=== PATIENT | female | born 1970 | race Caucasian/White ===

== ENCOUNTER → 2018-09-28 | Outpatient (CLI) | payer OTHER ==
[~2018-09-28] MED LIST: CLIN300C3 PO
== END ==
LOC: LAB FS 08:46
PROVIDERS: ATTEND Pediatrics
DX: E11.9 Type 2 diabetes mellitus without complications (principal)
CPT/HCPCS: 36415; 83036

== ENCOUNTER → 2018-10-31 | Outpatient (CLI) | payer OTHER ==
--- NOTE | 2018-10-31 19:12 | Diagnostic Imaging Report ---
INDICATION: Back pain. AP and lateral views of the lumbar spine are obtained. FINDINGS: The lumbar vertebrae are normal in height and alignment. There is no fracture or subluxation. Disc spaces are normal in height. There is no acute bony abnormality. IMPRESSION: No acute bony abnormality of lumbar spine. Dictated by: Dictated on workstation # [id number]
== END ==
LOC: RAD 16:21
PROVIDERS: ATTEND Pediatrics
DX: M54.41 Lumbago with sciatica, right side (principal); M54.42 Lumbago with sciatica, left side
CPT/HCPCS: 72100

== ENCOUNTER 2022-03-13 09:35 | Emergency (ER) | payer OTHER ==
[~2022-03-13] VITALS: Ht 177.8 cm; Wt 145.0 kg
[2022-03-13 10:26] LABS: BASOPHILS # (AUTO) 0.1 10^3/uL (0.0-0.1); BASOPHILS % (AUTO) 1 % (0-10); EOSINOPHILS # (AUTO) 0.2 10^3/uL (0.0-0.3); EOSINOPHILS % (AUTO) 2 % (0-10); HEMATOCRIT 41 % (35-52); HEMOGLOBIN 12.3 g/dL (11.5-16.0); LYMPHOCYTES # (AUTO) 2.7 10^3/uL (1.0-4.0); LYMPHOCYTES % (AUTO) 31 % (12-44); MEAN CORPUSCULAR HEMOGLOBIN 24 pg (25-34); MEAN CORPUSCULAR HGB CONC 30 g/dL (32-36); MEAN CORPUSCULAR VOLUME 82 fL (80-99); MEAN PLATELET VOLUME 9.5 fL (9.0-12.2); MONOCYTES # (AUTO) 0.5 10^3/uL (0.0-1.0); MONOCYTES % (AUTO) 6 % (0-12); NEUTROPHILS # (AUTO) 5.3 10^3/uL (1.8-7.8); NEUTROPHILS % (AUTO) 60 % (42-75); PLATELET COUNT 422 10^3/uL (130-400); WHITE BLOOD COUNT 8.7 10^3/uL (4.3-11.0)
[2022-03-13 10:32] LABS: ALBUMIN 4.1 GM/DL (3.2-4.5); INR 1.3 (0.8-1.4); POTASSIUM 3.9 MMOL/L (3.6-5.0); PROTHROMBIN TIME PATIENT 16.5 SEC (12.2-14.7)
--- NOTE | 2022-03-13 10:32 | ED Chest Pain ---
General Chief Complaint: Chest Pain Stated Complaint: IRR HEART RATE Nursing Triage Note: PT AMBULATE TO ROOM 06 WITHOUT DIFFICULTY WITH C/O CHEST DISCOMFORT, TACHYCARDIA, LEFT LEG SWELLING. PT STATES THAT SHE TOOK HER BP AT HOME THIS MORNING AND IT SHOWED HER PULSE AT 126BPM Source: patient Exam Limitations: no limitations History of Present Illness Date Seen by Provider: Mar 13, 2022 Time Seen by Provider: 10:00 Initial Comments Here with report of 3 days of palpitations and increasing fatigue with noticeable change last night. Also reports about a 4 pound weight gain in that same timeframe. Does have history of atrial flutter and fibrillation. She had previous ablation 4 years ago and has been relatively stable until 3 weeks ago when she was in [facility]. She had developed atrial flutter at that time and had cardioversion done. She is on sotalol and Eliquis. She reports taking those as directed although she has not had her morning dose of either. She follows with cardiology at . Her primary care doctor is Dr. Sheriff. Denies constitutional symptoms other than some night sweats which is typical for her. She has had tiredness and fatigue as well. Timing/Duration: getting worse, changing over time, 3-4 days Severity/Quality: mild, moderate Location: central Radiation: no radiation Prior CP/Workup: echocardiography, stress test Modifying Factors: improves with rest ASA po MOSHGIACH: Yes NTG SL MOSHGIACH: No Associated Symptoms: No abdominal pain, No edema; fatigue; No fever/chills, No nausea/vomiting; shortness of breath; No weakness Allergies and Home Medications Allergies Coded Allergies: sulfamethoxazole (Unverified Allergy, Intermediate, HIVES, 12/08/14) trimethoprim (Unverified Allergy, Intermediate, HIVES, 12/08/14) amoxicillin (Unverified Allergy, Unknown, 12/08/14) doxycycline (Unverified Allergy, Unknown, 12/08/14) Patient Home Medication List Home Medication List Reviewed: Yes Clindamycin Hcl (Cleocin Hcl) 300 Mg Capsule, 1 EACH PO QID Prescribed by: MARGARITO TRAN on 12/08/142024 Review of Systems Review of Systems Constitutional: see HPI; No chills, No fever EENTM: No Nose Congestion, No Throat Pain Respiratory: Denies Cough; Shortness of Air Cardiovascular: Irregular Heart Rate, Palpitations Gastrointestinal: Denies Nausea, Denies Vomiting Genitourinary: No Symptoms Reported Musculoskeletal: No muscle pain, No neck pain Skin: no symptoms reported Psychiatric/Neurological: Denies Numbness, Denies Weakness All Other Systems Reviewed Negative Unless Noted: Yes Past Fnezyas-Rpndbu-Umxeuf Hx Patient Social History Tobacco Use?: No Smoking Status: Never a Smoker Smokeless Tobacco Frequency: Never a User Use of E-Cig and/or Vaping dev: No Use of E-Cig and/or Vaping Marco: Never a User Substance type: Other Additional substance use comme: THC GUMMIES Substance frequency: Daily Alcohol Use?: No Pt feels they are or have been: No Immunizations Up To Date COVID19 Vaccine Director Of Recruitment And Admissions: MODERNA Past Medical History Surgeries: Yes Cardiac (Ablation), Gallbladder Respiratory: No Cardiac: Yes Atrial Fibrillation, Irregular Heartbeat, Palpitations Neurological: No Reproductive Disorders: No Sexually Transmitted Disease: No Family Medical History Reviewed Nursing Family Hx Physical Exam Vital Signs Vital Signs - First Documented 03/13/22 03/13/22 03/13/22 09:36 13:13 13:26 Temp 36.2 Pulse 125 Resp 18 B/P (MAP) 135/113 (120) Pulse Ox 100 O2 Delivery Room Air O2 Flow Rate 5.00 Capillary Refill : Less Than 3 Seconds Height, Weight, BMI Height: 5'10" Weight: 320lbs. oz. 145.591380jl; 45.00 BMI Method:Stated General Appearance: No Apparent Distress, WD/WN, Obese HEENT: PERRL/EOMI, Pharynx Normal Neck: Non Tender, Supple Respiratory: Lungs Clear, Normal Breath Sounds Cardiovascular: Irregularly Irregular, Tachycardia Gastrointestinal: No Pulsatile Mass, Non Tender, Soft Extremity: Normal Range of Motion, Non Tender Neurologic/Psychiatric: Alert, Oriented x3 Skin: Normal Color, Warm/Dry Procedures/Interventions Patient Education: Explained Benefits Agreement on procedure with pt: Yes Progress/Results/Core Measures Results/Orders Lab Results Laboratory Tests Test 03/13/22 09:47 Range/Units White Blood Count 8.7 4.3-11.0 10^3/uL Red Blood Count 5.05 3.80-5.11 10^6/uL Hemoglobin 12.3 11.5-16.0 g/dL Hematocrit 41 35-52 % Mean Corpuscular Volume 82 80-99 fL Mean Corpuscular Hemoglobin 24 L 25-34 pg Mean Corpuscular Hemoglobin Concent 30 L 32-36 g/dL Red Cell Distribution Width 15.0 H 10.0-14.5 % Platelet Count 422 H 130-400 10^3/uL Mean Platelet Volume 9.5 9.0-12.2 fL Immature Granulocyte % (Auto) 0 % Neutrophils (%) (Auto) 60 42-75 % Lymphocytes (%) (Auto) 31 12-44 % Monocytes (%) (Auto) 6 0-12 % Eosinophils (%) (Auto) 2 0-10 % Basophils (%) (Auto) 1 0-10 % Neutrophils # (Auto) 5.3 1.8-7.8 10^3/uL Lymphocytes # (Auto) 2.7 1.0-4.0 10^3/uL Monocytes # (Auto) 0.5 0.0-1.0 10^3/uL Eosinophils # (Auto) 0.2 0.0-0.3 10^3/uL Basophils # (Auto) 0.1 0.0-0.1 10^3/uL Immature Granulocyte # (Auto) 0.0 0.0-0.1 10^3/uL Prothrombin Time 16.5 H 12.2-14.7 SEC INR Comment 1.3 0.8-1.4 Activated Partial Thromboplast Time 33 24-35 SEC Sodium Level 141 135-145 MMOL/L Potassium Level 3.9 3.6-5.0 MMOL/L Chloride Level 105 98-107 MMOL/L Carbon Dioxide Level 22 21-32 MMOL/L Anion Gap 14 5-14 MMOL/L Blood Urea Nitrogen 14 7-18 MG/DL Creatinine 0.87 0.60-1.30 MG/DL Estimat Glomerular Filtration Rate 81 BUN/Creatinine Ratio 16 Glucose Level 148 H 70-105 MG/DL Calcium Level 9.3 8.5-10.1 MG/DL Corrected Calcium 9.2 8.5-10.1 MG/DL Magnesium Level 1.7 1.6-2.4 MG/DL Total Bilirubin 1.1 H 0.1-1.0 MG/DL Aspartate Amino Transf (AST/SGOT) 17 5-34 U/L Alanine Aminotransferase (ALT/SGPT) 24 0-55 U/L Alkaline Phosphatase 88 40-136 U/L Myoglobin 25.6 10.0-92.0 NG/ML Troponin I < 0.028 <0.028 NG/ML B-Type Natriuretic Peptide 374.1 H <100.0 PG/ML Total Protein 8.1 6.4-8.2 GM/DL Albumin 4.1 3.2-4.5 GM/DL My Orders Orders - JARED HOPKINS MD Ekg Tracing (03/13/22 09:38) Cbc With Automated Diff (03/13/22 10:19) Magnesium (03/13/22 10:19) Chest 1 View, Ap/Pa Only (03/13/22 10:19) Ekg Tracing (03/13/22 10:19) Comprehensive Metabolic Panel (03/13/22 10:19) Myoglobin Serum (03/13/22 10:19) Protime With Inr (03/13/22 10:19) Partial Thromboplastin Time (03/13/22 10:19) O2 (03/13/22 10:19) Monitor-Rhythm Ecg Trace Only (03/13/22 10:19) Lipid Panel (03/14/22 06:00) Ed Iv/Invasive Line Start (03/13/22 10:19) Bnp [place] (03/13/22 10:19) Troponin I [place] (03/13/22 10:19) Propofol Injection (Diprivan Injection) (03/13/22 12:38) Propofol Injection (Diprivan Injection) (03/13/22 14:00) Vital Signs/I&O 03/13/22 03/13/22 03/13/22 09:36 13:13 13:26 Temp 36.2 36.7 Pulse 125 125 Resp 18 17 B/P (MAP) 135/113 (120) 124/74 Pulse Ox 100 O2 Delivery Room Air OxyMask OxyMask O2 Flow Rate 5.00 5.00 Blood Pressure Mean: 120 Progress Progress Note : Progress Note Seen and evaluated. IV, labs, EKG and chest x-ray ordered. Patient and atrial fibrillation with rapid ventricular response. 1022: I did call cardiology and discussed the case with Dr. Pascual. Given that she has had previous ablation and has recently had successful cardioversion, Dr Pascual would like to pursue synchronized cardioversion in the emergency department. He will see the patient in the ER. 1216: We will pursue cardioversion. Dr Pascual has seen the patient. 1320: Patient did have successful cardioversion under moderate sedation with sedation performed by me and cardioversion performed by Dr. Pascual. We will monitor her for post sedation concerns and maintenance of sinus rhythm. 1400: Patient is doing much better. I have reevaluated her. She remains with sinus rhythm and the heart rate in the 80s. Discharged home with return precautions. Patient verbalized understanding instructions and agreement with plan. Initial ECG Impression Date: Mar 13, 2022 Initial ECG Impression Time: 09:44 Initial ECG Rate: 119 Initial ECG Rhythm: A Fib/Flutter Initial ECG Impression: Atrial Fibrillation w/RVR Comment Atrial fibrillation with rapid ventricular response with rightward axis. Interventricular conduction delay noted. No evidence of ST elevation NC. Interpreted by me and reviewed with cardiology. Diagnostic Imaging Diagonstic Imaging: Xray Plain Films/CT/US/NM/MRI: chest Comments [facility], [facility]. [place], [place] NAME: ALISON GRIGGS [facility] REC#: [id number] PT STATUS: REG ER : 1970 PHYSICIAN: JARED HOPKINS MD ADMIT DATE: 03/13/22/ER Draft Date of Exam:03/13/22 CHEST 1 VIEW, AP/PA ONLY Indication: Chest discomfort and tachycardia. Time of Exam: 10:36 AM No prior studies are available for comparison. Heart is enlarged. There is central congestion but no overt failure. No effusion or pneumothorax is detected. Impression: Cardiomegaly and central congestion. Dictated on workstation # [id number] Dict: 03/13/22 1038 Trans: 03/13/22 1053 CV [id number] Interpreted by: MARGA MELENDREZ MD Electronically signed by: Departure Impression Primary Impression: Atrial fibrillation with rapid ventricular response Additional Impression: Encounter for cardioversion procedure Disposition: 01 HOME, SELF-CARE Condition: Improved Departure-Patient Inst. Decision time for Depature: 14:12 Referrals: BARBRA SHERIFF MD (PCP/Family) Primary Care Physician Patient Instructions: Atrial Fibrillation (DC), Cardioversion, Moderate Sedation in Adults (DC) Add. Discharge Instructions: All discharge instructions reviewed with patient and/or family. Voiced understanding. Continue home medications as previously prescribed. Follow-up with your cooler supervisor this week for recheck and further evaluation. Call their office Tuesday morning for appointment and to discuss current events. Return for worse pain, fever, vomiting, weakness, breathing problems, rapid heart rate or other concerns as needed. JARED HOPKINS MD Mar 13, 2022 10:32
[2022-03-13 10:33] LABS: CALCIUM 9.3 MG/DL (8.5-10.1)
[2022-03-13 10:34] LABS: TOTAL PROTEIN 8.1 GM/DL (6.4-8.2)
[2022-03-13 10:36] LABS: BILIRUBIN,TOTAL 1.1 MG/DL (0.1-1.0)
[2022-03-13 10:38] LABS: CREATININE SERUM 0.87 MG/DL (0.60-1.30)
[2022-03-13 10:41] LABS: MAGNESIUM 1.7 MG/DL (1.6-2.4)
--- NOTE | 2022-03-13 10:53 | Diagnostic Imaging Report ---
Indication: Chest discomfort and tachycardia. Time of Exam: 10:36 AM No prior studies are available for comparison. Heart is enlarged. There is central congestion but no overt failure. No effusion or pneumothorax is detected. Impression: Cardiomegaly and central congestion. Dictated by: Dictated on workstation # [id number]
--- NOTE | 2022-03-13 11:05 | Consultation-Cardiology ---
HPI-Cardiology Cardiology Consultation: Date of Consultation 03/13/22 Time Seen by a Provider: 10:45 Date of Admission Attending Physician Joseph Kwok MD Admitting Physician Admitting Physician: Attending Physician: Consulting Physician MICHELLE HATHAWAY MD, MA, FACP, FACC, FSCAI, CCDS HPI: Chief Complaint: Malaise, weakness, irreg heart rate 51 yo woman with known PAF, s/p ablation PAF ablation x 2 ([id number]), s/p percutaneous ASD repair in 2017 (after PAF ablation), and subsequently on sotalol. Had CV at [place], [place] 2 weeks ago. Has been having malaise for two days and found pulse to be irreg today. Notes some increased shortness of breath for the last 1-2 days. No cp or palp. Chronic leg swelling that has been somewhat worse lately Review of Systems-Cardiology Review of Systems Constitutional: As described under HPI Eyes: No vision change Ears/Nose/Throat: No ear discharge, No nasal drainage, No recent hearing loss, No ulcerations Respiratory: As described under HPI Cardiovascular: As described under HPI Gastrointestinal: No diarrhea, No nausea, No vomiting Genitourinary: No dysuria, No hematuria, No urine frequency changes Musculoskeletal: No back pain, No joint pain Skin: No rash, No ulcerations Psychiatric/Neurological: No seizure, No focal weakness, No syncope Hematologic: No bleeding abnormalities YJY-Dvvouu-Vqtnwi Hx Patient Social History Smoking Status: Never a Smoker Former smoker/When Quit: Dec 06, 1995 Have you traveled recently?: No Alcohol Use?: No Substance type: Other Pt feels they are or have been: No Past Medical History PMH As described under Assessment. Allergies and Home Medications Allergies Coded Allergies: sulfamethoxazole (Unverified Allergy, Intermediate, HIVES, 12/08/14) trimethoprim (Unverified Allergy, Intermediate, HIVES, 12/08/14) amoxicillin (Unverified Allergy, Unknown, 12/08/14) doxycycline (Unverified Allergy, Unknown, 12/08/14) Patient Home Medication List Home Medication List Reviewed: Yes Clindamycin Hcl (Cleocin Hcl) 300 Mg Capsule, 1 EACH PO QID Prescribed by: MARGARITO TRAN on 12/08/142024 Physical Exam-Cardiology Physical Exam Vital Signs/I&O 03/13/22 09:36 Temp 36.2 Pulse 125 Resp 18 B/P (MAP) 135/113 (120) O2 Delivery Room Air Capillary Refill : Less Than 3 Seconds Constitutional: AAO x 3, well-developed, well-nourished HEENT: PERRL, EOMI, hearing is well preserved Neck: carotid pulses are 2 + bilaterally, with good upstrokes Respiratory: accessory muscle use, other (good, bilat air entry) Cardiovascular: regular rate-rhythm, S1 and S2, systolic murmur (faint RIC at card lore) Gastrointestinal: No tender; soft; No guarding, No rebound; audible bowel sounds Extremities: No clubbing, No cyanosis, No significant edema Neurologic/Psychiatric: other (moves all limb equally) Skin: normal color, warm/dry; No rash on exposed areas, No ulcerations on exposed areas Data Review Labs Laboratory Tests 03/13/22 09:47: White Blood Count 8.7, Red Blood Count 5.05, Hemoglobin 12.3, Hematocrit 41, Mean Corpuscular Volume 82, Mean Corpuscular Hemoglobin 24L, Mean Corpuscular Hemoglobin Concent 30L, Red Cell Distribution Width 15.0H, Platelet Count 422H, Mean Platelet Volume 9.5, Immature Granulocyte % (Auto) 0, Neutrophils (%) (Aut o) 60, Lymphocytes (%) (Auto) 31, Monocytes (%) (Auto) 6, Eosinophils (%) (Auto) 2, Basophils (%) (Auto) 1, Neutrophils # (Auto) 5.3, Lymphocytes # (Auto) 2.7, Monocytes # (Auto) 0.5, Eosinophils # (Auto) 0.2, Basophils # (Auto) 0.1, Immature Granulocyte # (Auto) 0.0, Prothrombin Time 16.5H, INR Comment 1.3, Activated Partial Thromboplast Time 33, Sodium Level 141, Potassium Level 3.9, Chloride Level 105, Carbon Dioxide Level 22, Anion Gap 14, Blood Urea Nitrogen 14, Creatinine 0.87, Estimat Glomerular Filtration Rate 81, BUN/Creatinine Ratio 16, Glucose Level 148H, Calcium Level 9.3, Corrected Calcium 9.2, Magnesium Level 1.7, Total Bilirubin 1.1H, Aspartate Amino Transf (AST/SGOT) 17, Alanine Aminotransferase (ALT/SGPT) 24, Alkaline Phosphatase 88, Myoglobin 25.6, Troponin I < 0.028, B-Type Natriuretic Peptide 374.1H, Total Protein 8.1, Albumin 4.1 Laboratory Tests 03/13/22 09:47 A/P-Cardiology Assessment/Admission Diagnosis PAF - recurrent on multiple occasions after ablation x 2 in 2016 and 2017 despite therapy with s[address]ol. Dr Sánchez manages at [facility] - treated with cardioversion at [place], [place] in early Oc 2021 - chronically on Eliquis (no interruption in the recent past; last dose last night) Percutaneous ASD repair in 2017 Untreated CRISTINA (awaiting CPAP, she says) Discussion and Recomendations * Discussed with her in detail. She says she was hospitalized at [place] two week ago. They did not give Eliquis the night of admission and underwent MICHELLE and cardioversion. Has not missed any Eliquis prior to that or after that. We discussed the procedure, risks, benefits, potential complications, and alternatives of elec CV. She understands and provides informed consent. Discussed with Dr Duran. Probable d/c if ablation successful and w/o complic. Advised early f/u with pcp, insurance verification clerk, and EP * Advised full sleep apnea treatment beginning tonight. Clinical Quality Measures AMI/AHF: ASA po Prior to arrival: Yes MICHELLE HATHAWAY MD FACP [facility] CCDS Mar 13, 2022 11:05
[2022-03-13] MEDS ORDERED: proPOfol 200 MG/20 ML (DIPRIVAN) VIAL IV ONE ×2 (12:38→14:00)
[2022-03-13 14:27] VITALS: BP 119/88
--- NOTE | 2022-03-13 22:44 | OPERATIVE REPORT ---
DATE OF SERVICE: 03/13/2022 PREOPERATIVE DIAGNOSIS: Atrial fibrillation. POSTOPERATIVE DIAGNOSIS: Sinus rhythm. PROCEDURE: External electrical cardioversion. DESCRIPTION OF PROCEDURE: External electrical cardioversion was carried out after having obtained an informed consent. 120 joules of synchronized biphasic shock was delivered through external pads, which converted atrial fibrillation to normal sinus rhythm. She tolerated the procedure well. Short-acting anesthesia was administered by the emergency room physician, Dr. Duran. Job ID: [id number] DocumentID: [id number] Dictated Date: 03/13/2022 14:41:20 Telecommunications Line Installer Date: 03/13/2022 22:43:54 Dictated By: MICHELLE HATHAWAY MD, MA, FACP, FACC,
== END 2022-03-13 14:30 | disposition home or self-care (01) ==
LOC: EDUNIT# 09:35 → ER 09:38
DX: I48.20 Chronic atrial fibrillation, unspecified (principal); Z45.018 Encounter for adjustment and management of other part of cardiac pacemaker
CPT/HCPCS: 36415; 71045; 80053; 83735; 83874; 83880; 84484; 85025; 85610; 85730; 93005; 93041

== ENCOUNTER 2022-03-26 15:34 | Emergency (ER) | payer OTHER ==
[~2022-03-26] VITALS: Ht 177 cm; Wt 147.0 kg
--- NOTE | 2022-03-26 15:46 | ED Cardiac General ---
History of Present Illness General Chief Complaint: Cardiac/General Problems Stated Complaint: IRR HR,FEET SWELLING,SOA Nursing Triage Note: PT ARRIVED VIA AMB WITH COMPLAINTS OF IRR HIGH HR STARTING THIS AM. PT ALSO COMPLAINS OF SOA AND SWELLING IN ANKLES. WAS SEEN HERE 2 WEEKS AGO. History of Present Illness Date Seen by Provider: Mar 26, 2022 Time Seen by Provider: 15:46 Initial Comments Patient presents to the emergency department for irregular high heart rate that started this AM. History of a fib in the past. Feels like she is back into the abnormal rhythm. Does take blood thinners and betablockers. Reports some heaviness in chest along with some shortness of breath. Has noticed some swelling in bilateral lower extremities in addition. Was seen here a few weeks ago for similar complaints and was cardioverted back into sinus rhythm. Timing/Duration: 4-6 hours Severity: mild Location: central Activities at Onset: none Associated Systoms: Chest Pain; No Diaphoresis, No Fever/Chills, No Headaches, No Nausea/Vomiting; Shortness of Air Allergies and Home Medications Allergies Coded Allergies: sulfamethoxazole (Unverified Allergy, Intermediate, HIVES, 12/08/14) trimethoprim (Unverified Allergy, Intermediate, HIVES, 12/08/14) amoxicillin (Unverified Allergy, Unknown, 12/08/14) doxycycline (Unverified Allergy, Unknown, 12/08/14) Patient Home Medication List Home Medication List Reviewed: Yes Clindamycin Hcl (Cleocin Hcl) 300 Mg Capsule, 1 EACH PO QID Prescribed by: MARGARITO TRAN on 12/08/142024 Review of Systems Review of Systems Constitutional: No chills, No dizziness, No fever, No malaise EENTM: No Symptoms Reported Respiratory: Denies Cough; Shortness of Air; Denies Wheezing Cardiovascular: Chest Pain, Irregular Heart Rate; Denies Lightheadedness; Palpitations Gastrointestinal: Denies Abdominal Pain, Denies Diarrhea, Denies Nausea, Denies Vomiting Genitourinary: No Symptoms Reported Musculoskeletal: no symptoms reported Skin: no symptoms reported Psychiatric/Neurological: Denies Headache All Other Systems Reviewed Negative Unless Noted: Yes Past Mqpjrti-Jeausi-Ylykel Hx Patient Social History Tobacco Use?: No Substance use?: Yes Additional substance use comme: GUMMIES TO SLEEP Alcohol Use?: No Immunizations Up To Date COVID19 Vaccine Med Dir: MODERNA Past Medical History Surgeries: Yes Cardiac, Gallbladder Respiratory: No Cardiac: Yes Atrial Fibrillation, Irregular Heartbeat, Palpitations Neurological: No Reproductive Disorders: No Sexually Transmitted Disease: No Family Medical History Reviewed Nursing Family Hx Physical Exam Vital Signs Vital Signs - First Documented 03/26/22 15:38 Temp 36.3 Pulse 141 Resp 16 B/P (MAP) 115/75 (88) Pulse Ox 94 O2 Delivery Room Air Capillary Refill : Height, Weight, BMI Height: 5'10" Weight: 320lbs. oz. 145.462818yv; 46.00 BMI Method:Stated General Appearance: No Apparent Distress Neck: Full Range of Motion, Normal Inspection, Non Tender, Supple Respiratory: Chest Non Tender, Lungs Clear, Normal Breath Sounds, No Accessory Muscle Use, No Respiratory Distress Cardiovascular: Normal Peripheral Pulses, Irregularly Irregular, Other (mild lower extremity swelling 1+ appreciated) Gastrointestinal: Normal Bowel Sounds, Non Tender, Soft Extremity: Normal Inspection, Normal Range of Motion, Non Tender Neurologic/Psychiatric: Alert, Oriented x3 Skin: Normal Color, Warm/Dry Procedures/Interventions Patient Education: Explained Benefits Progress/Results/Core Measures Results/Orders Lab Results Laboratory Tests Test 03/26/22 15:45 Range/Units White Blood Count 10.4 4.3-11.0 10^3/uL Red Blood Count 4.58 3.80-5.11 10^6/uL Hemoglobin 11.3 L 11.5-16.0 g/dL Hematocrit 37 35-52 % Mean Corpuscular Volume 82 80-99 fL Mean Corpuscular Hemoglobin 25 25-34 pg Mean Corpuscular Hemoglobin Concent 30 L 32-36 g/dL Red Cell Distribution Width 14.9 H 10.0-14.5 % Platelet Count 330 130-400 10^3/uL Mean Platelet Volume 9.0 9.0-12.2 fL Immature Granulocyte % (Auto) 0 % Neutrophils (%) (Auto) 66 42-75 % Lymphocytes (%) (Auto) 23 12-44 % Monocytes (%) (Auto) 7 0-12 % Eosinophils (%) (Auto) 3 0-10 % Basophils (%) (Auto) 1 0-10 % Neutrophils # (Auto) 6.9 1.8-7.8 10^3/uL Lymphocytes # (Auto) 2.4 1.0-4.0 10^3/uL Monocytes # (Auto) 0.7 0.0-1.0 10^3/uL Eosinophils # (Auto) 0.3 0.0-0.3 10^3/uL Basophils # (Auto) 0.1 0.0-0.1 10^3/uL Immature Granulocyte # (Auto) 0.0 0.0-0.1 10^3/uL Prothrombin Time 16.0 H 12.2-14.7 SEC INR Comment 1.2 0.8-1.4 Activated Partial Thromboplast Time 34 24-35 SEC Sodium Level 143 135-145 MMOL/L Potassium Level 3.2 L 3.6-5.0 MMOL/L Chloride Level 106 98-107 MMOL/L Carbon Dioxide Level 24 21-32 MMOL/L Anion Gap 13 5-14 MMOL/L Blood Urea Nitrogen 7 7-18 MG/DL Creatinine 0.80 0.60-1.30 MG/DL Estimat Glomerular Filtration Rate 89 BUN/Creatinine Ratio 9 Glucose Level 114 H 70-105 MG/DL Calcium Level 9.2 8.5-10.1 MG/DL Corrected Calcium 9.1 8.5-10.1 MG/DL Magnesium Level 1.6 1.6-2.4 MG/DL Total Bilirubin 1.0 0.1-1.0 MG/DL Aspartate Amino Transf (AST/SGOT) 13 5-34 U/L Alanine Aminotransferase (ALT/SGPT) 16 0-55 U/L Alkaline Phosphatase 88 40-136 U/L Myoglobin 25.4 10.0-92.0 NG/ML Troponin I < 0.028 <0.028 NG/ML B-Type Natriuretic Peptide 447.5 H <100.0 PG/ML Total Protein 7.7 6.4-8.2 GM/DL Albumin 4.1 3.2-4.5 GM/DL Lipase 18 8-78 U/L My Orders Orders - VANESSA DODD APRN Cbc With Automated Diff (03/26/22 15:49) Magnesium (03/26/22 15:49) Chest 1 View, Ap/Pa Only (03/26/22 15:49) Comprehensive Metabolic Panel (03/26/22 15:49) Myoglobin Serum (03/26/22 15:49) Protime With Inr (03/26/22 15:49) Partial Thromboplastin Time (03/26/22 15:49) O2 (03/26/22 15:49) Monitor-Rhythm Ecg Trace Only (03/26/22 15:49) Ed Iv/Invasive Line Start (03/26/22 15:49) Lipase (03/26/22 15:49) Bnp Maryann (03/26/22 15:49) Troponin I Maryann (03/26/22 15:49) Diltiazem Injection (Cardizem Injection) (03/26/22 16:00) Diltiazem Drip Pre-Mix (Cardizem Drip Pr (03/26/22 16:00) Potassium Chloride (Tablet) (K Dur Table (03/26/22 16:30) Furosemide Injection (Lasix Injection) (03/26/22 17:00) Ekg Tracing (03/26/22 17:14) Medications Given in ED Current Medications Medications Dose Ordered Sig/Tanisha Route Start Time Stop Time Status Last Admin Dose Admin Diltiazem HCl 10 mg ONCE ONCE IVP 03/26/22 16:00 03/26/22 16:01 DC 03/26/22 15:58 10 MG Furosemide 20 mg ONCE ONCE IVP 03/26/22 17:00 03/26/22 17:01 DC 03/26/22 17:28 20 MG Potassium Chloride 20 meq ONCE ONCE PO 03/26/22 16:30 03/26/22 16:31 DC 03/26/22 16:29 20 MEQ Vital Signs/I&O 03/26/22 03/26/22 03/26/22 03/26/22 15:38 15:58 16:00 17:35 Temp 36.3 Pulse 141 137 135 73 Resp 16 16 B/P (MAP) 115/75 (88) 115/78 115/78 119/72 Pulse Ox 94 98 O2 Delivery Room Air Room Air Progress Progress Note : Progress Note Patient arrives to the department in atrial fib. Will check labs and EKG. Will give bolus of Cardizem and start on gtt. 1723: Patient has converted to sinus rhythm. She reports that she feels a lot better. Has appointments scheduled next week. Will continue medications at home Declined admission to the hospital. Reasons to return to the ER were discussed with patient in addition. Initial ECG Impression Date: Mar 26, 2022 Initial ECG Impression Time: 15:43 Initial ECG Rate: 126 Initial ECG Rhythm: A Fib/Flutter Initial ECG Impression: Atrial Fibrillation w/RVR EKG : EKG Time: 17:16 Rate: 71 Rhythm: Normal Sinus Diagnostic Imaging Diagonstic Imaging: Xray Plain Films/CT/US/NM/MRI: chest Comments NAME: ALISON GRIGGS [facility] REC#: [id number] PT STATUS: REG ER : 1970 PHYSICIAN: VANESSA DODD APRN ADMIT DATE: 03/26/22/ER Draft Date of Exam:03/26/22 CHEST 1 VIEW, AP/PA ONLY INDICATION: Tachycardia and shortness of breath. TECHNIQUE: Frontal chest obtained at 02:52 p.m. and compared to 03/13/2022. FINDINGS: There is cardiomegaly. There is prominence of the central pulmonary arteries, compatible with pulmonary arterial hypertension. There is no gualberto edema or consolidation or pleural fluid. IMPRESSION: Cardiomegaly and findings compatible with pulmonary arterial hypertension. No acute consolidation or pleural fluid. Dictated on workstation # [id number] Dict: 03/26/22 1614 Trans: 03/26/22 1622 [id number] Interpreted by: ARUNA WOLF MD Electronically signed by: Departure Impression Primary Impression: Atrial fibrillation with rapid ventricular response Disposition: 01 HOME, SELF-CARE Condition: Stable Departure-Patient Inst. Decision time for Depature: 17:25 Referrals: BARBRA SHERIFF MD (PCP/Family) Primary Care Physician Patient Instructions: Atrial Fibrillation (DC) Add. Discharge Instructions: 1. You converted back to sinus rhythm today. 2. Continue your medications as directed. 3. Follow up with PCP as needed. 4. Return here if worse or concerns. All discharge instructions reviewed with patient and/or family. Voiced under standing. VANESSA DODD APRN Mar 26, 2022 15:46
[2022-03-26 15:56] LABS: BASOPHILS # (AUTO) 0.1 10^3/uL (0.0-0.1); BASOPHILS % (AUTO) 1 % (0-10); EOSINOPHILS # (AUTO) 0.3 10^3/uL (0.0-0.3); EOSINOPHILS % (AUTO) 3 % (0-10); HEMATOCRIT 37 % (35-52); HEMOGLOBIN 11.3 g/dL (11.5-16.0); LYMPHOCYTES # (AUTO) 2.4 10^3/uL (1.0-4.0); LYMPHOCYTES % (AUTO) 23 % (12-44); MEAN CORPUSCULAR HEMOGLOBIN 25 pg (25-34); MEAN CORPUSCULAR HGB CONC 30 g/dL (32-36); MEAN CORPUSCULAR VOLUME 82 fL (80-99); MONOCYTES # (AUTO) 0.7 10^3/uL (0.0-1.0); MONOCYTES % (AUTO) 7 % (0-12); NEUTROPHILS # (AUTO) 6.9 10^3/uL (1.8-7.8); NEUTROPHILS % (AUTO) 66 % (42-75); PLATELET COUNT 330 10^3/uL (130-400); WHITE BLOOD COUNT 10.4 10^3/uL (4.3-11.0)
[2022-03-26] MEDS ORDERED: dilTIAZem DRIP PRE-MIX 125 ML IV SCH (16:00)
[2022-03-26 16:10] LABS: ALBUMIN 4.1 GM/DL (3.2-4.5)
[2022-03-26 16:11] LABS: POTASSIUM 3.2 MMOL/L (3.6-5.0)
[2022-03-26 16:12] LABS: CALCIUM 9.2 MG/DL (8.5-10.1)
[2022-03-26 16:13] LABS: INR 1.2 (0.8-1.4); TOTAL PROTEIN 7.7 GM/DL (6.4-8.2)
[2022-03-26 16:17] LABS: CREATININE SERUM 0.8 MG/DL (0.60-1.30)
[2022-03-26 16:19] LABS: MAGNESIUM 1.6 MG/DL (1.6-2.4)
--- NOTE | 2022-03-26 16:23 | Diagnostic Imaging Report ---
INDICATION: Tachycardia and shortness of breath. TECHNIQUE: Frontal chest obtained at 02:52 p.m. and compared to 03/13/2022. FINDINGS: There is cardiomegaly. There is prominence of the central pulmonary arteries, compatible with pulmonary arterial hypertension. There is no gualberto edema or consolidation or pleural fluid. IMPRESSION: Cardiomegaly and findings compatible with pulmonary arterial hypertension. No acute consolidation or pleural fluid. Dictated by: Dictated on workstation # [id number]
[2022-03-26] MEDS ORDERED: KCL 20 MEQ TAB (K-DUR) PO ONE (16:30)
[2022-03-26] MEDS ORDERED: FUROSEMIDE 40 MG/4 ML INJ (LASIX) IVP ONE (17:00)
[2022-03-26 17:35] VITALS: BP 119/72
== END 2022-03-26 17:35 | disposition home or self-care (01) ==
LOC: EDUNIT# 15:34 → ER 15:36
DX: I48.20 Chronic atrial fibrillation, unspecified (principal); Z98.890 Other specified postprocedural states
CPT/HCPCS: 36415; 71045; 80053; 83690; 83735; 83874; 83880; 84484; 85025; 85610; 85730; 93005; 93041

== ENCOUNTER 2022-04-13 18:55 | Emergency (ER) | payer OTHER ==
--- NOTE | 2022-04-13 19:09 | ED Cardiac General ---
History of Present Illness General Chief Complaint: Cardiac/General Problems Stated Complaint: IRR HR,SOA,ANKLES SWELLING Source: patient Exam Limitations: no limitations (ANA HANNA APRN) History of Present Illness Date Seen by Provider: Apr 13, 2022 Time Seen by Provider: 19:00 Initial Comments Patient is a 51-year-old female who presents to the emergency department for evaluation of irregular heart rate, shortness of air, and increased ankle swelling that began a few hours prior to arrival. Patient has a history of atrial fibrillation and currently takes beta-blockers and anticoagulants. Patient states she had an ablation approximately 5 years ago and was placed on sotalol at that time. She states she had no issues for several years until the last few months. She states she has had 4 episodes of the symptomology requiring her to present to the emergency department. Twice she was cardioverted and at the last visit to the ER she converted with medication. Denies any chest pain. States she does have increased shortness of air with exertion. Her normal actuarial mathematician is at . She states the next month she has an admission planned for an increase in her sotalol to see if that would help prevent these episodes. Patient denies any specific provoking event. (ANA HANNA APRN) Allergies and Home Medications Allergies Coded Allergies: sulfamethoxazole (Unverified Allergy, Intermediate, HIVES, 12/08/14) trimethoprim (Unverified Allergy, Intermediate, HIVES, 12/08/14) amoxicillin (Unverified Allergy, Unknown, 12/08/14) doxycycline (Unverified Allergy, Unknown, 12/08/14) Patient Home Medication List Home Medication List Reviewed: Yes (ANA HANNA APRN) Clindamycin Hcl (Cleocin Hcl) 300 Mg Capsule, 1 EACH PO QID Prescribed by: MARGARITO TRAN on 12/08/142024 Review of Systems Review of Systems Constitutional: no symptoms reported EENTM: No Symptoms Reported Respiratory: See HPI, SOA With Exertion Cardiovascular: See HPI, Irregular Heart Rate Gastrointestinal: No Symptoms Reported Genitourinary: No Symptoms Reported Musculoskeletal: no symptoms reported Skin: no symptoms reported Psychiatric/Neurological: No Symptoms Reported Endocrine: No Symptoms Reported (ANA HANNA APRN) Past Yrwtxqw-Iroitt-Sblzqc Hx Patient Social History Tobacco Use?: No Use of E-Cig and/or Vaping dev: No Substance use?: No Alcohol Use?: No Pt feels they are or have been: No (ANA HANNA APRN) Immunizations Up To Date Influenza Vaccine Up-to-Date: No; Not Current First/Initial COVID19 Vaccinat: UNKNOWN Second COVID19 Vaccination Miguel: UNKNOWN Third COVID19 Vaccination Date: UNKNOWN (ANA HANNA APRN) Past Medical History Surgeries: Yes Cardiac, Gallbladder Respiratory: No Cardiac: Yes Atrial Fibrillation, Irregular Heartbeat, Palpitations Neurological: No Reproductive Disorders: No Sexually Transmitted Disease: No (ANA HANNA APRN) Physical Exam Vital Signs Vital Signs - First Documented 04/13/22 19:02 Temp 36.7 Pulse 135 Resp 20 B/P (MAP) 137/101 (113) Pulse Ox 97 O2 Delivery Room Air (KATEY,CHRIS K DO) Vital Signs Capillary Refill : Less Than 3 Seconds (ANA HANNA APRN) Height, Weight, BMI Height: 5'10" Weight: 320lbs. oz. 145.252728wj; 46.00 BMI Method:Stated General Appearance: No Apparent Distress, WD/WN HEENT: PERRL/EOMI, TMs Normal, Pharynx Normal Neck: Full Range of Motion, Normal Inspection, Non Tender, Supple Respiratory: Chest Non Tender, Lungs Clear, Normal Breath Sounds Cardiovascular: Irregularly Irregular, Tachycardia Gastrointestinal: Normal Bowel Sounds Neurologic/Psychiatric: Alert, Oriented x3, No Motor/Sensory Deficits, Normal Mood/Affect Skin: Normal Color, Warm/Dry (ANA HANNA APRN) Procedures/Interventions Patient Education: Explained Benefits (ANA HANNA APRN) Progress/Results/Core Measures Results/Orders Lab Results Laboratory Tests Test 04/13/22 19:10 Range/Units White Blood Count 10.2 4.3-11.0 10^3/uL Red Blood Count 4.80 3.80-5.11 10^6/uL Hemoglobin 11.7 11.5-16.0 g/dL Hematocrit 38 35-52 % Mean Corpuscular Volume 79 L 80-99 fL Mean Corpuscular Hemoglobin 24 L 25-34 pg Mean Corpuscular Hemoglobin Concent 31 L 32-36 g/dL Red Cell Distribution Width 15.0 H 10.0-14.5 % Platelet Count 344 130-400 10^3/uL Mean Platelet Volume 9.0 9.0-12.2 fL Immature Granulocyte % (Auto) 0 % Neutrophils (%) (Auto) 64 42-75 % Lymphocytes (%) (Auto) 26 12-44 % Monocytes (%) (Auto) 6 0-12 % Eosinophils (%) (Auto) 2 0-10 % Basophils (%) (Auto) 1 0-10 % Neutrophils # (Auto) 6.6 1.8-7.8 10^3/uL Lymphocytes # (Auto) 2.7 1.0-4.0 10^3/uL Monocytes # (Auto) 0.7 0.0-1.0 10^3/uL Eosinophils # (Auto) 0.2 0.0-0.3 10^3/uL Basophils # (Auto) 0.1 0.0-0.1 10^3/uL Immature Granulocyte # (Auto) 0.0 0.0-0.1 10^3/uL Prothrombin Time 15.4 H 12.2-14.7 SEC INR Comment 1.2 0.8-1.4 Activated Partial Thromboplast Time 34 24-35 SEC Sodium Level 140 135-145 MMOL/L Potassium Level 3.1 L 3.6-5.0 MMOL/L Chloride Level 103 98-107 MMOL/L Carbon Dioxide Level 23 21-32 MMOL/L Anion Gap 14 5-14 MMOL/L Blood Urea Nitrogen 9 7-18 MG/DL Creatinine 0.76 0.60-1.30 MG/DL Estimat Glomerular Filtration Rate 95 BUN/Creatinine Ratio 12 Glucose Level 157 H 70-105 MG/DL Calcium Level 9.2 8.5-10.1 MG/DL Corrected Calcium 9.1 8.5-10.1 MG/DL Magnesium Level 1.6 1.6-2.4 MG/DL Total Bilirubin 0.8 0.1-1.0 MG/DL Aspartate Amino Transf (AST/SGOT) 16 5-34 U/L Alanine Aminotransferase (ALT/SGPT) 14 0-55 U/L Alkaline Phosphatase 89 40-136 U/L Total Creatine Kinase 38 29-168 U/L Creatine Kinase MB 0.5 <6.6 NG/ML Myoglobin 18.9 10.0-92.0 NG/ML Troponin I < 0.028 <0.028 NG/ML B-Type Natriuretic Peptide 218.5 H <100.0 PG/ML Total Protein 7.7 6.4-8.2 GM/DL Albumin 4.1 3.2-4.5 GM/DL TSH Jayess Testing 2.27 0.35-4.94 UIU/ML Serum Test, Qualitative NEGATIVE NEGATIVE (CHRIS DEL TORO DO) My Orders Orders - CHRIS DEL TORO DO Ekg Tracing (04/13/22 18:58) Ed Iv/Invasive Line Start (04/13/22 19:01) O2 (04/13/22 19:) Monitor-Rhythm Ecg Trace Only (04/13/22 19:) Bnp Redwood (04/13/22 19:) Cbc With Automated Diff (04/13/22:) Comprehensive Metabolic Panel (04/13/22:) Creatine Kinase (04/13/22:) Creatine Kinase Mb (04/13/22:) Magnesium (04/13/22:) Protime With Inr (04/13/22:) Partial Thromboplastin Time (04/13/22 19:) Thyroid Analyzer (04/13/22 19:) Myoglobin Serum (04/13/22 19:01) Troponin I [place] (04/13/22 19:) Hcg,Qualitative Serum (04/13/22 19:02) (CHRIS DEL TORO DO) Vital Signs/I&O 04/13/22 04/13/22 04/13/22 04/13/22 19:02 19:23 20:22 21:26 Temp 36.7 36.7 Pulse 135 146 123 79 Resp 20 16 B/P (MAP) 137/101 (113) 129/118 119/102 152/103 Pulse Ox 97 96 O2 Delivery Room Air Room Air (CHRIS DEL TORO DO) Progress Progress Note : Progress Note Patient is nontoxic and well-hydrated on exam. No adventitious lung sounds or increased work of breathing noted. 1+ pitting edema noted to bilateral lower extremities. Patient's heart rate is irregularly irregular and she is ta chycardic. Vital signs are otherwise reassuring. Initial EKG reveals atrial fibrillation with RVR. Initial 10 mg injection of diltiazem was administered. There was some slight decrease in heart rate. Initial laboratory evaluation is reassuring. A second 10 mg dose of diltiazem was administered. Initially this had no effect on heart rate. Sometime thereafter patient spontaneously converted into sinus rhythm with heart rate in the 70s to 80s. She states her symptomology has resolved. She is requesting discharge home. This seems reasonable. Discussed importance of close follow-up with PCP/actuarial mathematician. Strict return precautions for urgent symptomology discussed. Patient verbalized understanding. (ANA HANNA APRN) EKG #1: EKG Time: 19:06 Rate: 140 Rhythm: A Fib/Flutter ECG Impression: Atrial Fibrillation EKG #2: EKG Time: 21:12 Rhythm: Normal Sinus Intervals: Normal (ANA HANNA APRN) Departure Impression Primary Impression: Atrial fibrillation with rapid ventricular response Disposition: 01 HOME, SELF-CARE Condition: Improved Departure-Patient Inst. Decision time for Depature: 21:15 (ANA HANNA APRN) Referrals: BARBRA SHERIFF MD (PCP/Family) Primary Care Physician Patient Instructions: Atrial Fibrillation (DC) ATTENDING PHYSICIAN NOTE: I WAS PHYSICALLY PRESENT ER PHYSICIAN, BUT I WAS NOT INVOLVED IN ANY DECISION MAKING OR ANY CARE OF THIS PATIENT, AND I AM NOT COLLABORATING PHYSICIAN. (CHRIS DEL TORO DO) ANA HANNA APRN Apr 13, 2022 19:09 CHRIS DEL TORO DO Apr 17, 2022 04:21
[2022-04-13 19:19] LABS: BASOPHILS # (AUTO) 0.1 10^3/uL (0.0-0.1); BASOPHILS % (AUTO) 1 % (0-10); EOSINOPHILS # (AUTO) 0.2 10^3/uL (0.0-0.3); EOSINOPHILS % (AUTO) 2 % (0-10); HEMATOCRIT 38 % (35-52); HEMOGLOBIN 11.7 g/dL (11.5-16.0); LYMPHOCYTES # (AUTO) 2.7 10^3/uL (1.0-4.0); LYMPHOCYTES % (AUTO) 26 % (12-44); MEAN CORPUSCULAR HEMOGLOBIN 24 pg (25-34); MEAN CORPUSCULAR HGB CONC 31 g/dL (32-36); MEAN CORPUSCULAR VOLUME 79 fL (80-99); MONOCYTES # (AUTO) 0.7 10^3/uL (0.0-1.0); MONOCYTES % (AUTO) 6 % (0-12); NEUTROPHILS # (AUTO) 6.6 10^3/uL (1.8-7.8); NEUTROPHILS % (AUTO) 64 % (42-75); PLATELET COUNT 344 10^3/uL (130-400); WHITE BLOOD COUNT 10.2 10^3/uL (4.3-11.0)
--- NOTE | 2022-04-13 19:40 | Diagnostic Imaging Report ---
Indication: Flutter. Time of Exam: 7:13 PM Correlation is made with prior chest from 03/26/2022. Heart is enlarged. There is central congestion but no overt failure. No infiltrate or effusion is seen. There is no pneumothorax. IMPRESSION: Cardiomegaly and central congestion. Dictated by: Dictated on workstation # [id number]
[2022-04-13 19:44] LABS: INR 1.2 (0.8-1.4); PROTHROMBIN TIME PATIENT 15.4 SEC (12.2-14.7)
[2022-04-13 19:49] LABS: ALANINE AMINOTRANSFERASE 14 U/L (0-55); ALBUMIN 4.1 GM/DL (3.2-4.5); ALKALINE PHOSPHATASE 89 U/L (40-136); BILIRUBIN,TOTAL 0.8 MG/DL (0.1-1.0); BUN/CREATININE RATIO 12; CALCIUM 9.2 MG/DL (8.5-10.1); CARBON DIOXIDE 23 MMOL/L (21-32); CHLORIDE 103 MMOL/L (98-107); CREATINE KINASE 38 U/L (29-168); CREATININE SERUM 0.76 MG/DL (0.60-1.30); GFR ESTIMATED 95; GLUCOSE 157 MG/DL (70-105); MAGNESIUM 1.6 MG/DL (1.6-2.4); POTASSIUM 3.1 MMOL/L (3.6-5.0); SODIUM 140 MMOL/L (135-145); TOTAL PROTEIN 7.7 GM/DL (6.4-8.2)
[2022-04-13 20:09] LABS: CREATINE KINASE MB 0.5 NG/ML (<6.6); TSH (THYROID ANALYZER) 2.27 UIU/ML (0.35-4.94)
[2022-04-13] MEDS ORDERED: dilTIAZem DRIP PRE-MIX 125 ML IV SCH (21:15)
[2022-04-13 21:26] VITALS: BP 152/103
== END 2022-04-13 21:29 | disposition home or self-care (01) ==
LOC: EDUNIT# 18:55 → ER 18:56
DX: I48.20 Chronic atrial fibrillation, unspecified (principal); Z28.310 Unvaccinated for COVID-19
CPT/HCPCS: 36415; 71045; 80053; 82550; 82553; 83735; 83874; 83880; 84443; 84484; 84703; 85025; 85610; 85730; 93005; 93041

== ENCOUNTER 2022-04-21 03:05 | Observation (INO) | payer OTHER ==
[~2022-04-21] VITALS: Ht 177.2 cm; Wt 150.7 kg
[2022-04-21] MEDS ORDERED: dilTIAZem DRIP PRE-MIX 125 ML IV STA (03:20)
--- NOTE | 2022-04-21 03:20 | ED Cardiac General ---
History of Present Illness General Chief Complaint: Cardiac/General Problems Stated Complaint: AFIB History of Present Illness Date Seen by Provider: Apr 21, 2022 Time Seen by Provider: 03:20 Initial Comments 51-year-old female with PMH of A. fib, is here with complaints of palpitations and tachycardia which woke her up from her sleep, and is associated with chest p ressure. Patient checked her watch and noticed that her heart rate is high in the 150s and 160s and came to the ER. Denies diaphoresis, headache, dizziness, abdominal pain, fever. Patient has been to the ER 5 times since January 2022 for the same reason. Patient's technical account representative is in but she is unable to go there and we do not have transport available to take her there. Allergies and Home Medications Allergies Coded Allergies: sulfamethoxazole (Unverified Allergy, Intermediate, HIVES, 12/08/14) trimethoprim (Unverified Allergy, Intermediate, HIVES, 12/08/14) amoxicillin (Unverified Allergy, Unknown, 12/08/14) doxycycline (Unverified Allergy, Unknown, 12/08/14) Patient Home Medication List Home Medication List Reviewed: Yes Clindamycin Hcl (Cleocin Hcl) 300 Mg Capsule, 1 EACH PO QID Prescribed by: MARGARITO TRAN on 12/08/142024 Review of Systems Review of Systems Constitutional: no symptoms reported EENTM: No Symptoms Reported Respiratory: No Symptoms Reported Cardiovascular: Irregular Heart Rate, Palpitations Gastrointestinal: No Symptoms Reported Genitourinary: No Symptoms Reported Musculoskeletal: no symptoms reported Skin: no symptoms reported Psychiatric/Neurological: No Symptoms Reported Endocrine: No Symptoms Reported Hematologic/Lymphatic: No Symptoms Reported Past Ogvpbmp-Sxeddk-Fqnbyd Hx Immunizations Up To Date First/Initial COVID19 Vaccinat: UNKNOWN Second COVID19 Vaccination Miguel: UNKNOWN Third COVID19 Vaccination Date: UNKNOWN Past Medical History Surgeries: Yes Cardiac, Gallbladder Respiratory: No Cardiac: Yes Atrial Fibrillation, Irregular Heartbeat, Palpitations Neurological: No Reproductive Disorders: No Sexually Transmitted Disease: No Physical Exam Vital Signs Vital Signs - First Documented 04/21/22 03:12 Temp 36.4 Pulse 145 Resp 22 B/P (MAP) 142/114 (123) Pulse Ox 94 O2 Delivery Room Air Capillary Refill : Height, Weight, BMI Height: 5'10" Weight: 320lbs. oz. 145.237476qh; 46.00 BMI Method:Stated General Appearance: Anxious, Mild Distress HEENT: PERRL/EOMI Neck: Full Range of Motion Respiratory: Chest Non Tender, Lungs Clear, Normal Breath Sounds, No Accessory Muscle Use, No Respiratory Distress Cardiovascular: Normal Peripheral Pulses, Irregularly Irregular, Tachycardia Gastrointestinal: Non Tender, Soft Extremity: Normal Range of Motion Neurologic/Psychiatric: Alert, Oriented x3, No Motor/Sensory Deficits Skin: Normal Color Procedures/Interventions Patient Education: Explained Benefits Progress/Results/Core Measures Results/Orders Lab Results Laboratory Tests Test 04/21/22 03:25 04/21/22 03:55 Range/Units White Blood Count 11.8 H 4.3-11.0 10^3/uL Red Blood Count 4.74 3.80-5.11 10^6/uL Hemoglobin 11.4 L 11.5-16.0 g/dL Hematocrit 38 35-52 % Mean Corpuscular Volume 80 80-99 fL Mean Corpuscular Hemoglobin 24 L 25-34 pg Mean Corpuscular Hemoglobin Concent 30 L 32-36 g/dL Red Cell Distribution Width 15.0 H 10.0-14.5 % Platelet Count 336 130-400 10^3/uL Mean Platelet Volume 8.8 L 9.0-12.2 fL Immature Granulocyte % (Auto) 0 % Neutrophils (%) (Auto) 79 H 42-75 % Lymphocytes (%) (Auto) 13 12-44 % Monocytes (%) (Auto) 5 0-12 % Eosinophils (%) (Auto) 3 0-10 % Basophils (%) (Auto) 1 0-10 % Neutrophils # (Auto) 9.3 H 1.8-7.8 10^3/uL Lymphocytes # (Auto) 1.5 1.0-4.0 10^3/uL Monocytes # (Auto) 0.6 0.0-1.0 10^3/uL Eosinophils # (Auto) 0.3 0.0-0.3 10^3/uL Basophils # (Auto) 0.1 0.0-0.1 10^3/uL Immature Granulocyte # (Auto) 0.0 0.0-0.1 10^3/uL Sodium Level 143 135-145 MMOL/L Potassium Level 3.4 L 3.6-5.0 MMOL/L Chloride Level 104 98-107 MMOL/L Carbon Dioxide Level 22 21-32 MMOL/L Anion Gap 17 H 5-14 MMOL/L Blood Urea Nitrogen 6 L 7-18 MG/DL Creatinine 0.76 0.60-1.30 MG/DL Estimat Glomerular Filtration Rate 95 BUN/Creatinine Ratio 8 Glucose Level 144 H 70-105 MG/DL Calcium Level 9.1 8.5-10.1 MG/DL Corrected Calcium 9.0 8.5-10.1 MG/DL Magnesium Level 1.5 L 1.6-2.4 MG/DL Total Bilirubin 1.3 H 0.1-1.0 MG/DL Aspartate Amino Transf (AST/SGOT) 19 5-34 U/L Alanine Aminotransferase (ALT/SGPT) 22 0-55 U/L Alkaline Phosphatase 85 40-136 U/L Troponin I < 0.028 <0.028 NG/ML Total Protein 7.7 6.4-8.2 GM/DL Albumin 4.1 3.2-4.5 GM/DL Urine Color YELLOW Urine Clarity CLEAR Urine pH 6.5 5-9 Urine Specific [place] 1.010 L 1.016-1.022 Urine Protein TRACE H NEGATIVE Urine Glucose (UA) NEGATIVE NEGATIVE Urine Ketones NEGATIVE NEGATIVE Urine Nitrite NEGATIVE NEGATIVE Urine Bilirubin NEGATIVE NEGATIVE Urine Urobilinogen 0.2 < = 1.0 MG/DL Urine Leukocyte Esterase NEGATIVE NEGATIVE Urine RBC (Auto) NEGATIVE NEGATIVE Urine RBC NONE /HPF Urine WBC NONE /HPF Urine Crystals NONE /LPF Urine Bacteria NEGATIVE /HPF Urine Casts NONE /LPF Urine Mucus NEGATIVE /LPF Urine Culture Indicated NO Urine Opiates Screen NEGATIVE NEGATIVE Urine Oxycodone Screen NEGATIVE NEGATIVE Urine Methadone Screen NEGATIVE NEGATIVE Urine Propoxyphene Screen NEGATIVE NEGATIVE Urine Barbiturates Screen NEGATIVE NEGATIVE Ur Tricyclic Antidepressants Screen NEGATIVE NEGATIVE Urine Phencyclidine Screen NEGATIVE NEGATIVE Urine Amphetamines Screen NEGATIVE NEGATIVE Urine Methamphetamines Screen NEGATIVE NEGATIVE Urine Benzodiazepines Screen NEGATIVE NEGATIVE Urine Cocaine Screen NEGATIVE NEGATIVE Urine Cannabinoids Screen POSITIVE H NEGATIVE My Orders Orders - KAHLIL MCPHERSON MD Ekg Tracing (04/21/22 03:09) Continuous Ekg Monitoring (04/21/22 03:09) Cbc With Automated Diff (04/21/22 03:20) Comprehensive Metabolic Panel (04/21/22 03:20) Drug Screen Stat (Urine) (04/21/22 03:20) Magnesium (04/21/22 03:20) Ua Culture If Indicated (04/21/22 03:20) Troponin I Maryann (04/21/22 03:20) Diltiazem Injection (Cardizem Injection) (04/21/22 03:30) Diltiazem Drip Pre-Mix (Cardizem Drip Pr (04/21/22 03:20) Medications Given in ED Current Medications Medications Dose Ordered Sig/Tanisha Route Start Time Stop Time Status Last Admin Dose Admin Diltiazem HCl 10 mg ONCE ONCE IVP 04/21/22 03:30 04/21/22 03:31 DC 04/21/22 03:33 10 MG Vital Signs/I&O 04/21/22 04/21/22 04/21/22 03:12 03:33 03:36 Temp 36.4 Pulse 145 142 134 Resp 22 B/P (MAP) 142/114 (123) 142/114 Pulse Ox 94 O2 Delivery Room Air Progress Progress Note : Progress Note .1. A-FIB in RVR: - EKG - Troponin undetected - labs unremarkable - Cardizem bolus and drip started in the ER -This is patient's fifth visit to the ER since January 2022 for the same complaints. In the past she has been transferred to since her technical account representative is there. However tonight there is no transfer to take the patient due to unavailability of ambulances and also due to weather conditions. Will admit patient here, and patient agrees to plan. Discussed with hospitalist and accepted for admission for cardiology consult. Initial ECG Impression Date: Apr 21, 2022 Initial ECG Impression Time: 03:15 Initial ECG Rate: 140 Initial ECG Rhythm: A Fib/Flutter Initial ECG Impression: Atrial Fibrillation w/RVR Departure Communication (Admissions) Time/Spoke to Admitting Phy: 05:[address] Brown, and will admit to observation ICU since patient is on a Cardizem drip Impression Primary Impression: Atrial fibrillation with RVR Disposition: 30 STILL A PATIENT Condition: Improved Admissions Decision to Admit Reason: Admit from ER (General) Decision to Admit/Date: Apr 21, 2022 Time/Decision to Admit Time: 05:30 Departure-Patient Inst. Referrals: BARBRA SHERIFF MD (PCP/Family) Primary Care Physician KAHLIL MCPHERSON MD Apr 21, 2022 03:20
[2022-04-21 03:42] LABS: BASOPHILS # (AUTO) 0.1 10^3/uL (0.0-0.1); BASOPHILS % (AUTO) 1 % (0-10); EOSINOPHILS # (AUTO) 0.3 10^3/uL (0.0-0.3); EOSINOPHILS % (AUTO) 3 % (0-10); HEMATOCRIT 38 % (35-52); HEMOGLOBIN 11.4 g/dL (11.5-16.0); LYMPHOCYTES # (AUTO) 1.5 10^3/uL (1.0-4.0); LYMPHOCYTES % (AUTO) 13 % (12-44); MEAN CORPUSCULAR HEMOGLOBIN 24 pg (25-34); MEAN CORPUSCULAR HGB CONC 30 g/dL (32-36); MEAN CORPUSCULAR VOLUME 80 fL (80-99); MEAN PLATELET VOLUME 8.8 fL (9.0-12.2); MONOCYTES # (AUTO) 0.6 10^3/uL (0.0-1.0); MONOCYTES % (AUTO) 5 % (0-12); NEUTROPHILS # (AUTO) 9.3 10^3/uL (1.8-7.8); NEUTROPHILS % (AUTO) 79 % (42-75); PLATELET COUNT 336 10^3/uL (130-400); WHITE BLOOD COUNT 11.8 10^3/uL (4.3-11.0)
[2022-04-21 04:01] LABS: ALANINE AMINOTRANSFERASE 22 U/L (0-55); ALBUMIN 4.1 GM/DL (3.2-4.5); ALKALINE PHOSPHATASE 85 U/L (40-136); BILIRUBIN,TOTAL 1.3 MG/DL (0.1-1.0); BUN/CREATININE RATIO 8; CALCIUM 9.1 MG/DL (8.5-10.1); CARBON DIOXIDE 22 MMOL/L (21-32); CHLORIDE 104 MMOL/L (98-107); CREATININE SERUM 0.76 MG/DL (0.60-1.30); GFR ESTIMATED 95; GLUCOSE 144 MG/DL (70-105); MAGNESIUM 1.5 MG/DL (1.6-2.4); POTASSIUM 3.4 MMOL/L (3.6-5.0); SODIUM 143 MMOL/L (135-145); TOTAL PROTEIN 7.7 GM/DL (6.4-8.2)
[2022-04-21 04:06] LABS: BILIRUBIN,URINE NEGATIVE (NEGATIVE); CLARITY,URINE CLEAR; COLOR,URINE YELLOW; GLUCOSE, URINE (UA) NEGATIVE (NEGATIVE); KETONES,URINE NEGATIVE (NEGATIVE); LEUKOCYTE ESTERASE ,URINE NEGATIVE (NEGATIVE); NITRITE,URINE NEGATIVE (NEGATIVE); PH,URINE 6.5 (5-9); PROTEIN,URINE TRACE (NEGATIVE)
[2022-04-21 04:30] LABS: BACTERIA,URINE NEGATIVE /HPF
[2022-04-21 04:46] LABS: AMPHETAMINE SCREEN, URINE NEGATIVE (NEGATIVE); BARBITURATE SCREEN URINE NEGATIVE (NEGATIVE); BENZODIAZEPINES SCREEN URINE NEGATIVE (NEGATIVE); CANNABINOID SCREEN, URINE POSITIVE (NEGATIVE); COCAINE SCREEN URINE NEGATIVE (NEGATIVE); METHADONE STAT NEGATIVE (NEGATIVE); OPIATE SCREEN URINE NEGATIVE (NEGATIVE); OXYCODONE STAT NEGATIVE (NEGATIVE); PROPOXYPHENE STAT NEGATIVE (NEGATIVE); TRICYCLIC ANTIDEPRESSANTS SCRE NEGATIVE (NEGATIVE)
[2022-04-21] MEDS ORDERED: ACETAMINOPHEN 325 MG TABLET PO ONE (06:00)
[2022-04-21] MEDS ORDERED: NS IV 500 ML 500 ML IV PRN (07:45)
--- NOTE | 2022-04-21 08:21 | Consultation-Cardiology ---
HPI-Cardiology Cardiology Consultation: Date of Consultation 04/21/22 Time Seen by a Provider: 08:10 Date of Admission 04-20-22 Attending Physician Joseph Kwok MD Admitting Physician Admitting Physician: Christiano Brown MD Attending Physician: Christiano Brown MD Consulting Physician Lisset Pascual MD HPI: Chief Complaint: A-fib with RVR Ms. Griggs is a 51 yr old female admitted to ICU 7 with a-fib with RVR. She was bolused and then started on a Cardizem gtt. She subsequently converted and has remained in SR since then. She reports she woke up yesterday morning and was in a-fib. The palpitations persisted and she then came to the ED. She sees EP services at , Dr. Sánchez. She did see him on Apr 06 d/t having at least 6 episodes of PAF requiring ED visits since January. She reports she is to be admitted to [facility] on May 10 for a 3 day stay in order to have her Sotalol increased to 120mg BID. She denies any c/o CP. She reports chronic bilat ankle edema which has been somewhat worse recently. She states she has increased her Lasix to 40 daily at the instruction of Dr. Sánchez. She reports she has had some nausea. No c/o diarrhea or fever. She states she does have sleep apnea, but has not been using her CPAP d/t not being able to get new tubing. She states she has been advised to have sleep studies again, but this is not scheduled as of yet. Review of Systems-Cardiology Review of Systems Constitutional: No chills, No fever, No malaise Eyes: No vision change Ears/Nose/Throat: No epistaxis; nasal drainage; No recent hearing loss Respiratory: As described under HPI Cardiovascular: As described under HPI Gastrointestinal: As described under HPI Genitourinary: No dysuria, No hematuria Musculoskeletal: no symptoms reported Skin: No rash on exposed areas, No ulcerations on exposed areas Psychiatric/Neurological: No anxiety, No depression, No seizure, No focal weakness, No syncope Hematologic: No bleeding abnormalities XKG-Yfbcoj-Taemln Hx Patient Social History Former smoker/When Quit: Dec 06, 1995 Have you traveled recently?: No Alcohol Use?: No Pt feels they are or have been: No Past Medical History PMH As described under Assessment. Family Medical History Family Medical History: She denies any family h/o CAD. Allergies and Home Medications Allergies Coded Allergies: Penicillins (Verified Allergy, Severe, 04/21/22) HIVES OR SWELLING sulfamethoxazole (Unverified Allergy, Intermediate, HIVES, 12/08/14) trimethoprim (Unverified Allergy, Intermediate, HIVES, 12/08/14) amoxicillin (Unverified Allergy, Unknown, 12/08/14) doxycycline (Unverified Allergy, Unknown, 12/08/14) amiodarone (Verified Adverse Reaction, Severe, 04/21/22) PT STATES SHE FEELS LIKE SHE IS BEING ELECTROCUTED IN THE SHOULDERS & HIPS WHEN TAKING THIS MEDICATION. Patient Home Medication List Acyclovir (Acyclovir) 400 Mg Tablet, 400 MG PO DAILY, (Reported) Entered as Reported by: JO MUNOZ on 04/21/221299 Last Action: Reviewed Apixaban (Eliquis) 5 Mg Tablet, 5 MG PO BID, (Reported) Entered as Reported by: JO MUNOZ on 04/21/221299 Last Action: Reviewed Aspirin (Aspirin EC) 81 Mg Tablet.dr, 81 MG PO DAILY, (Reported) Entered as Reported by: JO MUNOZ on 04/21/221299 Last Action: Reviewed Biotin (Biotin) 2,500 Mcg Capsule, 10,000 MCG PO DAILY, (Reported) Entered as Reported by: JO MUNOZ on 04/21/221299 Last Action: Reviewed Cetirizine HCl (Cetirizine HCl) 10 Mg Tablet, 10 MG PO DAILY, (Reported) Entered as Reported by: JO MUNOZ on 04/21/221299 Last Action: Reviewed Furosemide (Furosemide) 20 Mg Tablet, 20 MG PO DAILY, (Reported) Entered as Reported by: JO MUNOZ on 04/21/221299 Last Action: Reviewed Glimepiride (Glimepiride) 2 Mg Tablet, 2 MG PO BID, (Reported) Entered as Reported by: JO MUNOZ on 04/21/221299 Last Action: Reviewed Glucosa Ruiz 2Kcl/Chondroitin Ruiz (Glucosamine & Chondroitin Cap) 500 Mg-400 Mg Capsule, 2 EACH PO DAILY, (Reported) Entered as Reported by: JO MUNOZ on 04/21/221299 Last Action: Reviewed L.acidoph & Paracasei,B.lactis (Probiotic) 10 Billion Cell Capsule, 1 EACH PO DAILY, (Reported) Entered as Reported by: JO MUNOZ on 04/21/221299 Last Action: Reviewed Lisinopril (Lisinopril) 5 Mg Tablet, 5 MG PO HS, (Reported) Entered as Reported by: JO MUNOZ on 04/21/221299 Last Action: Reviewed Magnesium Oxide (Magnesium Oxide) 400 Mg (241.3 Mg Magnesium) Tablet, 400 MG PO DAILY, (Reported) Entered as Reported by: JO MUNOZ on 04/21/221299 Last Action: Reviewed Metformin HCl (Metformin HCl) 1,000 Mg Tablet, 1,000 MG PO BID, (Reported) Entered as Reported by: JO MUNOZ on 04/21/221299 Last Action: Reviewed Metoprolol Succinate (Metoprolol Succinate) 25 Mg Tab.er.24h, 12.5 MG PO DAILY, (Reported) Entered as Reported by: JO MUNOZ on 04/21/221299 Last Action: Reviewed Multivitamin (Multivitamin) 1 Each Tablet, 1 EACH PO DAILY, (Reported) Entered as Reported by: JO MUNOZ on 04/21/221299 Last Action: Reviewed Omeprazole (Omeprazole) 20 Mg Tablet.dr, 20 MG PO DAILY, (Reported) Entered as Reported by: JO MUNOZ on 04/21/22 1334 Last Action: Reviewed Simvastatin (Simvastatin) 20 Mg Tablet, 20 MG PO HS, (Reported) Entered as Reported by: JO MUNOZ on 04/21/221299 Last Action: Reviewed Sotalol HCl (Sotalol) 80 Mg Tablet, 80 MG PO BID, (Reported) Entered as Reported by: JO MUNOZ on 04/21/22 1302 Last Action: Reviewed Spironolactone (Spironolactone) 25 Mg Tablet, 25 MG PO DAILY, (Reported) Entered as Reported by: JO MUNOZ on 04/21/221299 Last Action: Reviewed Discontinued Medications Clindamycin Hcl (Cleocin Hcl) 300 Mg Capsule, 1 EACH PO QID Discontinued Reason: No Longer Taking Prescribed by: MARGARITO TRAN on 12/08/142024 Last Action: Discontinued Sotalol HCl (Betapace AF) 80 Mg Tablet, 80 MG PO BID, (Reported) Discontinued Reason: Duplicate Order Entered as Reported by: JO MUNOZ on 04/21/22 1300 Last Action: Discontinued Physical Exam-Cardiology Physical Exam Vital Signs/I&O 04/21/22 04/21/22 04/21/22 04/21/22 19:36 19:43 19:50 20:00 Temp 37.1 36.8 Pulse 73 66 65 Resp 12 19 B/P (MAP) 145/77 (99) 128/77 (94) 130/70 (90) Pulse Ox 95 95 96 O2 Delivery Nasal Cannula Nasal Cannula Nasal Cannula Nasal Cannula O2 Flow Rate 2.00 2.00 2.00 2.00 2.00 04/21/22 04/21/22 04/21/22 04/21/22 21:00 22:00 22:17 23:00 Pulse 70 63 64 63 Resp 21 B/P (MAP) 118/62 (80) 127/64 (85) 105/66 (79) Pulse Ox 96 96 91 O2 Delivery Nasal Cannula Nasal Cannula Nasal Cannula O2 Flow Rate 2.00 2.00 2.00 04/21/22 04/22/22 04/22/22 04/22/22 23:15 00:00 00:10 01:00 Temp 36.9 Pulse 60 70 Resp 20 B/P (MAP) 104/56 (72) Pulse Ox 95 90 O2 Delivery Nasal Cannula Nasal Cannula O2 Flow Rate 2.00 2.00 04/22/22 04/22/22 04/22/22 04/22/22 01:00 02:00 03:00 03:43 Temp 36.9 Pulse 63 63 63 Resp 20 B/P (MAP) 133/77 (95) 115/63 (80) 125/68 (87) Pulse Ox 92 93 94 O2 Delivery Nasal Cannula Nasal Cannula Nasal Cannula O2 Flow Rate 2.00 2.00 2.00 04/22/22 04/22/22 04/22/22 04/22/22 03:50 04:00 05:00 06:00 Pulse 63 64 71 Resp 27 B/P (MAP) 125/70 (88) 131/74 (93) 132/75 (94) Pulse Ox 94 92 94 97 O2 Delivery Nasal Cannula Nasal Cannula Nasal Cannula Nasal Cannula O2 Flow Rate 2.00 2.00 2.00 2.00 04/22/22 00:00 Intake Total 2820 ml Balance 2820 ml Capillary Refill : Less Than 3 Seconds Constitutional: AAO x 3, well-developed, well-nourished HEENT: PERRL, hearing is well preserved, oral hygience is good Neck: No carotid bruit; carotid pulses are 2 + bilaterally Respiratory: No accessory muscle use, No respiratory distress; chest expansion is symmetric, chest is bilaterally symmetric, lungs clear to auscultation Cardiovascular: regular rate-rhythm; No JVD; S1 and S2 Gastrointestinal: No tender; soft, round, audible bowel sounds Extremities: no lower extremity edema bilateral Neurologic/Psychiatric: grossly intact (moves all extremities) Skin: No rash on exposed areas, No ulcerations on exposed areas Data Review Labs Laboratory Tests 04/21/22 12:59: Influenza Type A (RT-PCR) Not Detected, Influenza Type B (RT-PCR) Not Detected, SARS-CoV-2 RNA (RT-PCR) Not Detected 04/22/22 03:50: White Blood Count 9.8, Red Blood Count 4.24, Hemoglobin 10.1L, Hematocrit 34L, Mean Corpuscular Volume 80, Mean Corpuscular Hemoglobin 24L, Mean Corpuscular Hemoglobin Concent 30L, Red Cell Distribution Width 15.2H, Platelet Count 286, M heaven Platelet Volume 9.0, Immature Granulocyte % (Auto) 1, Neutrophils (%) (Auto) 75, Lymphocytes (%) (Auto) 16, Monocytes (%) (Auto) 8, Eosinophils (%) (Auto) 1, Basophils (%) (Auto) 1, Neutrophils # (Auto) 7.3, Lymphocytes # (Auto) 1.5, Monocytes # (Auto) 0.7, Eosinophils # (Auto) 0.1, Basophils # (Auto) 0.1, Immature Granulocyte # (Auto) 0.1, Sodium Level 139, Potassium Level 3.7, Chloride Level 104, Carbon Dioxide Level 24, Anion Gap 11, Blood Urea Nitrogen 8, Creatinine 0.66, Estimat Glomerular Filtration Rate 106, BUN/Creatinine Ratio 12, Glucose Level 130H, Calcium Level 9.0, Magnesium Level 2.0 Radiology NAME: KYLAH GRIGGSErasmo HARDIN REC#: [id number] PT STATUS: REG ER : 1970 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 Time of Exam: 7:13 PM Correlation is made with prior chest from 03/26/2022. Heart is enlarged. There is central congestion but no overt failure. No infiltrate or effusion is seen. There is no pneumothorax. IMPRESSION: Cardiomegaly and central congestion. Dictated by: Dictated on workstation # [id number] Dict: 04/13/221931 Trans: 04/13/221956 [facility] [id number] Interpreted by: MARGA MELENDREZ MD Electronically signed by: MARGA MELENDREZ MD 04/13/221956 ECG Impression ECG Initial ECG Impression: Atrial Fibrillation w/RVR A/P-Cardiology Assessment/Admission Diagnosis PAF - A-fib with RVR - converted to SR with Cardizem bolus and gtt - maintaining SR - h/o a-fib ablation x [address] Sánchez - OAC with Eliquis - has not missed any doses H/O ASD repair by Dr. Mcgrath in 2016 CRISTINA - not compliant with CPAP tx DM H/O CHF - reports prior to ASD repair in 2016 her LVEF was 10% - reports she had an echo in September [address] Mcgrath and was told it was "good" Discussion and Recomendations PAF - a-fib with RVR - converted with Cardizem bolus and gtt - maintaining SR - resume OAC with Eliquis for stroke prophylaxis - start oral Cardizem - resume home medication of Sotalol - stop Toprol to reduce risk of bradycardia on 3 agents Echocardiogram today Advise compliance with sleep apnea re-eval so that CPAP tx can be resumed Replace electrolytes Further recs will be based on her hospital course We would like to thank medical services for this consult Clinical Quality Measures AMI/AHF: ASA po Prior to arrival: HENRI Goode Apr 21, 2022 08:21
[2022-04-21] MEDS ORDERED: KCL 20 MEQ TAB (K-DUR) PO NR ×3 (08:30→12:00)
--- NOTE | 2022-04-21 08:33 | History & Physical-Hospitalist ---
History of Present Illness HPI/Chief Complaint Patient is a 51-year-old female with past medical history of atrial fibrillation status post multiple ablations who presented to the emergency department due to chest pressure and palpitations. She states she was first diagnosed with atrial fibrillation roughly 5 years ago and underwent atrial septal defect repair and ablation. She had been on sotalol and metoprolol since that time and her been doing well until January of this year. Since that time she has had multiple visits to the ER and 1 admission due to atrial fibrillation with rapid ventricular rate. She had 1 admission in [facility] where she was cardioverted. She has had multiple ER visits here as well. Last night her symptoms woke her from sleep and her watch showed that she was quite tachycardic so she checked her blood pressure. Her blood pressure cuff was able to identify that she was in atrial fibrillation with a rate of 167. She was admitted to the ICU on a Cardizem drip. She has since converted to sinus rhythm and is doing well. Source: patient Date Seen 04/21/22 Time Seen by a Provider: 07:45 Attending Physician Joseph Kwok MD PCP Admitting Physician: Christiano Brown MD Attending Physician: Christiano Brown MD Referring Physician Date of Admission Apr 21, 2022 at 06:00 Home Medications & Allergies Home Medications Reviewed patient Home Medication Reconciliation performed by pharmacy medication reconciliations mechanical facilities technician and/or nursing. Patients Allergies have been reviewed. Allergies Allergies Coded Allergies sulfamethoxazole (Unverified Allergy, Intermediate, HIVES, 12/08/14) trimethoprim (Unverified Allergy, Intermediate, HIVES, 12/08/14) amoxicillin (Unverified Allergy, Unknown, 12/08/14) doxycycline (Unverified Allergy, Unknown, 12/08/14) Past Zksmwqu-Zuxldf-Sdewof Hx Patient Social History Tobacco Use?: No Use of E-Cig and/or Vaping dev: No Substance use?: No Alcohol Use?: No Pt feels they are or have been: No Immunizations Up To Date First/Initial COVID19 Vaccinat: UNKNOWN Second COVID19 Vaccination Miguel: UNKNOWN Tetanus Booster (TDap): Less Than 5 Years Current Status Advance Directives: No Primary Language: [place] Preferred Spoken Language: [place] Implanted or Applied Medical D: None Past Medical History Surgeries: Cardiac, Gallbladder Atrial Fibrillation, Irregular Heartbeat, Palpitations Sexually Transmitted Disease: No Family Medical History Reviewed Nursing Family Hx No Pertinent Family Hx Review of Systems Constitutional: No chills, No fever EENTM: no symptoms reported Respiratory: No cough, No dyspnea on exertion, No short of breath Cardiovascular: chest pain; No edema; Hx of Intervention, palpitations Gastrointestinal: no symptoms reported Genitourinary: no symptoms reported Musculoskeletal: no symptoms reported Skin: no symptoms reported Psychiatric/Neurological: No Symptoms Reported Physical Exam Physical Exam Vital Signs Vital Signs - First Documented 04/21/22 04/21/22 03:12 08:48 Temp 36.4 Pulse 145 Resp 22 B/P (MAP) 142/114 (123) Pulse Ox 94 O2 Delivery Room Air FiO2 21 Capillary Refill : Less Than 3 Seconds Height, Weight, BMI Height: 5'10" Weight: 320lbs. oz. 145.012419mf; 46.00 BMI Method:Stated General Appearance: No Apparent Distress, WD/WN HEENT: PERRL/EOMI, Moist Mucous Membranes; No Scleral Icterus (L), No Scleral Icterus (R) Neck: Normal Inspection, Supple Respiratory: Lungs Clear, No Accessory Muscle Use, No Respiratory Distress Cardiovascular: Regular Rate, Rhythm, No JVD, No Murmur Gastrointestinal: Normal Bowel Sounds, Non Tender, Soft Extremity: Normal Capillary Refill, No Calf Tenderness, No Pedal Edema Neurologic/Psychiatric: Alert, Oriented x3, Normal Mood/Affect Skin: Normal Color, Warm/Dry Results Results/Procedures Labs Laboratory Tests 04/21/22 03:25 Patient resulted labs reviewed. Assessment/Plan Admission Diagnosis A-fib with RVR Admission Status: Observation Assessment and Plan A-fib with RVR repaired ASD CHF HTN converted to sinus rhythm on cardizem gtt Cardiology consulted, appreciate recs Continue Eliquis Defer rate controlling medication to Dr Pascual Follows with [facility] for EP Cardiology normally Has scheduled admission for sotalol increase on 05/10 DM fasting blood sugar 144 Continue home meds as appropriate DVT ppx: Already on Eliquis Diagnosis/Problems Diagnosis/Problems (1) Essential (primary) hypertension (2) HLD (hyperlipidemia) (3) Non-insulin dependent type 2 diabetes mellitus (4) Atrial fibrillation with rapid ventricular response Status: Acute Clinical Quality Measures AMI/AHF: ASA po Prior to arrival: ZOYA Alvarado MD Apr 21, 2022 8:33 am
--- NOTE | 2022-04-21 08:35 | Tele-ICU Progress Note ---
Subjective Date Seen by a Provider: Apr 21, 2022 Subjective/Events-last exam This virtual visit was conducted using real time audio/video. Thank you for asking us to see this patient for afib/RVR. Also Cannabinoids +. Recent events: Converted to NSR. Cardizem D/Cd. PMH: afib ROS: as in HPI. PE: Pale, comfortable. VSS. O2 sat 93% on RA HEENT: No obvious masses, adenopathy or JVD. Chest: clear to auscultation. CV: RRR S1 S2 No murmur or added sounds. Abd: Non-tender. Bowel sounds Y. : Unremarkable. [place] n. SLEEP MEDICINE PHYSICIAN/psychiatric: Grossly intact. No obvious focal findings. Extremities: No edema. Capillary refill < 3 seconds. Skin: unremarkable. Results: Elevated WCC 11.8. Decreased Hb 11.4, K 3.4. CXR: Hyperinflated. Available chart/ vitals / labs / images reviewed. Video assessment done using teleICU camera, rest of exam as per RN. A/P: Critical Care: critically ill patient. Cont. Sotalol. Replace K. Discussed with RN CJ. Asked RN to reach out to eICU if any questions or concerns later. Time spent with patient/coordination of care with other health professionals (mins): 15 Sepsis Event Evaluation Height, Weight, BMI Height: 5'10" Weight: 320lbs. oz. 145.365080qm; 46.00 BMI Method:Stated Exam Exam Patient acknowledged, consented, and participated in this virtual visit which was conducted using real time audio/video Vital Signs Date Time Temp Pulse Resp B/P (MAP) Pulse Ox O2 Delivery O2 Flow Rate FiO2 04/21/22 06:35 71 20 141/71 96 Room Air 04/21/22 03:36 134 04/21/22 03:33 142 142/114 04/21/22 03:12 36.4 145 22 142/114 (123) 94 Room Air Height & Weight Height: 5'10" Weight: 320lbs. oz. 145.053628bp; 46.00 BMI Method:Stated General Appearance: Anxious, Mild Distress HEENT: PERRL/EOMI Neck: Full Range of Motion Respiratory: Chest Non Tender, Lungs Clear, Normal Breath Sounds, No Accessory Muscle Use, No Respiratory Distress Cardiovascular: Normal Peripheral Pulses, Irregularly Irregular, Tachycardia Capillary Refill: Less Than 3 Seconds Extremity: Normal Range of Motion Neurologic/Psychiatric: Alert, Oriented x3, No Motor/Sensory Deficits Skin: Normal Color Results Lab Laboratory Tests 04/21/22 03:25 Assessment/Plan Assessment/Plan See free text. Critical Care: Critically Ill Patient MAHI BERMAN MD Apr 21, 2022 08:35
[2022-04-21 08:48] VITALS: BP 141/71
[2022-04-21] MEDS: APIXABAN 5 MG (ELIQUIS) TABLET PO SCH ×2 (08:51→21:09)
[2022-04-21] MEDS ORDERED: RT-ALBUTEROL SULF 2.5 MG/3 ML PRE-MIX VIAL INH PRN (09:00)
[2022-04-21] MEDS ORDERED: SOTALOL 80 MG (BETAPACE) TAB PO SCH (09:00)
[2022-04-21] MEDS: FUROSEMIDE 20 MG (LASIX) TAB PO SCH (10:01)
[2022-04-21] MEDS: SPIRONOLACTONE 25 MG (ALDACTONE) TAB PO SCH (10:01)
[2022-04-21] MEDS: MAGNESIUM 1 GM/100 ML IVPB 100 ML IV SCH ×2 (10:01→10:02)
[2022-04-21] MEDS: MAGNESIUM OXIDE (MAG-OX)400 MG TAB PO SCH (10:01)
[2022-04-21] MEDS: lisINopril 5 MG (PRINIVIL) TABLET PO SCH (10:01)
[2022-04-21] MEDS ORDERED: SENNA W/DOCUSATE (SENOKOT S) TABLET PO PRN (11:45)
[2022-04-21] MEDS ORDERED: ONDANSETRON 4 MG/2 ML (SDV) Z0FRAN IVP PRN (12:00)
[2022-04-21] MEDS ORDERED: MGX400T PO (13:00)
[2022-04-21] MEDS ORDERED: MTP25TSR PO (13:00)
[2022-04-21] MEDS ORDERED: GLUC1CAP37 PO (13:00)
[2022-04-21] MEDS ORDERED: ASPI-1238 PO (13:00)
[2022-04-21] MEDS ORDERED: BIOT25007 PO (13:00)
[2022-04-21] MEDS ORDERED: SIMV20TA26 PO (13:00)
[2022-04-21] MEDS ORDERED: MULT-1136 PO (13:00)
[2022-04-21] MEDS ORDERED: L.AC1CAP6 PO (13:00)
[2022-04-21] MEDS ORDERED: OMEP-401 PO (13:00)
[2022-04-21] MEDS ORDERED: FURO20TA4 PO (13:00)
[2022-04-21] MEDS ORDERED: LISI5TAB20 PO (13:00)
[2022-04-21] MEDS ORDERED: GLIM2TAB4 PO (13:00)
[2022-04-21] MEDS ORDERED: CETI10TA17 PO (13:00)
[2022-04-21] MEDS ORDERED: APIX5TAB PO (13:00)
[2022-04-21] MEDS ORDERED: SPIR25TA5 PO (13:00)
[2022-04-21] MEDS ORDERED: ACYC400T21 PO (13:00)
[2022-04-21] MEDS ORDERED: METF-399 PO (13:00)
[2022-04-21] MEDS ORDERED: SOTA80TA23 PO (13:00)
[2022-04-21] MEDS ORDERED: STL80T PO (13:02)
[2022-04-21] MEDS ORDERED: OMEP20TA56 PO (13:34)
[2022-04-21] MEDS: ACETAMINOPHEN 500 MG TAB (TYLENOL) PO PRN (17:07)
--- NOTE | 2022-04-21 17:27 | Consultation-Cardiology ---
HPI-Cardiology Cardiology Consultation: Date of Consultation 04/21/22 Time Seen by a Provider: 13:20 Date of Admission Attending Physician Joseph Kwok MD Admitting Physician Admitting Physician: Christiano Brown MD Attending Physician: Christiano Brown MD Consulting Physician MICHELLE HATHAWAY MD, MA, FACP, FAC, [facility], CCDS HPI: Chief Complaint: A-fib with RVR Ms. Prieto is a 51 yr old female admitted to ICU 7 with a-fib with RVR. She was bolused and then started on a Cardizem gtt. She subsequently converted and has remained in SR since then. She reports she woke up yesterday morning and was in a-fib. The palpitations persisted and she then came to the ED. She sees EP services at , Dr. Sánchez. She did see him on Apr 06 d/t having at least 6 episodes of PAF requiring ED visits since January. She reports she is to be admitted to [facility] on May 10 for a 3 day stay in order to have her Sotalol increased to 120mg BID. She denies any c/o CP. She reports chronic bilat ankle edema which has been somewhat worse recently. She states she has increased her Lasix to 40 daily at the instruction of Dr. Sánchez. She reports she has had some nausea. No c/o diarrhea or fever. She states she does have sleep apnea, but has not been using her CPAP d/t not being able to get new tubing. She states she has been advised to have sleep studies again, but this is not scheduled as of yet. Review of Systems-Cardiology Review of Systems Constitutional: No chills, No fever, No malaise Eyes: No vision change Ears/Nose/Throat: No epistaxis; nasal drainage; No recent hearing loss Respiratory: As described under HPI Cardiovascular: As described under HPI Gastrointestinal: As described under HPI Genitourinary: No dysuria, No hematuria Musculoskeletal: no symptoms reported Skin: No rash on exposed areas, No ulcerations on exposed areas Psychiatric/Neurological: No anxiety, No depression, No seizure, No focal weakness, No syncope Hematologic: No bleeding abnormalities ISU-Slvexu-Lwnyeq Hx Patient Social History Former smoker/When Quit: Dec 06, 1995 Have you traveled recently?: No Alcohol Use?: No Substance type: Marijuana Pt feels they are or have been: No Past Medical History PMH As described under Assessment. Family Medical History Family Medical History: She denies any family h/o CAD. Allergies and Home Medications Allergies Coded Allergies: Penicillins (Verified Allergy, Severe, 04/21/22) HIVES OR SWELLING sulfamethoxazole (Unverified Allergy, Intermediate, HIVES, 12/08/14) trimethoprim (Unverified Allergy, Intermediate, HIVES, 12/08/14) amoxicillin (Unverified Allergy, Unknown, 12/08/14) doxycycline (Unverified Allergy, Unknown, 12/08/14) amiodarone (Verified Adverse Reaction, Severe, 04/21/22) PT STATES SHE FEELS LIKE SHE IS BEING ELECTROCUTED IN THE SHOULDERS & HIPS WHEN TAKING THIS MEDICATION. Patient Home Medication List Home Medication List Reviewed: Yes Acyclovir (Acyclovir) 400 Mg Tablet, 400 MG PO DAILY, (Reported) Entered as Reported by: JO MUNOZ on 04/21/221299 Last Action: Reviewed Apixaban (Eliquis) 5 Mg Tablet, 5 MG PO BID, (Reported) Entered as Reported by: JO MUNOZ on 04/21/221299 Last Action: Reviewed Aspirin (Aspirin EC) 81 Mg Tablet.dr, 81 MG PO DAILY, (Reported) Entered as Reported by: JO MUNOZ on 04/21/221299 Last Action: Reviewed Biotin (Biotin) 2,500 Mcg Capsule, 10,000 MCG PO DAILY, (Reported) Entered as Reported by: JO MUNOZ on 04/21/221299 Last Action: Reviewed Cetirizine HCl (Cetirizine HCl) 10 Mg Tablet, 10 MG PO DAILY, (Reported) Entered as Reported by: JO MUNOZ on 04/21/22 1300 Last Action: Reviewed Furosemide (Furosemide) 20 Mg Tablet, 20 MG PO DAILY, (Reported) Entered as Reported by: JO MUNOZ on 04/21/221299 Last Action: Reviewed Glimepiride (Glimepiride) 2 Mg Tablet, 2 MG PO BID, (Reported) Entered as Reported by: JO MUNOZ on 04/21/221299 Last Action: Reviewed Glucosa Ruiz 2Kcl/Chondroitin Ruiz (Glucosamine & Chondroitin Cap) 500 Mg-400 Mg Capsule, 2 EACH PO DAILY, (Reported) Entered as Reported by: JO MUNOZ on 04/21/221299 Last Action: Reviewed L.acidoph & Paracasei,B.lactis (Probiotic) 10 Billion Cell Capsule, 1 EACH PO DAILY, (Reported) Entered as Reported by: JO MUNOZ on 04/21/221299 Last Action: Reviewed Lisinopril (Lisinopril) 5 Mg Tablet, 5 MG PO HS, (Reported) Entered as Reported by: JO MUNOZ on 04/21/221299 Last Action: Reviewed Magnesium Oxide (Magnesium Oxide) 400 Mg (241.3 Mg Magnesium) Tablet, 400 MG PO DAILY, (Reported) Entered as Reported by: JO MUNOZ on 04/21/221299 Last Action: Reviewed Metformin HCl (Metformin HCl) 1,000 Mg Tablet, 1,000 MG PO BID, (Reported) Entered as Reported by: JO MUNOZ on 04/21/221299 Last Action: Reviewed Metoprolol Succinate (Metoprolol Succinate) 25 Mg Tab.er.24h, 12.5 MG PO DAILY, (Reported) Entered as Reported by: JO MUNOZ on 04/21/221299 Last Action: Reviewed Multivitamin (Multivitamin) 1 Each Tablet, 1 EACH PO DAILY, (Reported) Entered as Reported by: JO MUNOZ on 04/21/221299 Last Action: Reviewed Omeprazole (Omeprazole) 20 Mg Tablet.dr, 20 MG PO DAILY, (Reported) Entered as Reported by: JO MUNOZ on 04/21/22 1334 Last Action: Reviewed Simvastatin (Simvastatin) 20 Mg Tablet, 20 MG PO HS, (Reported) Entered as Reported by: JO MUNOZ on 04/21/221299 Last Action: Reviewed Sotalol HCl (Sotalol) 80 Mg Tablet, 80 MG PO BID, (Reported) Entered as Reported by: JO MUNOZ on 04/21/22 1302 Last Action: Reviewed Spironolactone (Spironolactone) 25 Mg Tablet, 25 MG PO DAILY, (Reported) Entered as Reported by: JO MUNOZ on 04/21/221299 Last Action: Reviewed Discontinued Medications Clindamycin Hcl (Cleocin Hcl) 300 Mg Capsule, 1 EACH PO QID Discontinued Reason: No Longer Taking Prescribed by: MARGARITO TRAN on 12/08/142024 Last Action: Discontinued Sotalol HCl (Betapace AF) 80 Mg Tablet, 80 MG PO BID, (Reported) Discontinued Reason: Duplicate Order Entered as Reported by: JO MUNOZ on 04/21/22 1300 Last Action: Discontinued Physical Exam-Cardiology Physical Exam Vital Signs/I&O 04/21/22 04/21/22 04/21/22 04/21/22 06:35 07:30 08:00 08:21 Pulse 71 70 67 Resp 20 22 B/P (MAP) 141/71 136/80 (98) Pulse Ox 96 94 97 O2 Delivery Room Air Room Air Room Air 04/21/22 04/21/22 04/21/22 04/21/22 08:48 08:52 09:15 10:00 Temp 36.4 Pulse 71 67 71 Resp 24 19 B/P (MAP) 145/70 (95) 148/74 (98) Pulse Ox 96 96 92 95 O2 Delivery Room Air Room Air Room Air FiO2 21 04/21/22 04/21/22 04/21/22 04/21/22 10:18 11:00 12:00 12:00 Pulse 69 78 77 Resp 20 28 B/P (MAP) 124/71 (88) 169/98 (121) Pulse Ox 96 91 O2 Delivery Room Air Room Air Nasal Cannula O2 Flow Rate 2.00 04/21/22 04/21/22 04/21/22 04/21/22 12:00 12:20 13:00 13:00 Pulse 77 77 79 Resp 25 B/P (MAP) Pulse Ox 92 90 O2 Delivery Nasal Cannula Room Air O2 Flow Rate 2.00 04/21/22 04/21/22 04/21/22 04/21/22 14:00 14:15 15:00 16:00 Pulse 76 71 70 Resp 19 25 17 B/P (MAP) 133/71 (91) 144/75 (98) 132/77 (95) Pulse Ox 91 98 94 97 O2 Delivery Room Air Room Air Nasal Cannula Nasal Cannula O2 Flow Rate 2.00 2.00 04/21/22 16:23 O2 Delivery Nasal Cannula O2 Flow Rate 2.00 Capillary Refill : Less Than 3 Seconds Constitutional: AAO x 3, well-developed, well-nourished HEENT: PERRL, hearing is well preserved, oral hygience is good Neck: No carotid bruit; carotid pulses are 2 + bilaterally Respiratory: No accessory muscle use, No respiratory distress; chest expansion is symmetric, chest is bilaterally symmetric, lungs clear to auscultation Cardiovascular: regular rate-rhythm; No JVD; S1 and S2 Gastrointestinal: No tender; soft, round, audible bowel sounds Extremities: no lower extremity edema bilateral Neurologic/Psychiatric: grossly intact (moves all extremities) Skin: No rash on exposed areas, No ulcerations on exposed areas Data Review Labs Laboratory Tests 04/21/22 03:25: White Blood Count 11.8H, Red Blood Count 4.74, Hemoglobin 11.4L, Hematocrit 38, Mean Corpuscular Volume 80, Mean Corpuscular Hemoglobin 24L, Mean Corpuscular Hemoglobin Concent 30L, Red Cell Distribution Width 15.0H, Platelet Count 336, Mean Platelet Volume 8.8L, Immature Granulocyte % (Auto) 0, Neutrophils (%) (Auto) 79H, Lymphocytes (%) (Auto) 13, Monocytes (%) (Auto) 5, Eosinophils (%) (Auto) 3, Basophils (%) (Auto) 1, Neutrophils # (Auto) 9.3H, Lymphocytes # (Auto) 1.5, Monocytes # (Auto) 0.6, Eosinophils # (Auto) 0.3, Basophils # (Auto) 0.1, Immature Granulocyte # (Auto) 0.0, Sodium Level 143, Potassium Level 3.4L, Chloride Level 104, Carbon Dioxide Level 22, Anion Gap 17H, Blood Urea Nitrogen 6L, Creatinine 0.76, Estimat Glomerular Filtration Rate 95, BUN/Creatinine Ratio 8, Glucose Level 144H, Calcium Level 9.1, Corrected Calcium 9.0, Magnesium Level 1.5L, Total Bilirubin 1.3H, Aspartate Amino Transf (AST/SGOT) 19, Alanine Aminotransferase (ALT/SGPT) 22, Alkaline Phosphatase 85, Troponin I < 0.028, Total Protein 7.7, Albumin 4.1 04/21/22 03:55: Urine Color YELLOW, Urine Clarity CLEAR, Urine pH 6.5, Urine Specific [place] 1.010L, Urine Protein TRACEH, Urine Glucose (UA) NEGATIVE, Urine Ketones NEGATIVE, Urine Nitrite NEGATIVE, Urine Bilirubin NEGATIVE, Urine Urobilinogen 0.2, Urine Leukocyte Esterase NEGATIVE, Urine RBC (Auto) NEGATIVE, Urine RBC NONE, Urine WBC NONE, Urine Crystals NONE, Urine Bacteria NEGATIVE, Urine Casts NONE, Urine Mucus NEGATIVE, Urine Culture Indicated NO, Urine Opiates Screen NEGATIVE, Urine Oxycodone Screen NEGATIVE, Urine Methadone Screen NEGATIVE, Urine Propoxyphene Screen NEGATIVE, Urine Barbiturates Screen NEGATIVE, Ur Tricyclic Antidepressants Screen NEGATIVE, Urine Phencyclidine Screen NEGATIVE, Urine Amphetamines Screen NEGATIVE, Urine Methamphetamines Screen NEGATIVE, Urine Benzodiazepines Screen NEGATIVE, Urine Cocaine Screen NEGATIVE, Urine Cannabinoids Screen POSITIVEH 04/21/22 12:59: Influenza Type A (RT-PCR) Not Detected, Influenza Type B (RT-PCR) Not Detected, SARS-CoV-2 RNA (RT-PCR) Not Detected Laboratory Tests 04/21/22 03:25 A/P-Cardiology Assessment/Admission Diagnosis PAF - A-fib with RVR - converted to SR with Cardizem bolus and gtt - maintaining SR - h/o a-fib ablation x [address] Sánchez - OAC with Eliquis - has not missed any doses H/O ASD repair by Dr. Mcgrath in 2016 CRISTINA - not compliant with CPAP tx DM H/O CHF - reports prior to ASD repair in 2016 her LVEF was 10% - reports she had an echo in September [address] Mcgrath and was told it was "good - echo on 04/21/22: LVEF 55-60%, mod biatrial enlargement, PASP 30-35 mmHg Discussion and Recomendations * oral dilt * increase sotalol to 120 bid (presented with 80 bid) * monitor rhythm * monitor ECG * d/c after the increase in dose of sotalol has been followed with ECG after 3 increased does * echo done (see above) * monitor and replenish lytes Clinical Quality Measures AMI/AHF: ASA po Prior to arrival: MICHELLE Silveira MD FACP FAC CCDS Apr 21, 2022 17:27
[2022-04-21] MEDS ORDERED: polyethylene glycoL POWDER 17 GM (MIRALAX) PACK PO SCH (21:00)
[2022-04-21] MEDS ORDERED: AtorvaSTATin TABLET 10 MG TABLET PO SCH (21:00)
[2022-04-21] MEDS ORDERED: SOTALOL 80 MG (BETAPACE) TAB PO ONE (22:15)
[2022-04-21] MEDS ORDERED: SOTALOL 80 MG (BETAPACE) TAB ONE (22:16)
[2022-04-22] MEDS: ACETAMINOPHEN 500 MG TAB (TYLENOL) PO PRN ×3 (00:47→10:13)
[2022-04-22 03:57] LABS: BASOPHILS # (AUTO) 0.1 10^3/uL (0.0-0.1); BASOPHILS % (AUTO) 1 % (0-10); EOSINOPHILS # (AUTO) 0.1 10^3/uL (0.0-0.3); EOSINOPHILS % (AUTO) 1 % (0-10); HEMATOCRIT 34 % (35-52); HEMOGLOBIN 10.1 g/dL (11.5-16.0); LYMPHOCYTES # (AUTO) 1.5 10^3/uL (1.0-4.0); LYMPHOCYTES % (AUTO) 16 % (12-44); MEAN CORPUSCULAR HEMOGLOBIN 24 pg (25-34); MEAN CORPUSCULAR HGB CONC 30 g/dL (32-36); MEAN CORPUSCULAR VOLUME 80 fL (80-99); MONOCYTES # (AUTO) 0.7 10^3/uL (0.0-1.0); MONOCYTES % (AUTO) 8 % (0-12); NEUTROPHILS # (AUTO) 7.3 10^3/uL (1.8-7.8); NEUTROPHILS % (AUTO) 75 % (42-75); PLATELET COUNT 286 10^3/uL (130-400); WHITE BLOOD COUNT 9.8 10^3/uL (4.3-11.0)
[2022-04-22 04:11] LABS: POTASSIUM 3.7 MMOL/L (3.6-5.0)
[2022-04-22 04:17] LABS: CREATININE SERUM 0.66 MG/DL (0.60-1.30)
[2022-04-22] MEDS ORDERED: MAGNESIUM 1 GM/100 ML IVPB 100 ML IV SCH (06:00)
[2022-04-22] MEDS ORDERED: KCL 20 MEQ TAB (K-DUR) PO SCH (06:00)
[2022-04-22] MEDS ORDERED: POTASSIUM CL 10MEQ/50ML IVPB 50 ML IV SCH (06:00)
[2022-04-22] MEDS ORDERED: GLIMEPIRIDE 2 MG (AMARYL) TAB PO SCH (06:30)
[2022-04-22] MEDS ORDERED: metFORMIN 500 MG (GLUCOPHAGE) TAB PO SCH (07:00)
[2022-04-22] MEDS ORDERED: SOTALOL 80 MG (BETAPACE) TAB PO SCH (09:00)
--- NOTE | 2022-04-22 09:17 | Discharge Inst-Simple/Standard ---
Discharge Inst-Standard Discharge Medications New, Converted or Re-Newed RX: Transmitted to Pharmacy Patient Instructions/Follow Up Plan of Care/Instructions/FU: Please continue to take your medications as written. Please follow up with your primary care doctor to follow up this hospital stay. Activity as Tolerated: Yes Discharge Diet: Cardiac Diet Return to The Hospital For: Chest pain, shortness of breath, fever, weakness, if you feel you are getting worse. ZOYA IRAHETA MD Apr 22, 2022 09:17
[2022-04-22] MEDS ORDERED: DILT240C91 PO (09:51)
--- NOTE | 2022-04-22 09:54 | Progress Note - Cardiology ---
Cardiology SOAP Progress Note Objective: I&O/Vital Signs 04/21/22 04/21/22 04/21/22 04/22/22 22:17 23:00 23:15 00:00 Pulse 64 63 60 Resp 20 B/P (MAP) 105/66 (79) 104/56 (72) Pulse Ox 91 95 90 O2 Delivery Nasal Cannula Nasal Cannula Nasal Cannula O2 Flow Rate 2.00 2.00 2.00 04/22/22 04/22/22 04/22/22 04/22/22 00:10 01:00 01:00 02:00 Temp 36.9 Pulse 70 63 63 Resp 21 B/P (MAP) 133/77 (95) 115/63 (80) Pulse Ox 92 93 O2 Delivery Nasal Cannula Nasal Cannula O2 Flow Rate 2.00 2.00 04/22/22 04/22/22 04/22/22 04/22/22 03:00 03:43 03:50 04:00 Temp 36.9 Pulse 63 63 Resp B/P (MAP) 125/68 (87) 125/70 (88) Pulse Ox 94 94 92 O2 Delivery Nasal Cannula Nasal Cannula Nasal Cannula O2 Flow Rate 2.00 2.00 2.00 04/22/22 04/22/22 04/22/22 04/22/22 05:00 06:00 07:00 07:00 Pulse 64 71 63 61 Resp 24 21 B/P (MAP) 131/74 (93) 132/75 (94) 145/71 (95) Pulse Ox 94 97 95 O2 Delivery Nasal Cannula Nasal Cannula Nasal Cannula O2 Flow Rate 2.00 2.00 2.00 04/22/22 04/22/22 04/22/22 08:00 08:00 09:00 Temp 36.2 Pulse 67 69 Resp 22 13 B/P (MAP) 145/73 (97) 143/82 (102) Pulse Ox 97 96 O2 Delivery Nasal Cannula Nasal Cannula O2 Flow Rate 2.00 2.00 04/22/22 00:00 Intake Total 2820 ml Balance 2820 ml Weight (Pounds): 320 Weight (Calculated Kilograms): 145.502231 Constitutional: AAO x 3, well-developed, well-nourished Respiratory: No accessory muscle use, No respiratory distress; chest expansion is symmetric, chest is bilaterally symmetric, lungs clear to auscultation Cardiovascular: regular rate-rhythm; No JVD; S1 and S2 Gastrointestional: No tender; soft, round, audible bowel sounds Extremities: no lower extremity edema bilateral Neurologic/Psychiatric: grossly intact (moves all extremities) Skin: No rash on exposed areas, No ulcerations on exposed areas Results/Procedures: Labs Laboratory Tests 04/21/22 12:59: Influenza Type A (RT-PCR) Not Detected, Influenza Type B (RT-PCR) Not Detected, SARS-CoV-2 RNA (RT-PCR) Not Detected 04/22/22 03:50: White Blood Count 9.8, Red Blood Count 4.24, Hemoglobin 10.1L, Hematocrit 34L, Mean Corpuscular Volume 80, Mean Corpuscular Hemoglobin 24L, Mean Corpuscular Hemoglobin Concent 30L, Red Cell Distribution Width 15.2H, Platelet Count 286, Mean Platelet Volume 9.0, Immature Granulocyte % (Auto) 1, Neutrophils (%) (Auto) 75, Lymphocytes (%) (Auto) 16, Monocytes (%) (Auto) 8, Eosinophils (%) (Auto) 1, Basophils (%) (Auto) 1, Neutrophils # (Auto) 7.3, Lymphocytes # (Auto) 1.5, Monocytes # (Auto) 0.7, Eosinophils # (Auto) 0.1, Basophils # (Auto) 0.1, Immature Granulocyte # (Auto) 0.1, Sodium Level 139, Potassium Level 3.7, Chloride Level 104, Carbon Dioxide Level 24, Anion Gap 11, Blood Urea Nitrogen 8, Creatinine 0.66, Estimat Glomerular Filtration Rate 106, BUN/Creatinine Ratio 12, Glucose Level 130H, Calcium Level 9.0, Magnesium Level 2.0 Microbiology 04/21/22 MRSA Screen - Final, Complete MRSA not isolated Laboratory Tests 04/21/22 03:25 04/22/22 03:50 A/P: Assessment: PAF - A-fib with RVR - converted to SR with Cardizem bolus and gtt - maintaining SR - h/o a-fib ablation x [address] Sánchez - OAC with Eliquis - has not missed any doses H/O ASD repair by Dr. Mcgrath in 2016 [place] - not compliant with CPAP tx DM H/O CHF - reports prior to ASD repair in 2016 her LVEF was 10% - reports she had an echo in September [address] Mcgrath and was told it was "good - echo on 04/21/22: LVEF 55-60%, mod biatrial enlargement, PASP 30-35 mmHg Plan: * Contineu oral dilt * D/t somewhat prolonged QTc on EKG yesterday following increased dose of Sotalol (albeit within limits) we have reduced the Sotalol back to 80mg BID which has lead to improvement in her QTc. * Ok to discharge home today * Out pt f/u with Dr. Sánchez of [facility] EP services Clinical Quality Measures AMI/AHF: ASA po Prior to arrival: HENRI Goode Apr 22, 2022 09:54
[2022-04-22] MEDS: APIXABAN 5 MG (ELIQUIS) TABLET PO SCH (10:08)
[2022-04-22] MEDS: lisINopril 5 MG (PRINIVIL) TABLET PO SCH (10:09)
[2022-04-22] MEDS: FUROSEMIDE 20 MG (LASIX) TAB PO SCH (10:09)
[2022-04-22] MEDS: SPIRONOLACTONE 25 MG (ALDACTONE) TAB PO SCH (10:09)
[2022-04-22] MEDS: MAGNESIUM OXIDE (MAG-OX)400 MG TAB PO SCH (10:09)
--- NOTE | 2022-04-22 10:21 | Discharge Summary ---
Diagnosis/Chief Complaint Date of Admission Apr 21, 2022 at 6:00 am Date of Discharge Discharge Date: Apr 22, 2022 Admission Diagnosis A-fib with RVR Primary Care Joseph Kwok MD Discharge Diagnosis (1) Essential (primary) hypertension (2) HLD (hyperlipidemia) (3) Non-insulin dependent type 2 diabetes mellitus (4) Atrial fibrillation with rapid ventricular response Status: Acute Discharge Summary Discharge Physical Exam Allergies: Coded Allergies: Penicillins (Verified Allergy, Severe, 04/21/22) HIVES OR SWELLING sulfamethoxazole (Unverified Allergy, Intermediate, HIVES, 12/08/14) trimethoprim (Unverified Allergy, Intermediate, HIVES, 12/08/14) amoxicillin (Unverified Allergy, Unknown, 12/08/14) doxycycline (Unverified Allergy, Unknown, 12/08/14) amiodarone (Verified Adverse Reaction, Severe, 04/21/22) PT STATES SHE FEELS LIKE SHE IS BEING ELECTROCUTED IN THE SHOULDERS & HIPS WHEN TAKING THIS MEDICATION. Vitals & I&Os Vital Signs Date Time Temp Pulse Resp B/P (MAP) Pulse Ox O2 Delivery O2 Flow Rate FiO2 04/22/22 11:00 04/22/22 10:00 73 23 93 Nasal Cannula 2.00 04/22/22 08:00 36.2 04/21/22 08:48 21 General Appearance: No Apparent Distress, WD/WN Respiratory: Lungs Clear, No Respiratory Distress Cardiovascular: Regular Rate, Rhythm, No Murmur Neurologic/Psychiatric: Alert, Oriented x3 Hospital Course Patient was admitted to the ICU secondary to atrial fibrillation with rapid ventricular rate. She started on Cardizem drip and did well and converted back to normal sinus rhythm. Cardizem drip was discontinued and cardiology attempted to increase her sotalol as she already has an appointment set with her EP later this month to do. Unfortunately she did not tolerate the increase as she had a QTC prolonged. She was brought back down to her normal sotalol dose and remained stable. She was discharged home to follow-up with her EP to follow-up this hospital stay. Labs (last 24 hrs) Microbiology 04/21/22 MRSA Screen - Final, Complete MRSA not isolated Patient resulted labs reviewed. Pending Labs Discussion & Recommendations Discharge Planning: >30 minutes discharge planning Discharge Home Medications: Active Scripts Active Diltiazem 24Hr ER (Diltiazem HCl) 240 Mg Cap.er.24h 240 Mg PO DAILY Reported Omeprazole 20 Mg Tablet.dr 20 Mg PO DAILY Sotalol (Sotalol HCl) 80 Mg Tablet 80 Mg PO BID Probiotic (L.acidoph & Paracasei,B.lactis) 10 Billion Cell Capsule 1 Each PO DAILY Multivitamin 1 Each Tablet 1 Each PO DAILY Cetirizine HCl 10 Mg Tablet 10 Mg PO DAILY Biotin 2,500 Mcg Capsule 10,000 Mcg PO DAILY TAKES 4 CAPS Glucosamine & Chondroitin Cap (Glucosa Ruiz 2Kcl/Chondroitin Ruiz) 500 Mg-400 Mg Capsule 2 Each PO DAILY Aspirin EC (Aspirin) 81 Mg Tablet.dr 81 Mg PO DAILY Furosemide 20 Mg Tablet 20 Mg PO DAILY Lisinopril 5 Mg Tablet 5 Mg PO HS Magnesium Oxide 400 Mg (241.3 Mg Magnesium) Tablet 400 Mg PO DAILY Simvastatin 20 Mg Tablet 20 Mg PO HS Spironolactone 25 Mg Tablet 25 Mg PO DAILY Eliquis (Apixaban) 5 Mg Tablet 5 Mg PO BID Metformin HCl 1,000 Mg Tablet 1,000 Mg PO BID Glimepiride 2 Mg Tablet 2 Mg PO BID Acyclovir 400 Mg Tablet 400 Mg PO DAILY Instructions to patient/family Please see electronic discharge instructions given to patient. Clinical Quality Measures AMI/AHF: ASA po Prior to arrival: ZOYA Alvarado MD Apr 22, 2022 10:21
--- NOTE | 2022-04-22 17:20 | Progress Note - Cardiology ---
Cardiology SOAP Progress Note Subjective: No shortness of breath No malaise or weakness No n/v/d No focal weakness No cp or palp or syncope Objective: I&O/Vital Signs 04/22/22 04/22/22 04/22/22 04/22/22 06:00 07:00 07:00 08:00 Temp 36.2 Pulse 71 63 61 Resp 27 21 B/P (MAP) 132/75 (94) 145/71 (95) Pulse Ox 97 95 O2 Delivery Nasal Cannula Nasal Cannula O2 Flow Rate 2.00 2.00 04/22/22 04/22/22 04/22/22 04/22/22 08:00 08:00 09:00 10:00 Pulse 67 69 73 Resp 22 13 23 B/P (MAP) 145/73 (97) 143/82 (102) 134/96 (109) Pulse Ox 95 97 96 93 O2 Delivery Room Air Nasal Cannula Nasal Cannula Nasal Cannula O2 Flow Rate 2.00 2.00 2.00 04/22/22 11:00 B/P (MAP) 04/22/22 00:00 Intake Total 2820 ml Balance 2820 ml Weight (Pounds): 320 Weight (Calculated Kilograms): 145.089635 Constitutional: AAO x 3, well-developed, well-nourished Respiratory: No accessory muscle use, No respiratory distress; chest expansion is symmetric, chest is bilaterally symmetric, lungs clear to auscultation Cardiovascular: regular rate-rhythm; No JVD; S1 and S2 Gastrointestional: No tender; soft, round, audible bowel sounds Extremities: no lower extremity edema bilateral Neurologic/Psychiatric: grossly intact (moves all extremities) Skin: No rash on exposed areas, No ulcerations on exposed areas Results/Procedures: Labs Laboratory Tests 04/22/22 03:50: White Blood Count 9.8, Red Blood Count 4.24, Hemoglobin 10.1L, Hematocrit 34L, Mean Corpuscular Volume 80, Mean Corpuscular Hemoglobin 24L, Mean Corpuscular Hemoglobin Concent 30L, Red Cell Distribution Width 15.2H, Platelet Count 286, Mean Platelet Volume 9.0, Immature Granulocyte % (Auto) 1, Neutrophils (%) (Auto) 75, Lymphocytes (%) (Auto) 16, Monocytes (%) (Auto) 8, Eosinophils (%) (Auto) 1, Basophils (%) (Auto) 1, Neutrophils # (Auto) 7.3, Lymphocytes # (Auto) 1.5, Monocytes # (Auto) 0.7, Eosinophils # (Auto) 0.1, Basophils # (Auto) 0.1, Immature Granulocyte # (Auto) 0.1, Sodium Level 139, Potassium Level 3.7, Chloride Level 104, Carbon Dioxide Level 24, Anion Gap 11, Blood Urea Nitrogen 8, Creatinine 0.66, Estimat Glomerular Filtration Rate 106, BUN/Creatinine Ratio 12, Glucose Level 130H, Calcium Level 9.0, Magnesium Level 2.0 Microbiology 04/21/22 MRSA Screen - Final, Complete MRSA not isolated Laboratory Tests 04/21/22 03:25 04/22/22 03:50 A/P: Assessment: PAF - A-fib with RVR - converted to SR with Cardizem bolus and gtt - maintaining SR - h/o a-fib ablation x [address] Sánchez - OAC with Eliquis - has not missed any doses H/O ASD repair by Dr. Mcgrath in 2016 CRISTINA - not compliant with CPAP tx DM H/O CHF - reports prior to ASD repair in 2016 her LVEF was 10% - reports she had an echo in September [address] Mcgrath and was told it was "good - echo on 04/21/22: LVEF 55-60%, mod biatrial enlargement, PASP 30-35 mmHg Plan: * Contineu oral dilt * D/t somewhat prolonged QTc on EKG yesterday following increased dose of sotalol (albeit within limits) we have reduced the Sotalol back to 80mg BID which has lead to improvement in her QTc. She is chronically on current dose (80 mg po bid) and we have decided to leave it as such and have advised her to f/u with her EP CHETNA * Ok to discharge home today * Out pt f/u with Dr. Sánchez of [facility] EP services Clinical Quality Measures AMI/AHF: ASA po Prior to arrival: MICHELLE Silveira MD [facility] CCDS Apr 22, 2022 17:20
== END 2022-04-22 11:00 | disposition home or self-care (01) ==
LOC: EDUNIT# 03:05 → ER 03:07 → ICU 06:00
PROVIDERS: ADMIT Internal Medicine; ATTEND Internal Medicine
DX: I48.0 Paroxysmal atrial fibrillation (principal); E78.5 Hyperlipidemia, unspecified; E11.9 Type 2 diabetes mellitus without complications; G47.33 Obstructive sleep apnea (adult) (pediatric); I11.0 Hypertensive heart disease with heart failure; Z87.891 Personal history of nicotine dependence; Z79.82 Long term (current) use of aspirin; Z79.84 Long term (current) use of oral hypoglycemic drugs; Z79.899 Other long term (current) drug therapy
CPT/HCPCS: 80048; 80053; 80306; 81000; 83735 ×2; 84484; 85025 ×2; 87081; 87636; 93005 ×2; 94760; 96366; 96375; 99283; C8929; G0378; 36415; 93306

== ENCOUNTER 2022-04-28 06:21 | Observation (INO) | payer OTHER ==
[~2022-04-28] VITALS: Ht 177.8 cm; Wt 150.7 kg
[~2022-04-28 06:21] MED LIST changes: +ACYC400T21 PO; +APIX5TAB PO; +ASPI-1238 PO; +BIOT25007 PO; +CETI10TA17 PO; +DILT240C91 PO; +FURO20TA4 PO; +GLIM2TAB4 PO; +GLUC1CAP37 PO; +L.AC1CAP6 PO; +LISI5TAB20 PO; +METF-399 PO; +MGX400T PO; +MTP25TSR PO; +MULT-1136 PO; +OMEP-401 PO; +OMEP20TA56 PO; +SIMV20TA26 PO; +SOTA80TA23 PO; +SPIR25TA5 PO; +STL80T PO
[2022-04-28] MEDS ORDERED: NS IV 1000 ML 1,000 ML IV SCH (06:45)
--- NOTE | 2022-04-28 06:48 | ED Cardiac General ---
History of Present Illness General Chief Complaint: Cardiac/General Problems Stated Complaint: FAST IRREGULAR HRT BEAT Nursing Triage Note: TO ED VIA POV AND AMBULATORY TO ROOM 5 WITH C/O FAST HR SINCE 529 AND STATES SHE WAS WATCHING [employer] VIDEOS. HX AFIB. STATES HAS BEEN TAKING MEDICATIONS "RELIGIOUSLY". Source: patient Exam Limitations: no limitations History of Present Illness Date Seen by Provider: Apr 28, 2022 Time Seen by Provider: 06:30 Initial Comments Patient is a 51-year-old female who presents to the emergency department today with a chief complaint of irregular, rapid heartbeat. She states she feels discomfort in her chest but not actual pain. She is a little short of breath. No nausea. She was recently in the hospital on April 21 through the for similar symptoms. Chronic intermittent atrial fibrillation chronically anticoagulated on Eliquis. Patient states she is compliant with her medications although she has not taken her morning meds. She woke up at about 530 this morning asymptomatic and then about 15 to 30 minutes later felt the onset of symptoms. She states she has had a little bit of increased swelling in her lower extremities over the last week. No other complaints of illness, URI symptoms, COVID symptoms or flu symptoms. She is awaiting follow-up with KAELYN, her cement cutter after her most recent hospitalization from the to the . Timing/Duration: 1 hour Severity: moderate Location: substernal Activities at Onset: rest Prior CP/Workup: cardiac cath, echocardiography NTG [employer]: No Associated Systoms: Denies Symptoms; No Chest Pain, No Malaise, No Nausea/Vomiting, No Shortness of Air, No Weakness Allergies and Home Medications Allergies Coded Allergies: Penicillins (Verified Allergy, Severe, 04/21/22) HIVES OR SWELLING sulfamethoxazole (Unverified Allergy, Intermediate, HIVES, 12/08/14) trimethoprim (Unverified Allergy, Intermediate, HIVES, 12/08/14) amoxicillin (Unverified Allergy, Unknown, 12/08/14) doxycycline (Unverified Allergy, Unknown, 12/08/14) amiodarone (Verified Adverse Reaction, Severe, 04/21/22) PT STATES SHE FEELS LIKE SHE IS BEING ELECTROCUTED IN THE SHOULDERS & HIPS WHEN TAKING THIS MEDICATION. Patient Home Medication List Home Medication List Reviewed: Yes Acyclovir (Acyclovir) 400 Mg Tablet, 400 MG PO DAILY, (Reported) Entered as Reported by: JO MUNOZ on 04/21/22 1300 Apixaban (Eliquis) 5 Mg Tablet, 5 MG PO BID, (Reported) Entered as Reported by: JO MUNOZ on 04/21/22 1300 Aspirin (Aspirin EC) 81 Mg Tablet.dr, 81 MG PO DAILY, (Reported) Entered as Reported by: JO MUNOZ on 04/21/22 1300 Biotin (Biotin) 2,500 Mcg Capsule, 10,000 MCG PO DAILY, (Reported) Entered as Reported by: JO MUNOZ on 04/21/22 1300 Cetirizine HCl (Cetirizine HCl) 10 Mg Tablet, 10 MG PO DAILY, (Reported) Entered as Reported by: JO MUNOZ on 04/21/22 1300 Diltiazem HCl (Diltiazem 24Hr ER) 240 Mg Cap.er.24h, 240 MG PO DAILY Prescribed by: HENRI MACIEL on 04/22/22 0951 Furosemide (Furosemide) 20 Mg Tablet, 20 MG PO DAILY, (Reported) Entered as Reported by: JO MUNOZ on 04/21/22 1300 Glimepiride (Glimepiride) 2 Mg Tablet, 2 MG PO BID, (Reported) Entered as Reported by: JO MUNOZ on 04/21/22 1300 Glucosa Ruiz 2Kcl/Chondroitin Ruiz (Glucosamine & Chondroitin Cap) 500 Mg-400 Mg Capsule, 2 EACH PO DAILY, (Reported) Entered as Reported by: JO MUNOZ on 04/21/22 1300 L.acidoph & Paracasei,B.lactis (Probiotic) 10 Billion Cell Capsule, 1 EACH PO DAILY, (Reported) Entered as Reported by: JO MUNOZ on 04/21/22 1300 Lisinopril (Lisinopril) 5 Mg Tablet, 5 MG PO HS, (Reported) Entered as Reported by: JO MUNOZ on 04/21/22 1300 Magnesium Oxide (Magnesium Oxide) 400 Mg (241.3 Mg Magnesium) Tablet, 400 MG PO DAILY, (Reported) Entered as Reported by: JO MUNOZ on 04/21/22 1300 Metformin HCl (Metformin HCl) 1,000 Mg Tablet, 1,000 MG PO BID, (Reported) Entered as Reported by: JO MUNOZ on 04/21/22 1300 Multivitamin (Multivitamin) 1 Each Tablet, 1 EACH PO DAILY, (Reported) Entered as Reported by: JO MUNOZ on 04/21/22 1300 Omeprazole (Omeprazole) 20 Mg Tablet.dr, 20 MG PO DAILY, (Reported) Entered as Reported by: JO MUNOZ on 04/21/22 1334 Simvastatin (Simvastatin) 20 Mg Tablet, 20 MG PO HS, (Reported) Entered as Reported by: JO MUNOZ on 04/21/22 1300 Sotalol HCl (Sotalol) 80 Mg Tablet, 80 MG PO BID, (Reported) Entered as Reported by: JO MUNOZ on 04/21/22 1302 Spironolactone (Spironolactone) 25 Mg Tablet, 25 MG PO DAILY, (Reported) Entered as Reported by: JO MUNOZ on 04/21/22 1300 Discontinued Medications Clindamycin Hcl (Cleocin Hcl) 300 Mg Capsule, 1 EACH PO QID Discontinued Reason: No Longer Taking Prescribed by: MARGARITO TRAN on 12/08/142024 Metoprolol Succinate (Metoprolol Succinate) 25 Mg Tab.er.24h, 12.5 MG PO DAILY, (Reported) Entered as Reported by: JO MUNOZ on 04/21/22 1300 Sotalol HCl (Betapace AF) 80 Mg Tablet, 80 MG PO BID, (Reported) Discontinued Reason: Duplicate Order Entered as Reported by: JO MUNOZ on 04/21/22 1300 Review of Systems Review of Systems Constitutional: see HPI EENTM: Nose Congestion (1 week) Respiratory: No Symptoms Reported Cardiovascular: Irregular Heart Rate, Palpitations Gastrointestinal: No Symptoms Reported Genitourinary: No Symptoms Reported Musculoskeletal: no symptoms reported Skin: no symptoms reported Psychiatric/Neurological: No Symptoms Reported All Other Systems Reviewed Negative Unless Noted: Yes Past Imcfjsa-Uhbxhv-Vbqayi Hx Patient Social History Tobacco Use?: No Substance use?: Yes Substance type: Marijuana Alcohol Use?: No Immunizations Up To Date First/Initial COVID19 Vaccinat: UNKNOWN Second COVID19 Vaccination Miguel: UNKNOWN Third COVID19 Vaccination Date: UNKNOWN Past Medical History Surgeries: Yes Cardiac, Gallbladder Respiratory: No Cardiac: Yes Atrial Fibrillation, Irregular Heartbeat, Palpitations Neurological: No Reproductive Disorders: No Sexually Transmitted Disease: No Family Medical History No Pertinent Family Hx Physical Exam Vital Signs Vital Signs - First Documented 04/28/22 06:30 Temp 36.6 Pulse 113 Resp 18 B/P (MAP) 143/106 (118) Pulse Ox 96 O2 Delivery Room Air Capillary Refill : Less Than 3 Seconds Height, Weight, BMI Height: 5'10" Weight: 320lbs. oz. 145.778314zi; 47.99 BMI Method:Stated General Appearance: No Apparent Distress, WD/WN, Obese HEENT: PERRL/EOMI Neck: Normal Inspection Respiratory: Lungs Clear, Normal Breath Sounds, No Accessory Muscle Use, No Respiratory Distress Cardiovascular: Irregularly Irregular, Tachycardia Gastrointestinal: Non Tender, Soft Extremity: Normal Capillary Refill, Normal Inspection, Normal Range of Motion, No Pedal Edema Neurologic/Psychiatric: Alert, Oriented x3, No Motor/Sensory Deficits, Normal Mood/Affect Skin: Normal Color, Warm/Dry Procedures/Interventions Patient Education: Explained Benefits Progress/Results/Core Measures Results/Orders Lab Results Laboratory Tests Test 04/28/22 06:40 Range/Units White Blood Count 11.4 H 4.3-11.0 10^3/uL Red Blood Count 5.18 H 3.80-5.11 10^6/uL Hemoglobin 12.4 # 11.5-16.0 g/dL Hematocrit 41 35-52 % Mean Corpuscular Volume 79 L 80-99 fL Mean Corpuscular Hemoglobin 24 L 25-34 pg Mean Corpuscular Hemoglobin Concent 30 L 32-36 g/dL Red Cell Distribution Width 15.5 H 10.0-14.5 % Platelet Count 390 130-400 10^3/uL Mean Platelet Volume 8.8 L 9.0-12.2 fL Immature Granulocyte % (Auto) 0 % Neutrophils (%) (Auto) 70 42-75 % Lymphocytes (%) (Auto) 22 12-44 % Monocytes (%) (Auto) 5 0-12 % Eosinophils (%) (Auto) 3 0-10 % Basophils (%) (Auto) 0 0-10 % Neutrophils # (Auto) 7.9 H 1.8-7.8 10^3/uL Lymphocytes # (Auto) 2.5 1.0-4.0 10^3/uL Monocytes # (Auto) 0.6 0.0-1.0 10^3/uL Eosinophils # (Auto) 0.3 0.0-0.3 10^3/uL Basophils # (Auto) 0.1 0.0-0.1 10^3/uL Immature Granulocyte # (Auto) 0.0 0.0-0.1 10^3/uL Sodium Level 140 135-145 MMOL/L Potassium Level 3.2 L 3.6-5.0 MMOL/L Chloride Level 101 98-107 MMOL/L Carbon Dioxide Level 26 21-32 MMOL/L Anion Gap 13 5-14 MMOL/L Blood Urea Nitrogen 9 7-18 MG/DL Creatinine 0.71 0.60-1.30 MG/DL Estimat Glomerular Filtration Rate 103 BUN/Creatinine Ratio 13 Glucose Level 156 H 70-105 MG/DL Calcium Level 9.7 8.5-10.1 MG/DL Magnesium Level 1.5 L 1.6-2.4 MG/DL My Orders Orders - YECENIA HAN MD Continuous Ekg Monitoring (04/28/22 06:33) Ekg Tracing (04/28/22 06:33) Ed Iv/Invasive Line Start (04/28/22 06:41) Cbc With Automated Diff (04/28/22 06:41) Basic Metabolic Panel (04/28/22 06:41) Magnesium (04/28/22 06:41) Ekg Tracing (04/28/22 06:41) Ns Iv 1000 Ml (Sodium Chloride 0.9%) (04/28/22 06:45) Diltiazem Injection (Cardizem Injection) (04/28/22 06:45) Magnesium 1 Gm/100 Ml Ivpb (Magnesium Ruiz (04/28/22 07:15) Potassium Chloride (Tablet) (K Dur Table (04/28/22 07:15) Diltiazem Injection (Cardizem Injection) (04/28/22 07:30) Cardizem Drip (04/28/22 08:15) Medications Given in ED Current Medications Medications Dose Ordered Sig/Tanisha Route Start Time Stop Time Status Last Admin Dose Admin Diltiazem HCl 10 mg ONCE ONCE IVP 04/28/22 07:30 04/28/22 07:31 DC 04/28/22 07:33 10 MG Diltiazem HCl 20 mg ONCE ONCE IVP 04/28/22 06:45 04/28/22 06:46 DC 04/28/22 06:49 20 MG Magnesium Sulfate/ Dextrose 100 ml @ 100 mls/hr ONCE ONCE IV 04/28/22 07:15 04/28/22 08:14 04/28/22 07:36 100 MLS/HR Potassium Chloride 40 meq ONCE ONCE PO 04/28/22 07:15 04/28/22 07:17 DC 04/28/22 07:36 40 MEQ Vital Signs/I&O 04/28/22 04/28/22 04/28/22 06:30 06:49 07:33 Temp 36.6 Pulse 113 134 118 Resp 18 B/P (MAP) 143/106 (118) 142/110 142/119 Pulse Ox 96 O2 Delivery Room Air Blood Pressure Mean: 118 Progress Progress Note : Time: 08:05 Progress Note Patient reevaluated noted her heart rate from 98-112 as she is resting, not talking in the bed. As soon as they engage during conversation her heart rate goes back up to 130. She continues to feel symptomatic although clinically looks very well. Normal blood pressure, normal oxygenation on room air. Afebrile. Normal exam, no significant edema in her lower extremities. Notably on laboratory studies she is slightly low on magnesium at 1.5, slightly low on potassium at 3.2. Otherwise electrolytes and CBC are within normal limits. Chest x-ray was not obtained as she recently had 1 within the last week. No complaints or concerns with acute pulmonary pathology therefore chest x-ray was not ordered. No clinical indications for CT angiography. The patient is chronically anticoagulated on Eliquis. Consideration for CTA however history and physical exam do not support the need. Patient received 2 days of Cardizem. 20 mg followed by 10. No change in rate. No change in rhythm. Case discussed with the patient, cannot send her home with a heart rate of 130. I spoke with Dr. Pichardo at [address] Avila who accepts the patient for admission. Patient will need to go to the ICU as her Cardizem drip will be titrated. Initial ECG Impression Date: Apr 28, 2022 Initial ECG Impression Time: 06:34 Initial ECG Rate: 127 Initial ECG Rhythm: A Fib/Flutter Initial ECG Impression: Nonspecific Changes Comment run of 3 PVC's noted Critical Care Note Critical Care Start Time: 06:30 Stop Time: 08:00 Total Time (minutes) 30 minutes critical care time in the evaluation and management of this patient with A. fib RVR. Time includes initial evaluation, management of rapid ventric ular response with IV bolus doses of Cardizem followed by Cardizem drip. Review of the medical record, previous ED visits, labs and imaging. Reevaluation of the patient. Discussion with cardiology and discussion with internal medicine for admission. Departure Communication (Admissions) Time/Spoke to Admitting Phy: 08:[address] Avila Time/Spoke to Consulting Phy: 08:[address] Pichardo; titrate cardizem drip; ICU Impression Primary Impression: Atrial fibrillation with rapid ventricular response Additional Impressions: Hypomagnesemia Hypokalemia Diabetes Qualified Codes: E11.69 - Type 2 diabetes mellitus with other specified complication Disposition: ADMITTED INPATIENT Condition: Critical Admissions Decision to Admit Reason: Admit from ER (General) Decision to Admit/Date: Apr 28, 2022 Time/Decision to Admit Time: 08:09 Departure-Patient Inst. Referrals: BARBRA SHERIFF MD (PCP/Family) Primary Care Physician Copy Copies To 1: BARBRA SHERIFF MD, KATHRYN M MD Apr 28, 2022 06:48
[2022-04-28 06:49] LABS: BASOPHILS # (AUTO) 0.1 10^3/uL (0.0-0.1); BASOPHILS % (AUTO) 0 % (0-10); EOSINOPHILS # (AUTO) 0.3 10^3/uL (0.0-0.3); EOSINOPHILS % (AUTO) 3 % (0-10); HEMATOCRIT 41 % (35-52); HEMOGLOBIN 12.4 g/dL (11.5-16.0); LYMPHOCYTES # (AUTO) 2.5 10^3/uL (1.0-4.0); LYMPHOCYTES % (AUTO) 22 % (12-44); MEAN CORPUSCULAR HEMOGLOBIN 24 pg (25-34); MEAN CORPUSCULAR HGB CONC 30 g/dL (32-36); MEAN CORPUSCULAR VOLUME 79 fL (80-99); MEAN PLATELET VOLUME 8.8 fL (9.0-12.2); MONOCYTES # (AUTO) 0.6 10^3/uL (0.0-1.0); MONOCYTES % (AUTO) 5 % (0-12); NEUTROPHILS # (AUTO) 7.9 10^3/uL (1.8-7.8); NEUTROPHILS % (AUTO) 70 % (42-75); PLATELET COUNT 390 10^3/uL (130-400); WHITE BLOOD COUNT 11.4 10^3/uL (4.3-11.0)
[2022-04-28 07:00] LABS: POTASSIUM 3.2 MMOL/L (3.6-5.0)
[2022-04-28 07:01] LABS: CALCIUM 9.7 MG/DL (8.5-10.1)
[2022-04-28 07:06] LABS: CREATININE SERUM 0.71 MG/DL (0.60-1.30)
[2022-04-28 07:08] LABS: MAGNESIUM 1.5 MG/DL (1.6-2.4)
[2022-04-28] MEDS ORDERED: MAGNESIUM 1 GM/100 ML IVPB 100 ML IV ONE (07:15)
[2022-04-28] MEDS ORDERED: KCL 20 MEQ TAB (K-DUR) PO ONE (07:15)
[2022-04-28] MEDS ORDERED: dilTIAZem DRIP PRE-MIX 125 ML IV SCH ×2 (08:15→10:00)
[2022-04-28 09:10] VITALS: BP 107/94
[2022-04-28] MEDS ORDERED: MILK OF MAGNESIA 400 MG/5 ML 30 ML UDC PO PRN (10:00)
[2022-04-28] MEDS ORDERED: polyethylene glycoL POWDER 17 GM (MIRALAX) PACK PO PRN (10:00)
[2022-04-28] MEDS ORDERED: CALCIUM CARBONATE 500 MG (TUMS) TAB.CHEW PO PRN (10:00)
[2022-04-28] MEDS ORDERED: diphenhydrAMINE 50 MG/ML INJ (BENADRYL) IVP PRN (10:00)
[2022-04-28] MEDS ORDERED: BISACODYL 10 MG SUPP (DULCOLAX) PR PRN (10:00)
[2022-04-28] MEDS ORDERED: ANTACID SUSP 30 ML UDC (MYLANTA) PO PRN (10:00)
[2022-04-28] MEDS ORDERED: ONDANSETRON 4 MG/2 ML (SDV) Z0FRAN IV PRN (10:00)
[2022-04-28] MEDS ORDERED: MELATONIN 3 MG TABLET PO PRN (10:00)
[2022-04-28] MEDS ORDERED: diphenhydrAMINE 25 MG TAB (BENADRYL) PO PRN (10:00)
[2022-04-28] MEDS ORDERED: ACETAMINOPHEN 325 MG TABLET PO PRN (10:00)
[2022-04-28] MEDS ORDERED: LACTULOSE SYRUP 10GM/15ML (ENULOSE) 30ML UDC PO PRN (10:00)
[2022-04-28] MEDS ORDERED: ONDANSETRON 4 MG (ZOFRAN) ORAL DISSOLVE TAB PO PRN (10:00)
--- NOTE | 2022-04-28 13:12 | Consultation-Cardiology ---
HPI-Cardiology Cardiology Consultation: Date of Consultation 04/28/22 Date of Admission 04/28/22 Attending Physician Joseph Kwok MD Admitting Physician Admitting Physician: Lee Ann Avila MD Attending Physician: Lee Ann Avila MD Consulting Physician JACQUES JENNINGS JR, MD HPI: Time Seen by a Provider: 13:12 Chief Complaint: REASON FOR CONSULTATION: Atrial fibrillation. The pleasure of seeing Sindy in the intensive care unit at [facility] in [place], [place] today. She has a history of paroxysmal atrial fibrillation with 2 previous ablations and follows with Dr. Sánchez at [facility]. Over the past several months, she has had at least 6 episodes of recurrent atrial fibrillation that have prompted her to come to the emergency room. She had seen Dr. Sánchez a few months ago and plans were in place for her to be admitted to to increase her dose of sotalol. However, last week she was in our hospital with recurrent atrial fibrillation and Dr. Pascual changed her sotalol from 80 mg twice daily to 120 mg twice daily but after just 2 or 3 doses, her QTc became prolonged up to 512 ms. At that point, the sotalol dose was reduced and she was discharged home. This morning she developed recurrent palpitations with the sensation of rapid heartbeats. This will make her feel lightheaded but she denies syncope. She denies any other associated complaints. Because of the ongoing palpitations, she came to the emergency room. She was again found to be in atrial fibrillation with a rapid ventricular rate. She was given 2 intravenous doses of diltiazem 10 mg and her heart rate slowed down but she did not convert. She was then admitted to the intensive care unit on a diltiazem infusion. Soon after she arrived in her room, she converted back to sinus rhythm. When I saw her, the palpitations had resolved. She denies chest discomfort, paroxysmal nocturnal dyspnea, orthopnea, syncope, or ankle edema. Because of the atrial fibrillation, a cardiology consultation was requested. Certain portions of this document may have been dictated utilizing voice recognition technology. Inherent to this technology, typographical and grammatical errors may exist. As much as I am diligent to identify and correct these mistakes, some errors may remain in the document. Review of Systems-Cardiology Review of Systems Other comments Review of 10 organ systems is as per the history of present illness, otherwise negative. All Other Systems Reviewed Negative Unless Noted: Yes [id number] Hx Patient Social History Former smoker/When Quit: Dec 06, 1995 Have you traveled recently?: No Alcohol Use?: No Substance type: Marijuana Pt feels they are or have been: No Immunizations Up To Date Date of Influenza Vaccine: Feb 21, 2022 Past Medical History PMH As described under Assessment. Family Medical History Family Medical History: The patient does not know of any family history of premature coronary artery disease in first-degree relatives. Allergies and Home Medications Allergies Coded Allergies: Penicillins (Verified Allergy, Severe, 04/21/22) HIVES OR SWELLING sulfamethoxazole (Unverified Allergy, Intermediate, HIVES, 12/08/14) trimethoprim (Unverified Allergy, Intermediate, HIVES, 12/08/14) amoxicillin (Unverified Allergy, Unknown, 12/08/14) doxycycline (Unverified Allergy, Unknown, 12/08/14) amiodarone (Verified Adverse Reaction, Severe, 04/21/22) PT STATES SHE FEELS LIKE SHE IS BEING ELECTROCUTED IN THE SHOULDERS & HIPS WHEN TAKING THIS MEDICATION. Patient Home Medication List Home Medication List Reviewed: Yes Acyclovir (Acyclovir) 400 Mg Tablet, 400 MG PO DAILY, (Reported) Entered as Reported by: JO MUNOZ on 04/21/22 1300 Last Action: Reviewed Apixaban (Eliquis) 5 Mg Tablet, 5 MG PO BID, (Reported) Entered as Reported by: JO MUNOZ on 04/21/22 1300 Last Action: Reviewed Aspirin (Aspirin EC) 81 Mg Tablet.dr, 81 MG PO DAILY, (Reported) Entered as Reported by: JO MUNOZ on 04/21/22 1300 Last Action: Reviewed Biotin (Biotin) 2,500 Mcg Capsule, 10,000 MCG PO DAILY, (Reported) Entered as Reported by: JO MUNOZ on 04/21/22 1300 Last Action: Reviewed Cetirizine HCl (Cetirizine HCl) 10 Mg Tablet, 10 MG PO DAILY, (Reported) Entered as Reported by: JO MUNOZ on 04/21/22 1300 Last Action: Reviewed Diltiazem HCl (Diltiazem 24Hr ER) 240 Mg Cap.er.24h, 240 MG PO DAILY Prescribed by: HENRI MACIEL on 04/22/22 0978 Last Action: Reviewed Diltiazem HCl (Diltiazem HCl) 60 Mg Tablet, 60 MG PO PRN PRN for SUPRAVENTRICULAR TACHYCARDIA Prescribed by: JENIFER IVAN on 04/28/22 1403 Furosemide (Furosemide) 20 Mg Tablet, 20 MG PO DAILY, (Reported) Entered as Reported by: JO MUNOZ on 04/21/22 1300 Last Action: Reviewed Glimepiride (Glimepiride) 2 Mg Tablet, 2 MG PO BID, (Reported) Entered as Reported by: JO MUNOZ on 04/21/221299 Last Action: Reviewed Glucosa Ruiz 2Kcl/Chondroitin Ruiz (Glucosamine & Chondroitin Cap) 500 Mg-400 Mg Capsule, 2 EACH PO DAILY, (Reported) Entered as Reported by: JO MUNOZ on 04/21/221299 Last Action: Reviewed L.acidoph & Paracasei,B.lactis (Probiotic) 10 Billion Cell Capsule, 1 EACH PO DAILY, (Reported) Entered as Reported by: JO MUNOZ on 04/21/221299 Last Action: Reviewed Lisinopril (Lisinopril) 5 Mg Tablet, 5 MG PO HS, (Reported) Entered as Reported by: JO MUNOZ on 04/21/221299 Last Action: Reviewed Magnesium Oxide (Magnesium Oxide) 400 Mg (241.3 Mg Magnesium) Tablet, 400 MG PO DAILY, (Reported) Entered as Reported by: JO MUNOZ on 04/21/221299 Last Action: Reviewed Metformin HCl (Metformin HCl) 1,000 Mg Tablet, 1,000 MG PO BID, (Reported) Entered as Reported by: JO MUNOZ on 04/21/221299 Last Action: Reviewed Multivitamin (Multivitamin) 1 Each Tablet, 1 EACH PO DAILY, (Reported) Entered as Reported by: JO MUNOZ on 04/21/221299 Last Action: Reviewed Omeprazole (Omeprazole) 20 Mg Tablet.dr, 20 MG PO DAILY, (Reported) Entered as Reported by: JO MUNOZ on 04/21/22 1334 Last Action: Reviewed Simvastatin (Simvastatin) 20 Mg Tablet, 20 MG PO HS, (Reported) Entered as Reported by: JO MUNOZ on 04/21/22 1300 Last Action: Reviewed Sotalol HCl (Sotalol) 80 Mg Tablet, 80 MG PO BID, (Reported) Entered as Reported by: JO MUNOZ on 04/21/22 1302 Last Action: Reviewed Spironolactone (Spironolactone) 25 Mg Tablet, 25 MG PO DAILY, (Reported) Entered as Reported by: JO MUNOZ on 04/21/22 1300 Last Action: Reviewed Discontinued Medications Clindamycin Hcl (Cleocin Hcl) 300 Mg Capsule, 1 EACH PO QID Discontinued Reason: No Longer Taking Prescribed by: MARGARITO TRAN on 12/08/142024 Metoprolol Succinate (Metoprolol Succinate) 25 Mg Tab.er.24h, 12.5 MG PO DAILY, (Reported) Entered as Reported by: JO MUNOZ on 04/21/22 1300 Sotalol HCl (Betapace AF) 80 Mg Tablet, 80 MG PO BID, (Reported) Discontinued Reason: Duplicate Order Entered as Reported by: JO MUNOZ on 04/21/22 1300 Exam Vital Signs Vital Signs Date Time Temp Pulse Resp B/P (MAP) Pulse Ox O2 Delivery O2 Flow Rate FiO2 04/28/22 14:33 04/28/22 14:00 75 20 98 Room Air 04/28/22 09:26 36.0 Physical Exam General: Alert. No acute distress. Well nourished and appears stated age. Eye: Extraocular movements are intact. Conjunctivae are clear. There are no xanthelasma. HENT: Normocephalic. Atraumatic. Carotid pulsations 2/2 without bruits. Neck: Jugular venous pressure does not appear elevated. No thyromegaly appreciated. Respiratory: Lungs are clear to auscultation. Respirations are non-labored. Breath sounds are equal. Symmetrical chest wall expansion. Cardiovascular: Normal rate. Regular rhythm. No murmur. No gallop. Point of maximal impulse is not appear displaced. Good pulses equal in all extremities. No edema. Gastrointestinal: Soft. Normal bowel sounds. Skin: Skin turgor is normal. There is no pallor. Musculoskeletal: No kyphosis or scoliosis appreciated. Neurologic: Alert and oriented to person, place, time. Cranial nerves 3-12 appear grossly intact. The patient has good motor tone strength in the upper and lower extremities bilaterally. Psychiatric: Cooperative. Appropriate mood & affect. Labs Laboratory Tests Test 04/28/22 06:40 Range/Units White Blood Count 11.4 H 4.3-11.0 10^3/uL Red Blood Count 5.18 H 3.80-5.11 10^6/uL Hemoglobin 12.4 # 11.5-16.0 g/dL Hematocrit 41 35-52 % Mean Corpuscular Volume 79 L 80-99 fL Mean Corpuscular Hemoglobin 24 L 25-34 pg Mean Corpuscular Hemoglobin Concent 30 L 32-36 g/dL Red Cell Distribution Width 15.5 H 10.0-14.5 % Platelet Count 390 130-400 10^3/uL Mean Platelet Volume 8.8 L 9.0-12.2 fL Immature Granulocyte % (Auto) 0 % Neutrophils (%) (Auto) 70 42-75 % Lymphocytes (%) (Auto) 22 12-44 % Monocytes (%) (Auto) 5 0-12 % Eosinophils (%) (Auto) 3 0-10 % Basophils (%) (Auto) 0 0-10 % Neutrophils # (Auto) 7.9 H 1.8-7.8 10^3/uL Lymphocytes # (Auto) 2.5 1.0-4.0 10^3/uL Monocytes # (Auto) 0.6 0.0-1.0 10^3/uL Eosinophils # (Auto) 0.3 0.0-0.3 10^3/uL Basophils # (Auto) 0.1 0.0-0.1 10^3/uL Immature Granulocyte # (Auto) 0.0 0.0-0.1 10^3/uL Sodium Level 140 135-145 MMOL/L Potassium Level 3.2 L 3.6-5.0 MMOL/L Chloride Level 101 98-107 MMOL/L Carbon Dioxide Level 26 21-32 MMOL/L Anion Gap 13 5-14 MMOL/L Blood Urea Nitrogen 9 7-18 MG/DL Creatinine 0.71 0.60-1.30 MG/DL Estimat Glomerular Filtration Rate 103 BUN/Creatinine Ratio 13 Glucose Level 156 H 70-105 MG/DL Calcium Level 9.7 8.5-10.1 MG/DL Magnesium Level 1.5 L 1.6-2.4 MG/DL ECG Impression ECG Comment Electrocardiogram from the emergency room showed atrial fibrillation with a rapid ventricular rate at 127 bpm with nonspecific intraventricular conduction delay, premature ventricular complexes versus aberrancy, poor R wave progression and nonspecific ST-T wave changes. Follow-up electrocardiogram from the ICU showed sinus rhythm with first-degree AV block, low voltage in the precordial leads, nonspecific intraventricular ventricular conduction delay and anterolateral ST-T wave changes, consider ischemia. Diagnosis/Problems Diagnosis/Problems (1) Paroxysmal atrial fibrillation Assessment & Plan: She has recurrent atrial fibrillation. She seems to be failing treatment with sotalol. Unclear whether or not she would be a candidate for a type Ic agent. She does have an sewer connector that which she follows with in [place] as outlined above. She is on diltiazem for rate control. She broke with intravenous diltiazem. She may need another ablation or a different antiarrhythmic drug. Since she already sees an sewer connector, I recommend we continue the current dose of sotalol. I will give her short acting diltiazem that she can use as needed at home if she has recurrent atrial fibrillation. I told her as long as she is feeling okay and only has palpitations with the atrial fibrillation, she does not necessarily need to come to the emergency room if she can get this to break with short acting diltiazem. She should continue on apixaban for stroke prophylaxis. I asked her to call her sewer connector and get an appointment as soon as arabella mccord. She did have plans to uptitrate her sotalol dosing in the near future but this was just tried last week and this resulted in QT prolongation so she had to go back on her previous dose of sotalol at 80 mg twice daily. For this reason, she may not be a good candidate for dofetilide. I would avoid using amiodarone in a patient this young. Her only other option might to be dronedarone. (2) Primary hypertension Assessment & Plan: Continue outpatient medication. (3) Mixed hyperlipidemia Assessment & Plan: Continue statin medication. (4) Type 2 diabetes mellitus with complication Assessment & Plan: This is being managed by the hospitalist. (5) Morbid obesity Assessment & Plan: She needs to work on weight loss. This may be contributing to the recurrent atrial fibrillation. JACQUES JENNINGS JR, MD Apr 28, 2022 13:12
[2022-04-28] MEDS ORDERED: DILT60TA PO (14:03)
[2022-04-28] MEDS ORDERED: SENNOSIDES 8.6 MG (SENOKOT) TAB PO SCH (21:00)
[2022-04-28] MEDS ORDERED: DOCUSATE SODIUM 100 MG (COLACE) CAP PO SCH (21:00)
[2022-04-28] MEDS ORDERED: APIXABAN 5 MG (ELIQUIS) TABLET PO SCH (21:00)
--- NOTE | 2022-05-21 13:15 | Discharge Summary ---
Discharge Summary Hospital Course Was the Problem List Reviewed?: Yes Problems/Dx: (1) Paroxysmal atrial fibrillation (2) Primary hypertension (3) Mixed hyperlipidemia (4) Type 2 diabetes mellitus with complication (5) Morbid obesity Hospital Course Date of Admission: Apr 28, 2022 at 09:26 Admission Diagnosis : AFib with RVR Family Physician/Provider: Joseph Kwok MD Date of Discharge: 04/28/22 Discharge Diagnosis: AFib with RVR Hospital Course: Sindy Prieto is a 51 year old female who was admitted with atrial fibrillation with rapid ventricular response. Cardiology was consulted and assisted with her care. She has a history of resistant AFib. She has had two ablations. She has been on Sotalol and Eliquis as an outpatient. She was started on a Cardizem drip. Her rates improved. She was resumed on Sotalol. She was given short acting Diltiazem as needed. She should follow up with her medical logistics specialist/sr. director. She was discharged home in stable condition. Labs and Pending Lab Test: Microbiology 04/28/22 MRSA Screen - Final, Complete MRSA not isolated Home Meds Active Diltiazem HCl 60 Mg Tablet 60 Mg PO PRN PRN 30 Days Reported Multaq (Dronedarone HCl) 400 Mg Tablet MED WAS PRESCRIBED BY KAELYN, HOWEVER SHE HAS NOT STARTED YET DUE TO MED NEEDING A PRIOR AUTHORIZATION PER INSURANCE. Advil Dual Action 250Mg-125Mg (Ibuprofen/Acetaminophen) 125 Mg-250 Mg Tablet 2 Each PO BID Diltiazem 24Hr ER (Diltiazem HCl) 240 Mg Cap.er.24h 240 Mg PO DAILY Omeprazole 20 Mg Tablet.dr 20 Mg PO DAILY Probiotic (L.acidoph & Paracasei,B.lactis) 10 Billion Cell Capsule 1 Each PO DAILY Multivitamin 1 Each Tablet 1 Each PO DAILY Cetirizine HCl 10 Mg Tablet 10 Mg PO DAILY Biotin 2,500 Mcg Capsule 10,000 Mcg PO DAILY TAKES 4 CAPS Glucosamine & Chondroitin Cap (Glucosa Ruiz 2Kcl/Chondroitin Ruiz) 500 Mg-400 Mg Capsule 2 Each PO DAILY Aspirin EC (Aspirin) 81 Mg Tablet.dr 81 Mg PO DAILY Furosemide 20 Mg Tablet 20 Mg PO DAILY Lisinopril 5 Mg Tablet 5 Mg PO HS Magnesium Oxide 400 Mg (241.3 Mg Magnesium) Tablet 400 Mg PO DAILY Simvastatin 20 Mg Tablet 20 Mg PO HS Spironolactone 25 Mg Tablet 25 Mg PO DAILY Eliquis (Apixaban) 5 Mg Tablet 5 Mg PO BID Metformin HCl 1,000 Mg Tablet 1,000 Mg PO BID Glimepiride 2 Mg Tablet 2 Mg PO BID Acyclovir 400 Mg Tablet 400 Mg PO DAILY Assessment/Pt Instructions See instructions Discharge Planning: <30 minutes discharge planning Discharge Instructions Discharge Diet: Low Sodium Diet Activity as Tolerated: Yes Consultations Cardiology Discharge Physical Examination Allergies: Coded Allergies: Penicillins (Verified Allergy, Severe, 04/21/22) HIVES OR SWELLING sulfamethoxazole (Unverified Allergy, Intermediate, HIVES, 12/08/14) trimethoprim (Unverified Allergy, Intermediate, HIVES, 12/08/14) amoxicillin (Unverified Allergy, Unknown, 12/08/14) doxycycline (Unverified Allergy, Unknown, 12/08/14) Discharge Summary Date of Admission Apr 28, 2022 at 09:26 Date of Discharge Apr 28, 2022 at 14:01 Discharge Date: Apr 28, 2022 Discharge Time: 14:01 Admission Diagnosis AFib with RVR Consults/Procedures Consulations Cardiology Discharge Diagnosis (1) Paroxysmal atrial fibrillation (2) Primary hypertension (3) Mixed hyperlipidemia (4) Type 2 diabetes mellitus with complication (5) Morbid obesity BALWINDER ALMARAZ MD May 21, 2022 13:01
== END 2022-04-28 14:01 | disposition home or self-care (01) ==
LOC: EDUNIT# 06:21 → ER 06:24 → ICU 08:13 → UNDOADMOB 08:13 → ICU 09:26 → UNDODISOB 14:30
PROVIDERS: ADMIT Internal Medicine; ATTEND Internal Medicine
DX: I48.0 Paroxysmal atrial fibrillation (principal); I10 Essential (primary) hypertension; E78.2 Mixed hyperlipidemia; E66.01 Morbid (severe) obesity due to excess calories; E11.8 Type 2 diabetes mellitus with unspecified complications; Z87.891 Personal history of nicotine dependence; Z68.42 Body mass index [BMI] 45.0-49.9, adult; Z79.82 Long term (current) use of aspirin; Z79.84 Long term (current) use of oral hypoglycemic drugs; Z79.899 Other long term (current) drug therapy
CPT/HCPCS: 80048; 83735; 85025; 87081; 93005; 96361; 96365; 96367; 99283; G0378; 36415

== ENCOUNTER 2022-05-06 11:37 | Observation (INO) | payer OTHER ==
[~2022-05-06] VITALS: Ht 177 cm; Wt 145.3 kg
[~2022-05-06 11:37] MED LIST changes: +DILT60TA PO
--- NOTE | 2022-05-06 13:01 | ED Cardiac General ---
History of Present Illness General Chief Complaint: Cardiac/General Problems Stated Complaint: AFIB | LIGHTHEADED Nursing Triage Note: PT HAS BEEN SEEN SEVERAL TIMES OVER THE LAST FEW WEEKS, WENT TO AND MED WAS CHANGED TUESDAY AND CAN'T START THE NEW ONE TILL TUESDAY, TUESDAY WAS IN A FIB, STATES SHE CAN'T CONVERT, LIGHTHEADED NOW BUT DOESN'T FEEL LIKE HEART IS RACING, HR 81 AT TRIAGE, EDEMA IN LOWER EXT History of Present Illness Date Seen by Provider: May 06, 2022 Time Seen by Provider: 12:56 Initial Comments Patient is a 51-year-old female with a history of intermittent atrial fibrillati on and recurrent A. fib with RVR, being managed by textile engineer. She is scheduled to start Multaq tomorrow, she stopped her sotalol about a week ago and they are waiting for that to "get out of her system". She states this morning she noticed that she started getting rapid feeling a little lightheaded having some vision disturbance. She does not feel her heart rate racing. She is a little short of breath with exertion. Complains of a little bit of swelling in her lower extremities. No chest pain. She has had a little bit of a cough in the mornings. She does not wear oxygen at home, she is not hypoxic. She is in no respiratory distress. She was recently in the hospital about a week ago with A. fib, RVR. She had an overnight stay on a Cardizem drip and converted spontaneously back to normal sinus. Offered her Cardizem drip versus electrical cardioversion. Her systolic blood pressure is 98 I am not sure that she would tolerate a Cardizem drip very well she has been taking high doses of Cardizem orally at home. Current rate is 130 a flutter with rapid ventricular response. All other review of systems reviewed and negative except as stated Timing/Duration: 1-3 hours Severity: moderate Prior CP/Workup: cardiac cath NTG SL ASSESSMENT ANALYST: No ASA po ASSESSMENT ANALYST: No Allergies and Home Medications Allergies Coded Allergies: Penicillins (Verified Allergy, Severe, 04/21/22) HIVES OR SWELLING sulfamethoxazole (Unverified Allergy, Intermediate, HIVES, 12/08/14) trimethoprim (Unverified Allergy, Intermediate, HIVES, 12/08/14) amoxicillin (Unverified Allergy, Unknown, 12/08/14) doxycycline (Unverified Allergy, Unknown, 12/08/14) Patient Home Medication List Home Medication List Reviewed: Yes Acyclovir (Acyclovir) 400 Mg Tablet, 400 MG PO DAILY, (Reported) Entered as Reported by: JO MUNOZ on 04/21/22 1300 Apixaban (Eliquis) 5 Mg Tablet, 5 MG PO BID, (Reported) Entered as Reported by: JO MUNOZ on 04/21/22 1300 Aspirin (Aspirin EC) 81 Mg Tablet.dr, 81 MG PO DAILY, (Reported) Entered as Reported by: JO MUNOZ on 04/21/22 1300 Biotin (Biotin) 2,500 Mcg Capsule, 10,000 MCG PO DAILY, (Reported) Entered as Reported by: JO MUNOZ on 04/21/22 1300 Cetirizine HCl (Cetirizine HCl) 10 Mg Tablet, 10 MG PO DAILY, (Reported) Entered as Reported by: JO MUNOZ on 04/21/22 1300 Diltiazem HCl (Diltiazem 24Hr ER) 240 Mg Cap.er.24h, 240 MG PO DAILY Prescribed by: HENRI MACIEL on 04/22/22 0951 Diltiazem HCl (Diltiazem HCl) 60 Mg Tablet, 60 MG PO PRN PRN for SUPR AVENTRICULAR TACHYCARDIA Prescribed by: JENIFER IVAN on 04/28/22 1403 Furosemide (Furosemide) 20 Mg Tablet, 20 MG PO DAILY, (Reported) Entered as Reported by: JO MUNOZ on 04/21/22 1300 Glimepiride (Glimepiride) 2 Mg Tablet, 2 MG PO BID, (Reported) Entered as Reported by: JO MUNOZ on 04/21/22 1300 Glucosa Ruiz 2Kcl/Chondroitin Ruiz (Glucosamine & Chondroitin Cap) 500 Mg-400 Mg Capsule, 2 EACH PO DAILY, (Reported) Entered as Reported by: JO MUNOZ on 04/21/22 1300 L.acidoph & Paracasei,B.lactis (Probiotic) 10 Billion Cell Capsule, 1 EACH PO DAILY, (Reported) Entered as Reported by: JO MUNOZ on 04/21/22 1300 Lisinopril (Lisinopril) 5 Mg Tablet, 5 MG PO HS, (Reported) Entered as Reported by: JO MUNOZ on 04/21/22 1300 Magnesium Oxide (Magnesium Oxide) 400 Mg (241.3 Mg Magnesium) Tablet, 400 MG PO DAILY, (Reported) Entered as Reported by: JO MUNOZ on 04/21/22 1300 Metformin HCl (Metformin HCl) 1,000 Mg Tablet, 1,000 MG PO BID, (Reported) Entered as Reported by: JO MUNOZ on 04/21/22 1300 Multivitamin (Multivitamin) 1 Each Tablet, 1 EACH PO DAILY, (Reported) Entered as Reported by: JO MUNOZ on 04/21/22 1300 Omeprazole (Omeprazole) 20 Mg Tablet.dr, 20 MG PO DAILY, (Reported) Entered as Reported by: JO MUNOZ on 04/21/22 1334 Simvastatin (Simvastatin) 20 Mg Tablet, 20 MG PO HS, (Reported) Entered as Reported by: JO MUNOZ on 04/21/22 1300 Sotalol HCl (Sotalol) 80 Mg Tablet, 80 MG PO BID, (Reported) Entered as Reported by: JO MUNOZ on 04/21/22 1302 Spironolactone (Spironolactone) 25 Mg Tablet, 25 MG PO DAILY, (Reported) Entered as Reported by: JO MUNOZ on 04/21/22 1300 Review of Systems Review of Systems Constitutional: see HPI EENTM: No Symptoms Reported Respiratory: SOA With Exertion (mild) Cardiovascular: Irregular Heart Rate Gastrointestinal: No Symptoms Reported Genitourinary: No Symptoms Reported Musculoskeletal: no symptoms reported Skin: no symptoms reported Psychiatric/Neurological: Other (vision "off" at the periphery) All Other Systems Reviewed Negative Unless Noted: Yes Past Eymqcxz-Ywfzok-Aqcxgr Hx Patient Social History Tobacco Use?: Yes Smoking Status: Former Smoker Substance use?: No Alcohol Use?: No Immunizations Up To Date First/Initial COVID19 Vaccinat: UNKNOWN Second COVID19 Vaccination Miguel: UNKNOWN Third COVID19 Vaccination Date: UNKNOWN Past Medical History Surgery/Hospitalization HX: A FIB, CHF, ASD SURGERY, DIABETIC TYPE II, Surgeries: Yes Cardiac, Gallbladder Respiratory: No Cardiac: Yes Atrial Fibrillation, Irregular Heartbeat, Palpitations Neurological: No Reproductive Disorders: No Sexually Transmitted Disease: No Family Medical History No Pertinent Family Hx Physical Exam Vital Signs Vital Signs - First Documented 05/06/22 11:57 Temp 37.0 Pulse 81 Resp 18 B/P (MAP) 97/65 (76) Pulse Ox 97 O2 Delivery Room Air Capillary Refill : Less Than 3 Seconds Height, Weight, BMI Height: 5'10" Weight: 320lbs. oz. 145.732850qf; 45.00 BMI Method:Stated General Appearance: No Apparent Distress, WD/WN HEENT: PERRL/EOMI Neck: Normal Inspection Respiratory: Lungs Clear, Normal Breath Sounds, No Accessory Muscle Use, No Respiratory Distress Cardiovascular: Irregularly Irregular, Tachycardia (130), Other (trace edema bilateral LE) Gastrointestinal: Non Tender, Soft Extremity: Normal Inspection, Normal Range of Motion, Non Tender Neurologic/Psychiatric: Alert, Oriented x3, No Motor/Sensory Deficits, Normal Mood/Affect Skin: Normal Color, Warm/Dry Procedures/Interventions Patient Education: Explained Benefits Progress/Results/Core Measures Results/Orders Lab Results Laboratory Tests Test 05/06/22 13:40 Range/Units White Blood Count 11.0 4.3-11.0 10^3/uL Red Blood Count 5.15 H 3.80-5.11 10^6/uL Hemoglobin 12.3 11.5-16.0 g/dL Hematocrit 41 35-52 % Mean Corpuscular Volume 79 L 80-99 fL Mean Corpuscular Hemoglobin 24 L 25-34 pg Mean Corpuscular Hemoglobin Concent 30 L 32-36 g/dL Red Cell Distribution Width 15.9 H 10.0-14.5 % Platelet Count 433 H 130-400 10^3/uL Mean Platelet Volume 8.7 L 9.0-12.2 fL Immature Granulocyte % (Auto) 0 % Neutrophils (%) (Auto) 63 42-75 % Lymphocytes (%) (Auto) 26 12-44 % Monocytes (%) (Auto) 8 0-12 % Eosinophils (%) (Auto) 2 0-10 % Basophils (%) (Auto) 1 0-10 % Neutrophils # (Auto) 7.0 1.8-7.8 10^3/uL Lymphocytes # (Auto) 2.9 1.0-4.0 10^3/uL Monocytes # (Auto) 0.8 0.0-1.0 10^3/uL Eosinophils # (Auto) 0.2 0.0-0.3 10^3/uL Basophils # (Auto) 0.1 0.0-0.1 10^3/uL Immature Granulocyte # (Auto) 0.0 0.0-0.1 10^3/uL Sodium Level 139 135-145 MMOL/L Potassium Level 3.3 L 3.6-5.0 MMOL/L Chloride Level 103 98-107 MMOL/L Carbon Dioxide Level 24 21-32 MMOL/L Anion Gap 12 5-14 MMOL/L Blood Urea Nitrogen 13 7-18 MG/DL Creatinine 0.75 0.60-1.30 MG/DL Estimat Glomerular Filtration Rate 96 BUN/Creatinine Ratio 17 Glucose Level 98 70-105 MG/DL Calcium Level 9.5 8.5-10.1 MG/DL My Orders Orders - YECENIA HAN MD Ekg Tracing (05/06/22 12:54) Ekg Tracing (05/06/22 12:54) Ed Iv/Invasive Line Start (05/06/22 13:22) Cbc With Automated Diff (05/06/22 13:22) Basic Metabolic Panel (05/06/22 13:22) Etomidate Injection (Amidate Injection) (05/06/22 14:15) Ns Iv 1000 Ml (Sodium Chloride 0.9%) (05/06/22 14:45) Ns Iv 1000 Ml (Sodium Chloride 0.9%) (05/06/22 14:40) Ns Iv 1000 Ml (Sodium Chloride 0.9%) (05/06/22 14:59) Amiodarone For Bolus (Cordarone Bolus) (05/06/22 16:00) Dronedarone Tablet (Multaq Tablet) (05/06/22 15:57) Cho 60g/M 1snack (16-2000 Jalen) (05/06/22 Dinner) Ed Admission (Communication) (05/06/22 16:04) Medications Given in ED Current Medications Medications Dose Ordered Sig/Tanisha Route Start Time Stop Time Status Last Admin Dose Admin Amiodarone HCl 150 mg/Sodium Chloride 103 ml @ 600 mls/hr ONCE ONCE IV 05/06/22 16:00 05/06/22 16:10 DC 05/06/22 16:16 600 MLS/HR Etomidate 20 mg ONCE ONCE IV 05/06/22 14:15 05/06/22 14:16 DC 05/06/22 14:34 20 MG Vital Signs/I&O 1205/06/22 05/06/22 05/06/22 11:57 14:34 14:40 16:16 Temp 37.0 Pulse 81 135 158 Resp 18 B/P (MAP) 97/65 (76) 116/87 Pulse Ox 97 O2 Delivery Room Air Room Air Blood Pressure Mean: 76 Admisison Planning May Need Admission (Planning): 14:59 Progress Progress Note #1: Time: 14:56 Progress Note Patient seen and examined, 51-year-old with intermittent A. fib currently on Cardizem 240 in the morning and 60 at night. Recently off sotalol on Tuesday in order to start Multaq on Tuesday of this week, tomorrow. She has been trying to manage her A. fib at home but became so symptomatic today she finally came in. Basic laboratory studies reviewed, within normal limits. Offered the patient Cardizem drip versus electrical cardioversion. She was quite tacky with a systolic blood pressure 95 so I did not believe I had much room in blood pressure management with the Cardizem drip and the patient elected electrical cardioversion so that she could potentially go home this afternoon. She was consented, respiratory therapy in the room, 20 mg of etomidate administered and after appropriate sedation the patient was cardioverted with 120 J. X2. She became hypotensive in the 70s/80s. Heart rate bounced back up to the 140s. Cardioversion NOT successful. I called Dr. Sinclair, he initially recommended amnio bolus of 150 however the patient is allergic. He will come to the emergency room to evaluate. Progress Note #2: Time: 15:[address] Sinclair has seen and evaluated the patient here in the ED. He states he would like to give her the Amiodarone bolus of 150 and start her Multaq (400mg). Will admit to ICU. Under hospitalist. Initial ECG Impression Date: May 06, 2022 Initial ECG Impression Time: 12:58 Initial ECG Rhythm: A Fib/Flutter Comment Aflutter RVR at 128; inv t waves V3-V6 EKG #1: EKG Time: 14:48 Rate: 120 Rhythm: A Fib/Flutter ECG Comparisson: Unchanged ECG Impression: Atrial Fibrillation w/RVR EKG #2: EKG Time: 16:13 Rate: 157 Rhythm: A Fib/Flutter ECG Comparisson: Unchanged ECG Impression: Atrial Fibrillation w/RVR Critical Care Note Critical Care Start Time: 12:56 Stop Time: 16:00 Total Time (minutes) 45 minutes of critical care time totaling the evaluation and management of this 51-year-old with intractable atrial fibrillation and A. fib with RVR. Time includes initial evaluation, review of prior admissions. Discussion with carbon setter. Review of laboratory studies. Reassessments after procedural sedation and discussion again with cardiology. Time does not include that spent on the procedure of electrical cardioversion. Departure Communication (Admissions) Time/Spoke to Consulting Phy: 14:[address] Sinclair - Impression Primary Impression: Atrial fibrillation with rapid ventricular response Additional Impression: Chronic anticoagulation Disposition: ADMITTED INPATIENT Condition: Stable Admissions Decision to Admit Reason: Admit from ER (General) Decision to Admit/Date: May 06, 2022 Time/Decision to Admit Time: 15:59 Departure-Patient Inst. Referrals: BARBRA SHERIFF MD (PCP/Family) Primary Care Physician Patient Instructions: Atrial Fibrillation and Atrial Flutter ED Add. Discharge Instructions: Keep taking your prescribed medications as directed. Please keep your follow-up appointment with your [employer] textile engineer. Return to the emergency department for any new, concerning or emergent complaints. Copy Copies To 1: BARBRA SHERIFF MD, KATHRYN M MD May 06, 2022 13:01
[2022-05-06 13:47] LABS: BASOPHILS # (AUTO) 0.1 10^3/uL (0.0-0.1); BASOPHILS % (AUTO) 1 % (0-10); EOSINOPHILS # (AUTO) 0.2 10^3/uL (0.0-0.3); EOSINOPHILS % (AUTO) 2 % (0-10); HEMATOCRIT 41 % (35-52); HEMOGLOBIN 12.3 g/dL (11.5-16.0); LYMPHOCYTES # (AUTO) 2.9 10^3/uL (1.0-4.0); LYMPHOCYTES % (AUTO) 26 % (12-44); MEAN CORPUSCULAR HEMOGLOBIN 24 pg (25-34); MEAN CORPUSCULAR HGB CONC 30 g/dL (32-36); MEAN CORPUSCULAR VOLUME 79 fL (80-99); MEAN PLATELET VOLUME 8.7 fL (9.0-12.2); MONOCYTES # (AUTO) 0.8 10^3/uL (0.0-1.0); MONOCYTES % (AUTO) 8 % (0-12); NEUTROPHILS % (AUTO) 63 % (42-75); PLATELET COUNT 433 10^3/uL (130-400)
[2022-05-06 14:02] LABS: CALCIUM 9.5 MG/DL (8.5-10.1); CREATININE SERUM 0.75 MG/DL (0.60-1.30); POTASSIUM 3.3 MMOL/L (3.6-5.0)
[2022-05-06] MEDS ORDERED: ETOMIDATE IV SOLN 20 MG/10 ML VIAL IV ONE (14:15)
[2022-05-06] MEDS ORDERED: NS IV 1000 ML 1,000 ML ONE (14:40)
[2022-05-06] MEDS ORDERED: NS IV 1000 ML 1,000 ML IV SCH ×2 (14:45→19:30)
[2022-05-06] MEDS ORDERED: NS IV 1000 ML 1,000 ML IV STA (14:59)
[2022-05-06] MEDS ORDERED: DRONEDARONE 400 MG TABLET PO STA (15:57)
[2022-05-06] MEDS ORDERED: AMIODARONE FOR BOLUS 150 MG in NS (IVPB) 100 ML IV ONE (16:00)
--- NOTE | 2022-05-06 16:04 | Consultation-Cardiology ---
HPI-Cardiology Cardiology Consultation Date of Consultation 05/06/22 Date of Admission Time Seen by Provider: 16:00 Indication: Tachycardia HPI 51-year-old lady with paroxysmal atrial fibrillation, following with Dr. Nath. Patient has failed multiple treatment. She was being switched from sotalol to Multaq, she was instructed on stopping sotalol earlier this week, the next day of stopping the medication she started to be in atrial fibrillation with rapid ventricular response, try to control her rate with Cardizem without success. Came into the emergency room and noted to be in atrial fibrillation with rapid ventricular response, having palpitation with a heart rate around 1 20-1 50. No chest pain. No syncope. Home Medications & Allergies Allergies: Coded Allergies: Penicillins (Verified Allergy, Severe, 04/21/22) HIVES OR SWELLING sulfamethoxazole (Unverified Allergy, Intermediate, HIVES, 12/08/14) trimethoprim (Unverified Allergy, Intermediate, HIVES, 12/08/14) amoxicillin (Unverified Allergy, Unknown, 12/08/14) doxycycline (Unverified Allergy, Unknown, 12/08/14) Home Medication List Reviewed: Yes JLG-[id number]-Llcnqw Hx Patient Social History Smoking Status: Former Smoker Former smoker/When Quit: Dec 06, 1995 Have you traveled recently?: No Alcohol Use?: No Immunizations Up To Date Date of Influenza Vaccine: Feb 21, 2022 Past Medical History Discussed below Family Medical History Significant Family History: No Pertinent Family Hx Review of Systems-General Review of Systems Constitutional: see HPI EENTM: see HPI, no symptoms reported Respiratory: no symptoms reported, see HPI Cardiovascular: see HPI; No chest pain, No edema, No Hx of Intervention; palpitations; No syncope, No vascular heart diseas, No other Gastrointestinal: no symptoms reported, see HPI Genitourinary: no symptoms reported, see HPI Musculoskeletal: no symptoms reported Skin: no symptoms reported Psychiatric/Neurological: Other (vision "off" at the periphery) All Other Systems Reviewed Negative Unless Noted: Yes Reviewed Test Results Reviewed Test Results Lab Laboratory Tests Test 05/06/22 13:40 Range/Units White Blood Count 11.0 4.3-11.0 10^3/uL Red Blood Count 5.15 H 3.80-5.11 10^6/uL Hemoglobin 12.3 11.5-16.0 g/dL Hematocrit 41 35-52 % Mean Corpuscular Volume 79 L 80-99 fL Mean Corpuscular Hemoglobin 24 L 25-34 pg Mean Corpuscular Hemoglobin Concent 30 L 32-36 g/dL Red Cell Distribution Width 15.9 H 10.0-14.5 % Platelet Count 433 H 130-400 10^3/uL Mean Platelet Volume 8.7 L 9.0-12.2 fL Immature Granulocyte % (Auto) 0 % Neutrophils (%) (Auto) 63 42-75 % Lymphocytes (%) (Auto) 26 12-44 % Monocytes (%) (Auto) 8 0-12 % Eosinophils (%) (Auto) 2 0-10 % Basophils (%) (Auto) 1 0-10 % Neutrophils # (Auto) 7.0 1.8-7.8 10^3/uL Lymphocytes # (Auto) 2.9 1.0-4.0 10^3/uL Monocytes # (Auto) 0.8 0.0-1.0 10^3/uL Eosinophils # (Auto) 0.2 0.0-0.3 10^3/uL Basophils # (Auto) 0.1 0.0-0.1 10^3/uL Immature Granulocyte # (Auto) 0.0 0.0-0.1 10^3/uL Sodium Level 139 135-145 MMOL/L Potassium Level 3.3 L 3.6-5.0 MMOL/L Chloride Level 103 98-107 MMOL/L Carbon Dioxide Level 24 21-32 MMOL/L Anion Gap 12 5-14 MMOL/L Blood Urea Nitrogen 13 7-18 MG/DL Creatinine 0.75 0.60-1.30 MG/DL Estimat Glomerular Filtration Rate 96 BUN/Creatinine Ratio 17 Glucose Level 98 70-105 MG/DL Calcium Level 9.5 8.5-10.1 MG/DL Physical Exam Physical Exam Vital Signs Vital Signs - First Documented 05/06/22 11:57 Temp 37.0 Pulse 81 Resp 18 B/P (MAP) 97/65 (76) Pulse Ox 97 O2 Delivery Room Air Capillary Refill : Less Than 3 Seconds Height, Weight, BMI Height: 5'10" Weight: 320lbs. oz. 145.180625cw; 45.00 BMI Method:Stated General Appearance: No Apparent Distress, WD/WN HEENT: PERRL/EOMI Neck: Normal Inspection Respiratory: Lungs Clear, Normal Breath Sounds, No Accessory Muscle Use, No Respiratory Distress Cardiovascular: Irregularly Irregular, Tachycardia (130), Other (trace edema bilateral LE) Gastrointestinal: Non Tender, Soft Extremity: Normal Inspection, Normal Range of Motion, Non Tender Neurologic/Psychiatric: Alert, Oriented x3, No Motor/Sensory Deficits, Normal Mood/Affect Skin: Normal Color, Warm/Dry A/P-Cardiology Admission Diagnosis Atrial fibrillation Tachycardia Hypotension Hyperlipidemia Assessment/Plan Atrial fibrillation/flutter with rapid ventricular response, heart rate around 150 Failed to attempt for cardioversion in the emergency room today Borderline hypotensive Started on IV fluid I will give her a bolus of amiodarone IV and restart the oral Multaq Possible cardioversion tomorrow morning Borderline hypotension, currently blood pressure is stable. History of hypertension. Receiving IV fluid. Continue to monitor Hyperlipidemia, monitor lipids Morbid obesity, BMI 45, patient is scheduled for sleep study Diabetes mellitus, followed and managed by primary care physician Clinical Quality Measures AMI/AHF: ASA po Prior to arrival: PENELOPE Artis MD May 06, 2022 16:04
[2022-05-06] MEDS ORDERED: MAGNESIUM 1 GM/100 ML IVPB 100 ML IV ONE (16:15)
[2022-05-06] MEDS ORDERED: ONDANSETRON 4 MG/2 ML (SDV) Z0FRAN IV PRN (18:15)
[2022-05-06] MEDS ORDERED: AMIODARONE INJECTION 450 MG in NORMAL SALINE 250 ML IV SCH (18:15)
[2022-05-06] MEDS ORDERED: CALCIUM CARBONATE 500 MG (TUMS) TAB.CHEW PO PRN (18:15)
[2022-05-06] MEDS ORDERED: ANTACID SUSP 30 ML UDC (MYLANTA) PO PRN (18:15)
[2022-05-06] MEDS ORDERED: polyethylene glycoL POWDER 17 GM (MIRALAX) PACK PO PRN (18:15)
[2022-05-06] MEDS ORDERED: MELATONIN 3 MG TABLET PO PRN (18:15)
[2022-05-06] MEDS: POTASSIUM CL 10MEQ/50ML IVPB 50 ML IV SCH ×2 (18:55→20:25)
[2022-05-06] MEDS ORDERED: dilTIAZem DRIP PRE-MIX 125 ML IV SCH (19:15)
[2022-05-06 20:25] VITALS: BP 109/62
[2022-05-06] MEDS: DRONEDARONE 400 MG TABLET PO SCH (20:56)
[2022-05-07 05:11] LABS: HEMATOCRIT 36 % (35-52); HEMOGLOBIN 10.8 g/dL (11.5-16.0); MEAN CORPUSCULAR HEMOGLOBIN 24 pg (25-34); MEAN CORPUSCULAR HGB CONC 30 g/dL (32-36); MEAN CORPUSCULAR VOLUME 79 fL (80-99); MEAN PLATELET VOLUME 9.2 fL (9.0-12.2); PLATELET COUNT 342 10^3/uL (130-400); WHITE BLOOD COUNT 9.2 10^3/uL (4.3-11.0)
[2022-05-07 05:25] LABS: CALCIUM 8.6 MG/DL (8.5-10.1); CREATININE SERUM 0.7 MG/DL (0.60-1.30); POTASSIUM 3.4 MMOL/L (3.6-5.0)
[2022-05-07] MEDS ORDERED: NS IV 500 ML 500 ML ONE (05:44)
[2022-05-07] MEDS ORDERED: NS IV 500 ML 500 ML IV PRN (05:45)
[2022-05-07] MEDS ORDERED: NS IV 500 ML 500 ML IV SCH (05:45)
[2022-05-07] MEDS: POTASSIUM CL 10MEQ/50ML IVPB 50 ML IV SCH ×3 (05:46→12:30)
[2022-05-07] MEDS ORDERED: KCL 20 MEQ TAB (K-DUR) PO SCH (06:00)
[2022-05-07] MEDS ORDERED: POTASSIUM CL 10MEQ/50ML IVPB 50 ML IV SCH (06:00)
[2022-05-07] MEDS ORDERED: MAGNESIUM 1 GM/100 ML IVPB 100 ML IV SCH (06:00)
--- NOTE | 2022-05-07 09:25 | Cardiac Procedure Note-CS/ASA ---
Pre-Procedure Note Pre-Op Procedure Note Date of Available H&P: May 07, 2022 Date H&P Reviewed: May 07, 2022 Time H&P Reviewed: 09:25 History & Physical: H&P Reviewed, Patient Examed, No changes noted Pre-Operative Diagnosis: Atrial flutter Conscious Sedation Pre-Proced Time 09:25 ASA Score 3 For ASA 3 and 4: Consider anesthesia and medical clearance. Also, for patients with a history of failed moderate sedation consider anesthesia. Airway Lungs Heart ASA score ASA 1: a normal healthy patient ASA 2: a patient with a mild systemic disease (mid diabetes, controlled hypertension, obesity ASA 3: a patient with a severe systemic disease that limits activity (angina, COPD, prior Myocardial infarction) ASA 4: a patient with an incapacitating disease that is a constant threat to life (CHF, renal failure) ASA 5: a moribund patient not expected to survive 24 hrs. (ruptured aneurysm) ASA 6: a declared brain- patient whose organs are being harvested. For emergent operations, add the letter E after the classification Mallampati Classification Grade 3 Sedation Plan Analgesia, Amnesia, Plan communicated to team members, Discussed options with patient/fam, Discussed risks with patient/fam The patient is an appropriate candidate to undergo the planned procedure, sedation, and anesthesia. The patient immediately re-assessed prior to indication. PENELOPE FRANK MD May 07, 2022 09:25
--- NOTE | 2022-05-07 09:25 | Cardiology Progress Note ---
Subjective Date Seen by Provider: May 07, 2022 Time Seen by Provider: 09:24 Subjective/Events-last exam Patient was seen at bedside, laying down comfortably, still tachycardic, in atrial flutter with rapid ventricular response Review of Systems General: No Chills, No Night Sweats, No Fatigue, No Malaise, No Appetite, No Other HEENT: No Head Aches, No Visual Changes, No Eye Pain, No Ear Pain, No Dysphasia, No Sinus Congestion, No Post Nasal Drip, No Sore Throat, No Other Pulmonary: No Dyspnea, No Cough, No Pleuritic Chest Pain, No Other Cardiovascular: Palpitations; No: Chest Pain, Orthopnea, Paroxysmal Noc. Dyspnea, Edema, Lt Headedness, Other Objective-Cardiology Exam Last Set of Vital Signs Vital Signs 05/07/22 05/07/22 07:31 08:00 Temp 36.7 Pulse 134 Resp 23 B/P (MAP) 128/92 (104) Pulse Ox 96 O2 Delivery Room Air I&O Intake and Output 05/07/22 00:00 Intake Total 3650 ml Balance 3650 ml Intake Oral 450 ml IV Total 3200 ml # Voids 4 Daily Weight Change Unsure General: Alert, Oriented X3, Cooperative HEENT: Atraumatic, PERRLA Neck: Supple, No JVD, No Thyromegaly Lungs: Clear to Auscultation, Normal Air Movement Heart: Normal S1, Normal S2, No Murmurs, Other (Tachycardia) Abdomen: Normal Bowel Sounds, Soft, No Tenderness, No Hepatosplenomegaly, No Masses Extremities: No Clubbing, No Cyanosis, No Edema, Normal Pulses, No Tenderness/Swelling Skin: No Rashes, No Breakdown, No Significant Lesion Neuro: Normal Gait, Normal Speech, Strength at 5/5 X4 Ext, Normal Tone, Sensation Intact Psych/Mental Status: Mental Status NL, Mood NL Results Lab Laboratory Tests 05/06/22 13:40 05/07/22 04:45 A/P-Cardiology Admission Diagnosis Atrial fibrillation Tachycardia Hypotension Hyperlipidemia Assessment/Plan Atrial fibrillation/flutter with rapid ventricular response, heart rate around 150 Failed to attempt for cardioversion in the emergency room today Currently received amiodarone bolus and started on Multaq as per her initial plan with her it security consulting director I started Cardizem drip, heart rate is still borderline tachycardic I am planning to attempt another cardioversion today. Hypokalemia, received potassium, monitor electrolytes Borderline hypotension, currently blood pressure is stable. History of hypertension. Receiving IV fluid. Continue to monitor Hyperlipidemia, monitor lipids Morbid obesity, BMI 45, patient is scheduled for sleep study Diabetes mellitus, followed and managed by primary care physician PENELOPE FRANK MD May 07, 2022 09:25
--- NOTE | 2022-05-07 09:38 | Tele-ICU Progress Note ---
Progress Note Video assessment done , Hemodynamically stable Available charting reviewed, discussed with RN NO TELE-ICU CONSULT REQUESTED CONTINUE TO MONITOR PER USUAL TELE-ICU PROTOCOL No need for Tele-ICU interventions Plans as delineated by bedside physicians / consultants Focused Exam Height, Weight, BMI Height: 5'10" Weight: 320lbs. oz. 145.754733um; 46.37 BMI Method:Stated NISHA PEARCE MD May 07, 2022 09:38
[2022-05-07] MEDS ORDERED: ADENOSINE 6 MG/2 ML (ADENOCARD) VIAL IV ONE (09:46)
[2022-05-07] MEDS ORDERED: proPOfol 200 MG/20 ML (DIPRIVAN) VIAL IV ONE (09:47)
[2022-05-07] MEDS ORDERED: MIDAZOLAM 2 MG/2 ML (VERSED) VIAL ONE (09:47)
--- NOTE | 2022-05-07 09:47 | History & Physical ---
ALEE PACHECO 05/07/22 0947: History of Present Illness History of Present Illness Reason for visit/HPI Ms. Prieto is a 51 year old female with a PMHx of intermittent atrial fibrillation with RVR, CHF, and type 2 diabetes mellitus who presented on 05/06 to the [facility] ED with heart palpitations, racing HR, dizziness, and general malaise. Patient states on Thursday 05/03 she discontinued sotalol 80mg PO BID as instructed per her insole rasper prior to starting Multaq therapy planned for 05/07. Patient states on 05/04 in the morning she began to experience heart palpitations. Patient continued her diltiazem throughout the week for a fib management. Patient states her symptoms continued to worsen despite diltiazem therapy. Patient elected to be seen in the ED due to no symptom improvement and associated symptoms of dizziness and general malaise. In the ED the patient was experiencing hypotension thus electro-cardioversion was elected vs. initiating a diltiazem drip. Cardioversion failed and Dr. Sinclair was consulted. An amiodarone bolus of 150mg was initiated in the ED as well as Multaq 400mg. Patient was admitted to the ICU by Hospitalist service for medical management with Cardiology. Patient reports that she is feeling well this morning but is still experiencing heart palpitations. Patient has tolerated Multaq therapy thus far. Patient tolerated electrocardioversion with Dr. Sinclair this morning and is currently in sinus rhythm. Patient is safe to discharge home; patient expresses desire to go home today with no concerns. Date of Admission May 06, 2022 at 16:04 Date Seen by a Provider: May 07, 2022 Time Seen by a Provider: 08:00 I consulted on this patient on 05/07/22 09:35 Attending Physician Joseph Kwok MD Admitting Physician Admitting Physician: Zoya Iraheta MD Attending Physician: Zoya Iraheta MD Consult Allergies and Home Medications Allergies Coded Allergies: Penicillins (Verified Allergy, Severe, 04/21/22) HIVES OR SWELLING sulfamethoxazole (Unverified Allergy, Intermediate, HIVES, 12/08/14) trimethoprim (Unverified Allergy, Intermediate, HIVES, 12/08/14) amoxicillin (Unverified Allergy, Unknown, 12/08/14) doxycycline (Unverified Allergy, Unknown, 12/08/14) Patient Home Medication List Home Medication List Reviewed: Yes Acyclovir (Acyclovir) 400 Mg Tablet, 400 MG PO DAILY, (Reported) Entered as Reported by: JO MUNOZ on 04/21/22 1300 Last Action: Reviewed Apixaban (Eliquis) 5 Mg Tablet, 5 MG PO BID, (Reported) Entered as Reported by: JO MUNOZ on 04/21/22 1300 Last Action: Reviewed Aspirin (Aspirin EC) 81 Mg Tablet.dr, 81 MG PO DAILY, (Reported) Entered as Reported by: JO MUNOZ on 04/21/221299 Last Action: Reviewed Biotin (Biotin) 2,500 Mcg Capsule, 10,000 MCG PO DAILY, (Reported) Entered as Reported by: JO MUNOZ on 04/21/221299 Last Action: Reviewed Cetirizine HCl (Cetirizine HCl) 10 Mg Tablet, 10 MG PO DAILY, (Reported) Entered as Reported by: JO MUNOZ on 04/21/221299 Last Action: Reviewed Diltiazem HCl (Diltiazem HCl) 60 Mg Tablet, 60 MG PO PRN PRN for SUPR AVENTRICULAR TACHYCARDIA Prescribed by: JENIFER IVAN on 04/28/22 1403 Last Action: Reviewed Diltiazem HCl (Diltiazem 24Hr ER) 240 Mg Cap.er.24h, 240 MG PO DAILY, (Reported) Entered as Reported by: JO MUNOZ on 05/07/22 1018 Last Action: Continued Dronedarone HCl (Multaq) 400 Mg Tablet, (Reported) Entered as Reported by: JO MUNOZ on 05/07/22 1018 Last Action: Reviewed Furosemide (Furosemide) 20 Mg Tablet, 20 MG PO DAILY, (Reported) Entered as Reported by: JO MUNOZ on 04/21/22 1300 Last Action: Reviewed Glimepiride (Glimepiride) 2 Mg Tablet, 2 MG PO BID, (Reported) Entered as Reported by: JO MUNOZ on 04/21/22 1300 Last Action: Reviewed Glucosa Ruiz 2Kcl/Chondroitin Ruiz (Glucosamine & Chondroitin Cap) 500 Mg-400 Mg Capsule, 2 EACH PO DAILY, (Reported) Entered as Reported by: JO MUNOZ on 04/21/22 1300 Last Action: Reviewed Ibuprofen/Acetaminophen (Advil Dual Action 250Mg-125Mg) 125 Mg-250 Mg Tablet, 2 EACH PO BID, (Reported) Entered as Reported by: JO MUNOZ on 05/07/22 1018 Last Action: Reviewed L.acidoph & Paracasei,B.lactis (Probiotic) 10 Billion Cell Capsule, 1 EACH PO DAILY, (Reported) Entered as Reported by: JO MUNOZ on 04/21/22 1300 Last Action: Reviewed Lisinopril (Lisinopril) 5 Mg Tablet, 5 MG PO HS, (Reported) Entered as Reported by: JO MUNOZ on 04/21/22 1300 Last Action: Reviewed Magnesium Oxide (Magnesium Oxide) 400 Mg (241.3 Mg Magnesium) Tablet, 400 MG PO DAILY, (Reported) Entered as Reported by: JO MUNOZ on 04/21/22 1300 Last Action: Reviewed Metformin HCl (Metformin HCl) 1,000 Mg Tablet, 1,000 MG PO BID, (Reported) Entered as Reported by: JO MUNOZ on 04/21/22 1300 Last Action: Reviewed Multivitamin (Multivitamin) 1 Each Tablet, 1 EACH PO DAILY, (Reported) Entered as Reported by: JO MUNOZ on 04/21/22 1300 Last Action: Reviewed Omeprazole (Omeprazole) 20 Mg Tablet.dr, 20 MG PO DAILY, (Reported) Entered as Reported by: JO MUNOZ on 04/21/22 1334 Last Action: Reviewed Simvastatin (Simvastatin) 20 Mg Tablet, 20 MG PO HS, (Reported) Entered as Reported by: JO MUNOZ on 04/21/22 1300 Last Action: Reviewed Spironolactone (Spironolactone) 25 Mg Tablet, 25 MG PO DAILY, (Reported) Entered as Reported by: JO MUNOZ on 04/21/22 1300 Last Action: Reviewed Discontinued Medications Diltiazem HCl (Diltiazem 24Hr ER) 240 Mg Cap.er.24h, 240 MG PO DAILY Discontinued Reason: Duplicate Order Prescribed by: HENRI MACIEL on 04/22/22 0454 Last Action: Discontinued Sotalol HCl (Sotalol) 80 Mg Tablet, 80 MG PO BID, (Reported) Discontinued Reason: No Longer Taking Entered as Reported by: JO MUNOZ on 04/21/22 1302 Last Action: Discontinued Past Ojiioxv-Njzrkt-Wqqeul Hx Patient Social History Tobacco Use?: Yes Smoking Status: Former Smoker Substance use?: Yes Substance type: Marijuana (edibles; last use was in March 2022) Alcohol Use?: No Immunizations Up To Date Date of Influenza Vaccine: Feb 21, 2022 First/Initial COVID19 Vaccinat: UNKNOWN Second COVID19 Vaccination Miguel: UNKNOWN Tetanus Booster (TDap): Less Than 5 Years Current Status status: No status: No Communicates: Verbally Primary Language: [place] Preferred Spoken Language: [place]se Is interpretation needed?: No Sensory deficits: Vision impairment Implanted or Applied Medical D: Other Past Medical History Surgeries: Cardiac, Gallbladder Atrial Fibrillation, Irregular Heartbeat, Palpitations Sexually Transmitted Disease: No Family Medical History No Pertinent Family Hx Review of Systems Constitutional: no symptoms reported EENTM: no symptoms reported Respiratory: no symptoms reported; No short of breath Cardiovascular: palpitations, other (racing HR) Gastrointestinal: no symptoms reported; No abdominal pain, No constipation, No diarrhea, No nausea, No vomiting Genitourinary: no symptoms reported Musculoskeletal: no symptoms reported Skin: no symptoms reported Psychiatric/Neurological: No Symptoms Reported; Denies Headache Physical Exam Vital Signs Vital Signs - First Documented 05/06/22 11:57 Temp 37.0 Pulse 81 Resp 18 B/P (MAP) 97/65 (76) Pulse Ox 97 O2 Delivery Room Air Capillary Refill : Less Than 3 Seconds Height, Weight, BMI Height: 5'10" Weight: 320lbs. oz. 145.409550cy; 46.37 BMI Method:Stated General Appearance: No Apparent Distress Eyes: Bilateral Eye PERRL HEENT: PERRL/EOMI Respiratory: Lungs Clear, Normal Breath Sounds, No Accessory Muscle Use, No Respiratory Distress Cardiovascular: Regular Rate, Rhythm, No Edema, Normal Peripheral Pulses (L radial pulse +2) Gastrointestinal: Normal Bowel Sounds, Non Tender, Soft Extremity: No Pedal Edema Neurologic/Psychiatric: Alert, Oriented x3, Normal Mood/Affect Skin: Normal Color, Warm/Dry Assessment/Plan Assessment and Plan 1. Atrial fibrillation with RVR -Appreciated Cardiology plan -Multaq 400mg PO daily -Diltiazem 125ml @ 5mls/hr Q24H IV -Continue to monitor BP 2. Hypokalemia -3.4 on 05/07 s/p replacement with KCl 40 meq PO 3. Type 2 Diabetes mellitus -Resume home medications when home and have resumed diet Admission Diagnosis Admission Status: Observation Reason for Inpatient Admission: atrial fibrillation with RVR Clinical Quality Measures AMI/AHF: ASA po Prior to arrival: ZOYA Alvarado MD 05/07/22 1158: Allergies and Home Medications Allergies Coded Allergies: Penicillins (Verified Allergy, Severe, 04/21/22) HIVES OR SWELLING sulfamethoxazole (Unverified Allergy, Intermediate, HIVES, 12/08/14) trimethoprim (Unverified Allergy, Intermediate, HIVES, 12/08/14) amoxicillin (Unverified Allergy, Unknown, 12/08/14) doxycycline (Unverified Allergy, Unknown, 12/08/14) Patient Home Medication List Acyclovir (Acyclovir) 400 Mg Tablet, 400 MG PO DAILY, (Reported) Entered as Reported by: JO MUNOZ on 04/21/22 1300 Last Action: Reviewed Apixaban (Eliquis) 5 Mg Tablet, 5 MG PO BID, (Reported) Entered as Reported by: JO MUNOZ on 04/21/22 1300 Last Action: Reviewed Aspirin (Aspirin EC) 81 Mg Tablet.dr, 81 MG PO DAILY, (Reported) Entered as Reported by: JO MUNOZ on 04/21/22 1300 Last Action: Reviewed Biotin (Biotin) 2,500 Mcg Capsule, 10,000 MCG PO DAILY, (Reported) Entered as Reported by: JO MUNOZ on 04/21/22 1300 Last Action: Reviewed Cetirizine HCl (Cetirizine HCl) 10 Mg Tablet, 10 MG PO DAILY, (Reported) Entered as Reported by: JO MUNOZ on 04/21/22 1300 Last Action: Reviewed Diltiazem HCl (Diltiazem HCl) 60 Mg Tablet, 60 MG PO PRN PRN for SUPRAVENTRICULAR TACHYCARDIA Prescribed by: JENIFER IVAN on 04/28/22 1403 Last Action: Reviewed Diltiazem HCl (Diltiazem 24Hr ER) 240 Mg Cap.er.24h, 240 MG PO DAILY, (Reported) Entered as Reported by: JO MUNOZ on 05/07/22 1018 Last Action: Continued Dronedarone HCl (Multaq) 400 Mg Tablet, (Reported) Entered as Reported by: JO MUNOZ on 05/07/22 1018 Last Action: Reviewed Furosemide (Furosemide) 20 Mg Tablet, 20 MG PO DAILY, (Reported) Entered as Reported by: JO MUNOZ on 04/21/22 1300 Last Action: Reviewed Glimepiride (Glimepiride) 2 Mg Tablet, 2 MG PO BID, (Reported) Entered as Reported by: JO MUNOZ on 04/21/22 1300 Last Action: Reviewed Glucosa Ruiz 2Kcl/Chondroitin Ruiz (Glucosamine & Chondroitin Cap) 500 Mg-400 Mg Capsule, 2 EACH PO DAILY, (Reported) Entered as Reported by: JO MUNOZ on 04/21/22 1300 Last Action: Reviewed Ibuprofen/Acetaminophen (Advil Dual Action 250Mg-125Mg) 125 Mg-250 Mg Tablet, 2 EACH PO BID, (Reported) Entered as Reported by: JO MUNOZ on 05/07/22 1018 Last Action: Reviewed L.acidoph & Paracasei,B.lactis (Probiotic) 10 Billion Cell Capsule, 1 EACH PO D AILY, (Reported) Entered as Reported by: JO MUNOZ on 04/21/22 1300 Last Action: Reviewed Lisinopril (Lisinopril) 5 Mg Tablet, 5 MG PO HS, (Reported) Entered as Reported by: JO MUNOZ on 04/21/221299 Last Action: Reviewed Magnesium Oxide (Magnesium Oxide) 400 Mg (241.3 Mg Magnesium) Tablet, 400 MG PO DAILY, (Reported) Entered as Reported by: JO MUNOZ on 04/21/221299 Last Action: Reviewed Metformin HCl (Metformin HCl) 1,000 Mg Tablet, 1,000 MG PO BID, (Reported) Entered as Reported by: JO MUNOZ on 04/21/22 1300 Last Action: Reviewed Multivitamin (Multivitamin) 1 Each Tablet, 1 EACH PO DAILY, (Reported) Entered as Reported by: JO MUNOZ on 04/21/22 1300 Last Action: Reviewed Omeprazole (Omeprazole) 20 Mg Tablet.dr, 20 MG PO DAILY, (Reported) Entered as Reported by: JO MUNOZ on 04/21/22 1334 Last Action: Reviewed Simvastatin (Simvastatin) 20 Mg Tablet, 20 MG PO HS, (Reported) Entered as Reported by: JO MUNOZ on 04/21/22 1300 Last Action: Reviewed Spironolactone (Spironolactone) 25 Mg Tablet, 25 MG PO DAILY, (Reported) Entered as Reported by: JO MUNOZ on 04/21/22 1300 Last Action: Reviewed Discontinued Medications Diltiazem HCl (Diltiazem 24Hr ER) 240 Mg Cap.er.24h, 240 MG PO DAILY Discontinued Reason: Duplicate Order Prescribed by: HENRI MACIEL on 04/22/22 0951 Last Action: Discontinued Sotalol HCl (Sotalol) 80 Mg Tablet, 80 MG PO BID, (Reported) Discontinued Reason: No Longer Taking Entered as Reported by: JO MUNOZ on 04/21/22 1302 Last Action: Discontinued Assessment/Plan Assessment and Plan Patient was admitted to the hospital secondary to fibrillation with rapid ventr icular rate. She is known to me from recent admission for similar. She follows with EP at and was supposed to stop her sotalol and begin Multaq this week. Unfortunately she was unable to fill her Multaq due to some insurance issues. She was attempted to control her heart rate at home with her as needed Dital exam but continued to feel poorly and had low blood pressures prompting her to seek evaluation in the emergency department. She underwent cardioversion x2 in the ER without yazdanism of sinus rhythm. She was admitted following an amiodarone bolus for initiation of Multaq. Cardiology was consulted and performed a cardioversion this morning with successful conversion to sinus rhythm. She reports feeling very well and is hopeful for discharge home. I did call and speak with [facility] pharmacy and confirmed that she will be able to fill her Multaq today. She was discharged home in stable improved condition to follow-up with her primary care physician, Dr. Kwok. She is also to follow-up with cardiology next week on the for stress test. Supervisory-Addendum Brief Verification & Attestation Participated in pt care: history, MDM, physical Personally performed: exam, history, MDM, supervision of care Care discussed with: Medical Student Procedures: n/a Results interpretation: Verified all documentation Verification and Attestation of Medical Student E/M Service A medical student performed and documented this service in my presence. I reviewed and verified all information documented by the medical student and made modifications to such information, when appropriate. I personally performed the physical exam and medical decision making. Zoya Iraheta, May 07, 2022,11:58 ALEE PACHECO May 07, 2022 09:47 OZYA IRAHETA MD May 07, 2022 11:58
[2022-05-07] MEDS ORDERED: DILT240C91 PO (10:18)
[2022-05-07] MEDS ORDERED: DRON400T6 (10:18)
[2022-05-07] MEDS ORDERED: [UNRECOGNIZED DRUG - CODE] PO (10:18)
--- NOTE | 2022-05-07 10:23 | Cardioversion ---
Cardioversion PROCEDURE PHYSICIAN: Penelope Sinclair DATE OF PROCEDURE: 05/07/22 DIRECT EXTERNAL ELECTRICAL CARDIOVERSION: Indications: Atrial flutter with rapid ventricular response Preoperative diagnoses: Atrial flutter with rapid ventricular response Postoperative diagnosis: Sinus rhythm, Successful Electrical Cardioversion Anesthesia: By Anesthesia services Complications: None Specimen: None Contrast: 0 Flouroscopy: none Procedure Details: The patient was brought the laboratory equipment cleaner after informed consent was taken, all the risks and complications were explained including the risk of stroke. Electrical cardioversion was carried out with anesthesia support with propofol. 200 joules of synchronized shock was delivered through external patches which promptly restored sinus rhythm. The patient tolerated the procedure well. Conclusions: Successful electrical cardioversion and terminating atrial flutter PENELOPE SINCLAIR MD May 07, 2022 10:23
--- NOTE | 2022-05-07 10:43 | Discharge Inst-Simple/Standard ---
Discharge Inst-Standard Patient Instructions/Follow Up Plan of Care/Instructions/FU: Please continue to take your medications as written. Please follow up with your primary care doctor to follow up this hospital stay. Activity as Tolerated: Yes Discharge Diet: No Restrictions Return to The Hospital For: Chest pain, palptations, shortness of breath, fever, weakness, if you feel you are getting worse. ZOYA IRAHETA MD May 07, 2022 10:43
[2022-05-07] MEDS: DRONEDARONE 400 MG TABLET PO SCH (11:10)
--- NOTE | 2022-05-07 11:52 | Anesthesia-General Post-Op ---
MAC Patient Condition Mental Status/LOC: Same as Preop Cardiovascular: Satisfactory Nausea/Vomiting: Absent Respiratory: Satisfactory Pain: Controlled Complications: Absent Post Op Complications Complications None Follow Up Care/Instructions Patient Instructions None needed. Anesthesiology Discharge Order Discharge Order Patient is doing well, no complaints, stable vital signs, no apparent adverse anesthesia problems. No complications reported per nursing. DIPAK SIM CRNA May 07, 2022 11:52
[2022-05-07] MEDS: MAGNESIUM 1 GM/100 ML IVPB 100 ML IV SCH (14:03)
[2022-05-07] MEDS ORDERED: APIXABAN 5 MG (ELIQUIS) TABLET PO NR (15:30)
== END 2022-05-07 14:00 | disposition home or self-care (01) ==
LOC: EDUNIT# 11:37 → ER 11:38 → ICU 16:04 → UNDOADMOB 16:04 → ICU 18:37 → UNDODISOB 05-07 17:20
PROVIDERS: ADMIT Family Medicine; ATTEND Family Medicine
DX: I48.0 Paroxysmal atrial fibrillation (principal); I48.92 Unspecified atrial flutter; E87.6 Hypokalemia; E11.9 Type 2 diabetes mellitus without complications; E78.5 Hyperlipidemia, unspecified; E66.01 Morbid (severe) obesity due to excess calories; I95.9 Hypotension, unspecified; Z68.42 Body mass index [BMI] 45.0-49.9, adult; Z87.891 Personal history of nicotine dependence; Z79.82 Long term (current) use of aspirin
CPT/HCPCS: 80048 ×2; 83735; 85025; 85027; 87081; 93005 ×2; 93041; 96366 ×2; 96376 ×2; 99285; G0378; 36415

== ENCOUNTER → 2022-05-20 | Outpatient (CLI) | payer OTHER ==
[~2022-05-20] MED LIST changes: +DRON400T6; +[UNRECOGNIZED DRUG - CODE] PO
== END ==
LOC: CARD 13:16
PROVIDERS: ATTEND Internal Medicine Cardiovascular Disease
DX: I48.92 Unspecified atrial flutter (principal)
CPT/HCPCS: 93005